=== PATIENT | female | born 1955 | race Caucasian/White ===

== ENCOUNTER 2016-10-22 17:18 | Emergency (ER) | payer BC ==
[~2016-10-22] VITALS: Ht 167.6 cm; Wt 76.7 kg
[~2016-10-22 17:18] MED LIST: ALPRAZOLAM 0.50.5 M1 PO; AMBIEN 10 MG TA10 MG PO; CARAFATE 11 GM/10 M1 PO; CIPRO500 MG PO; DIFLUCAN200 MG PO; FIORICET 50-321 EACH PO; FLAGYL500 MG PO; LOMOTIL TABLET1 EACH PO; NEURONTIN 300300 M1 PO; ONDANSETRON HCL4 M2 PO; PERCOCET 5-3251 EACH PO; PHENERGAN 25 MG25 M1 PO; TOPROL XL100 MG PO; VITAMIN D350000 UNIT PO; WELLBUTRIN SR150 MG PO; ZOFRAN ODT4 MG PO; ZOLOFT 50 MG TA50 M1 PO; ZOLOFT50 MG PO
[2016-10-22] MEDS ORDERED: NORCO 5-325 TA1 EACH PO (20:43)
[2016-10-27] MEDS ORDERED: BACTRIM DS TAB1 EACH PO (00:18)
[2016-10-30] MEDS ORDERED: ENOXAPARIN40 MG/0.1 SUBQ (12:49)
[2016-10-30] MEDS ORDERED: PROTONIX40 M2 PO (12:49)
[2016-10-31] MEDS ORDERED: PERCOCET 5-3251 EACH PO (10:31)
[2016-11-15] MEDS ORDERED: ZOFRAN ODT4 MG PO (11:43)
[2016-11-15] MEDS ORDERED: PHENERGAN 25 MG25 M1 PO (11:43)
== END 2016-10-22 20:55 | disposition home or self-care (01) ==
LOC: ER 17:18
DX: S52.612A Displaced fracture of left ulna styloid process, initial encounter for closed fracture (principal); S80.212A Abrasion, left knee, initial encounter; I10 Essential (primary) hypertension; K21.9 Gastro-esophageal reflux disease without esophagitis; J45.909 Unspecified asthma, uncomplicated; Z98.890 Other specified postprocedural states; Z90.49 Acquired absence of other specified parts of digestive tract; Z88.0 Allergy status to penicillin; Z88.1 Allergy status to other antibiotic agents; Z91.030 Bee allergy status; W54.1XXA Struck by dog, initial encounter; Y93.9 Activity, unspecified; Y92.9 Unspecified place or not applicable; Y99.9 Unspecified external cause status

== ENCOUNTER 2016-11-28 15:41 | Inpatient (IN) | payer OTHER, BC ==
[~2016-11-28] VITALS: Ht 167.6 cm; Wt 81.0 kg
--- NOTE | ~2016-11-28 | EKG ---
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
--- NOTE | ~2016-11-28 | HC ---
[facility] [place] [address] CONSULTATION Name: PRITESH KILPATRICK Room #: 311-P ADM IN M.R.#: [id number] Admission: 11/28/16 Attend Phys: Leo Avila MD Discharge: Date of : 55 Report #: [id number] THIS REPORT FOR: //name// CC: Leo Lemon DATE OF SERVICE: 11/29/2016 CONSULTATION: Infectious diseases. HISTORY OF PRESENT ILLNESS: Ms Kilpatrick is a 61-year-old white female who comes to [facility] emergency room because of depressed mental status. The ER note documents the patient was screaming and moaning incoherently. Apparently, there was a recent history of nausea, vomiting and diarrhea times 12 on the previous 24 hours. The patient has a history of GI problems and has had GI consultation during her last 2 hospitalizations, apparently has had upper and lower endoscopies twice in the last year without any significant diagnosis except for esophageal reflux. The patient did have H. pylori last year and was treated for that as well. The patient was sedated in the emergency room. She was noted to have a fever up to 101. Infectious disease consultation was requested to assist with further evaluation and management. The patient had been admitted on November 19, after suffering a fall. She had a fracture of the left wrist, which required open reduction and internal fixation. The patient was hospitalized for 3 days. She did have an infectious disease and GI consultation during that hospitalization and was discharged to a [facility]. I believe she comes to the ER today from home. The patient has past history, which includes rheumatic heart disease as a child, gastroesophageal reflux, COPD, asthma, and hypertension. It was noted in the previous notes that the patient was very stressed out by her chronic alcoholism. Her medication list does show medication for anxiety, depression, nausea, and reflux. PAST SURGICAL HISTORY: Includes appendectomy, cholecystectomy as well as open reduction and internal fixation of the left wrist. I believe she had surgery for fracture on the right wrist. ALLERGIES: The chart notes allergy to DOXYCYCLINE and anaphylactic allergy to PENICILLIN as well as BEE STINGS. MEDICATION RECONCILIATION: Current medications include acetaminophen 650 mg q.4h p.o. p.r.n., haloperidol 5 mg IV q.6 p.r.n., Toradol 30 mg IV q.8 p.r.n. The patient did receive a single dose of vancomycin in the emergency room. The patient also received the haloperidol, hydrocodone and Zofran. [address] [address] CONSULTATION Name: PRITESH KILPATRICK Room #: 311-P [facility] IN ..#: [id number] Admission: 11/28/16 Attend Phys: Leo Avila MD Discharge: Date of : 55 Report #: [id number] FAMILY HISTORY: Noncontributory. SOCIAL HISTORY: The chart shows the patient is single. Apparently, there is a daughter who was able to give additional history last night. The chart has no history of tobacco. The ER noted no alcohol, although Dr. Rice did note the history of alcoholism. No history of illegal drugs. The patient is on Medicare at age 61. REVIEW OF SYSTEMS: Unavailable as the patient is deep sedated to the point of being unresponsive. PHYSICAL EXAMINATION: GENERAL: The patient appears her stated age. She appears to be sleep being comfortably, in no distress. VITAL SIGNS: Show temperature this morning was 100.3 axillary, blood pressure 112/64, pulse 77, and respirations 19, maximum temperature last night was 101. SKIN: Shows a number of traumatic type ecchymoses on the lower extremities, no other rash, lesions, wounds nor exanthem. ENT: Negative. NEUROLOGIC: Mentally, the patient is still sedated from last night's medications. She would not arouse to voice or examination. CARDIOVASCULAR: The heart sounds are normal. LUNGS: Clear. ABDOMEN: Belly is soft, not tender. There has not been any diarrhea or stools since the patient has come to the hospital. EXTREMITIES: Shows some venostasis changes and trace to 1+ edema in the feet, but otherwise unremarkable. LABORATORY DATA: White count has gone from 9.5->6.1, hemoglobin has gone from 12.4->10.0, hematocrit from 37->30.5 percent with hydration, and platelets have gone from 274,000->190,000. Electrolytes are normal. BUN 26, creatinine has gone from 1.9->1.8. Liver function tests are normal. Lipase is normal. CPK is normal. Troponin is normal. Lactate is normal. Albumin is normal. TSH is normal. The chest x-ray is clear. Urinalysis is negative. Urine drug screen shows benzodiazepines. The patient is prescribed Xanax. Influenza nasal antigens are negative. Blood cultures times 2 are negative at 12 hours. In summary, the patient with chronic GI complaints with nausea, vomiting, and diarrhea who comes the ER screaming incoherently. She is sedated. She did have a temperature of 101.0, which is now down to 100.3. Her examination is otherwise unremarkable except for effects of sedation. At this time, I find no convincing evidence of infection. She did have a fever with abnormal mental status. One needs to be concerned about the possibility of aspiration; however, at this time I think I would like to observe the patient [facility] [address] [place] [address] CONSULTATION Name: PRITESH KILPATRICK Room #: 311-P ADM IN M.R.#: [id number] Admission: 11/28/16 Attend Phys: Leo Avila MD Discharge: Date of : 55 Report #: [id number] off antibiotic therapy, obtain followup CBC, chest x-ray, and observe her temperature. If she has another fever, we can repeat blood cultures. If the patient develops cough or pneumonia, we can try to do a sputum culture. An LP was attempted last night. At this time, the patient has nothing to suggest acute bacterial meningitis. Should she awake up and complaining of headaches, stiff neck, photophobia, repeat attempted LP possibly under fluoroscopy would be appropriate. For now, we will continue the patient on close observe. I appreciate the opportunity of input in the care of this patient. Thank you for requesting infectious disease consult. Dr. Rice will return on Thursday for additional followup. <ELECTRONICALLY SIGNED> By: Rasheed Gomez MD 11/30/16 2037 0942 1833 Rasheed Gomez MD /nt
--- NOTE | ~2016-11-28 | HC ---
[facility] [place] [address] CONSULTATION Name: PRITESH KILPATRICK Room #: 311-P [facility] IN M.R.#: [id number] Admission: 11/28/16 Attend Phys: Haja Donahue MD Discharge: 12/09/16 Date of : 55 Report #: [id number] THIS REPORT FOR: //name// CC: Haja Lemon REASON FOR CONSULTATION: Tachycardia. HISTORY OF PRESENT ILLNESS: The patient is a 61-year-old woman with a history of longstanding hypertension. She was admitted with nausea, vomiting and diarrhea. In association with this, she had intense dizziness and a "spinning room sensation." She was admitted to telemetry for further evaluation. She was also noted to be febrile to 101.9 degrees. While on telemetry monitoring, she had intermittent sinus bradycardia and this was predominantly during sleeping hours and asymptomatic. Her metoprolol dose was substantially reduced from 100 mg daily to 25 mg. She did have a reflex tachycardia with heart rates in the 90-100 range. There were frequent atrial premature complexes, although no sustained episodes of supraventricular tachycardia were identified. There have been no episodes of atrial fibrillation or atrial flutter no episodes of heart block. She did have a nonsyncopal fall while walking her dog over a month ago sustaining a left arm fracture. She reports this was not associated with loss of consciousness or dizziness of any kind. She denies a history of syncope. She denies chest heaviness, pressure or ischemic type symptoms. HOME MEDICATIONS: Include appropriate on XL 150 mg daily, Toprol-XL 100 mg daily and alprazolam. PAST MEDICAL HISTORY: Medical records have been reviewed and include history of tonsillectomy, hypertension, cholecystectomy, H. pylori and prior sepsis. SOCIAL HISTORY: Nonsmoker. FAMILY HISTORY: Unremarkable for premature coronary artery disease. REVIEW OF SYSTEMS: All systems negative except as that noted above. PHYSICAL EXAMINATION: GENERAL: A pleasant woman, in no distress. VITAL SIGNS: Blood pressure is 130/73, heart rate of 80 and regular. She is afebrile and 178 pounds. HEENT: There are neither xanthelasma, subcutaneous xanthomata, oral mucosal or digital cyanosis or kyphoscoliosis present. CHEST: Clear to auscultation and percussion. CARDIAC: Regular rate and rhythm with a soft systolic murmur at the left sternal border. Jugular venous pressure is not elevated. ABDOMEN: Soft and nontender. Left forearm is in a cast. EXTREMITIES: Without cyanosis, clubbing or edema. Radial pulses are 2+. [facility] [address] [place] [address] CONSULTATION Name: PRITESH KILPATRICK Room #: [address] [place] [address].#: [id number] Admission: 11/28/16 Attend Phys: Haja Donahue MD Discharge: 12/09/16 Date of : 55 Report #: [id number] NEUROLOGICAL: She is alert with a nonfocal exam. LABORATORY DATA: Sodium 139; potassium 3.3, which is being supplemented and creatinine 1.4, down from 1.9 on admission. White count 4.6, hemoglobin 11, hematocrit 34 and platelet count 220. RADIOLOGICAL DATA: Ventilation perfusion scan was negative. Lower extremity venous Doppler was negative. Chest x-ray was normal. EKG, sinus tachycardia, otherwise normal tracing. IMPRESSION: 1. Intermittent sinus bradycardia during sleeping hours, clinically asymptomatic. 2. Sinus tachycardia, likely representing beta blockade withdrawal, component of fevers may also be contributing. 3. Nausea, vomiting and diarrhea, resolved. 4. Hypertension. 5. Sleep apnea by history, probably severe. This may be driving some of her dysrhythmias and hypertension. RECOMMENDATIONS: 1. Continued use of metoprolol succinate. I agree with the use of amlodipine in addition for systolic hypertension. 2. Consider outpatient sleep study. 3. Recent thyroid function studies have been normal. No additional cardiovascular testing or evaluation is needed. I have discussed these issues with the patient in detail. Thank you for asking me to participate in her care. <ELECTRONICALLY SIGNED> By: Dejuan Mays MD, FACC 12/10/16 0939 1806 0343 Dejuan Mays MD, FACC /nt
--- NOTE | ~2016-11-28 | HC ---
[facility] [place] [address] CONSULTATION Name: PRITESH KILPATRICK Room #: 311-P ADM IN M.R.#: [id number] Admission: 11/28/16 Attend Phys: Haja Donahue MD Discharge: Date of : 55 Report #: [id number] THIS REPORT FOR: //name// CC: Haja Lemon DATE OF SERVICE: 12/01/2016 HISTORY OF PRESENT ILLNESS: The patient is a 61-year-old white female admitted with acute mental status changes, fever, unknown etiology, was screaming. CT of the head was negative, was combative, given Haldol. Gradually stabilized with improvement of her overall mentation. She has some persistent nausea and vomiting and gastroenterology is following, some generalized abdominal pain. She is thought to have a fever, question viral. Mental status changes have improved. She is noted to be alert and oriented x 3, question if this was due to polypharmacy/benzodiazepines, appears to be better. We are seeing her in rehabilitation medicine consultation. PAST MEDICAL HISTORY: Includes cholecystectomy, tonsillectomy, hypertension, GERD. She had a recent left arm fracture. She indicated she underwent surgery of the left distal radius with closed reduction and percutaneous pinning by Dr. Weiner. She has a history of a "leaky" heart valve. History of H. pylori and sepsis. MEDICATIONS: Please see the full medication listing. SOCIAL HISTORY: Lives in a house alone. Premorbid front-wheeled walker ambulator, 6 steps in, was driving, has involved family. REVIEW OF SYSTEMS: Complains of some nausea. Notes that she utilizes her left upper extremity with the short arm cast in place for functional ADLs and placement on the walker handle. Did not offer any complaints of other extremity pain. Again, no chest pain or shortness of breath. PHYSICAL EXAMINATION: GENERAL: She is a 61-year-old white female in no obvious distress. VITAL SIGNS: Last recorded temperature is 98, pulse 64, respirations 16 and blood pressure 175/96. NEUROLOGIC: She is alert. She follows basic 1 step commands without difficulty. Facies are symmetric. Functional range of motion of the right upper extremity is without focal weakness. Left upper extremity reveals the short arm cast. It appears to have good functional use of that upper extremity with strength at least a grade 4-/5. In her lower extremities, there is no focal calf swelling with functional range of motion with strength to grade 4-/5. She has been contact guard with sit to stand, on occasional min assist. She has ambulated up to 80 feet front-wheeled walker, contact guard assistance. [address] [address] CONSULTATION Name: PRITESH KILPATRICKHLEEN Room #: 311-P [facility] IN M.R.#: [id number] Admission: 11/28/16 Attend Phys: Haja Donahue MD Discharge: Date of : 55 Report #: [id number] ASSESSMENT: A 61-year-old white female with the following problem list: 1. Acute mental status changes, question due to polypharmacy. 2. Fever, question etiology, possibly viral. 3. Acute on chronic renal failure. 4. Nausea with some continued symptoms, GI is involved, Zoan p.r.n. 5. Enteritis. 6. Question benzodiazepine withdrawal. PLAN: Therapies are working with her on gradually improving her strength and functional mobility issues. We will add occupational therapy. Note that, case management is looking into retirement facility options. Would agree with this plan. Would recommend a retirement facility stay for this patient. <ELECTRONICALLY SIGNED> By: Migue Aguirre MD 12/02/16 1205 1626 2342 Migue Aguirre MD /nt
[~2016-11-28 15:41] MED LIST changes: +BACTRIM DS TAB1 EACH PO; +ENOXAPARIN40 MG/0.1 SUBQ; +NORCO 5-325 TA1 EACH PO; +PROTONIX40 M2 PO
[2016-11-28 16:11] LABS: ABSOLUTE NEUTROPHILS 7.2 thou/uL (1.4-8.2); BASOPHILS 0.6 % (0.0-2.0); EOSINOPHILS 0.5 % (0.0-3.0); HEMATOCRIT 37.3 % (37.0-47.0); HEMOGLOBIN 12.4 gm/dL (12.0-15.0); LYMPHOCYTES 18.4 % (24.0-44.0); MCH 29.4 pg (26.0-34.0); MCHC 33.2 g/dL (28.0-37.0); MCV 88.7 fL (80.0-100.0); MONOCYTES 4.6 % (1.0-8.0); PLATELET COUNT 274 thou/uL (150-400); POLYS 75.9 % (36.0-66.0); RDW 14.4 % (10.5-14.5); WBC 9.5 thou/uL (4.0-11.0)
[2016-11-28 16:16] LABS: MANUAL DIFF NO
[2016-11-28 16:25] LABS: ALBUMIN 3.5 g/dL (3.4-5.0); CALCIUM 9.8 mg/dL (8.5-10.1); CREATININE 1.9 mg/dL (0.6-1.3); POTASSIUM 3.8 mmol/L (3.5-5.1); TOTAL BILIRUBIN 1.4 mg/dL (<0.1-1.0); TOTAL PROTEIN 7.5 g/dL (6.4-8.2)
[2016-11-28 16:37] LABS: TROPONIN-I < 0.04 ng/mL (<0.04-0.07)
[2016-11-28 18:01] LABS: URINE BLOOD NEGATIVE (Negative); URINE COLOR YELLOW; URINE GLUCOSE-RANDOM* NEGATIVE (Negative); URINE KETONES 1+ (Negative); URINE NITRITE NEGATIVE (Negative); URINE PROTEIN (DIPSTICK) NEGATIVE (Negative); URINE SPECIFIC GRAVITY 1.025 (1.003-1.035); URINE UROBILINOGEN 0.2 E.U./dl (0.2-1.0)
[2016-11-28 18:04] LABS: URINE BILIRUBIN NEGATIVE (Negative)
[2016-11-28 18:37] LABS: AMP/METHAMP Negative (Negative); BARBITURATES Negative (Negative); BENZODIAZEPINES POSITIVE (Negative); COCAINE Negative (Negative); METHADONE Negative (Negative); OPIATES Negative (Negative); PCP Negative (Negative); THC Negative (Negative)
[2016-11-29 03:03] LABS: ABSOLUTE NEUTROPHILS 3.8 thou/uL (1.4-8.2); BASOPHILS 0.6 % (0.0-2.0); EOSINOPHILS 0.7 % (0.0-3.0); HEMATOCRIT 30.5 % (37.0-47.0); LYMPHOCYTES 27.3 % (24.0-44.0); MCH 29.6 pg (26.0-34.0); MCV 89.8 fL (80.0-100.0); MONOCYTES 9.4 % (1.0-8.0); RBC 3.39 mil/uL (4.20-5.00); RDW 14.5 % (10.5-14.5); WBC 6.1 thou/uL (4.0-11.0)
[2016-11-29 03:12] LABS: PLATELET COUNT 190 thou/uL (150-400)
[2016-11-29 03:13] LABS: MANUAL DIFF NO
[2016-11-29 03:15] LABS: ALBUMIN 2.6 g/dL (3.4-5.0); CALCIUM 8.6 mg/dL (8.5-10.1); CREATININE 1.8 mg/dL (0.6-1.3); MAGNESIUM 1.3 mg/dL (1.8-2.4); POTASSIUM 3.8 mmol/L (3.5-5.1); TOTAL BILIRUBIN 1.2 mg/dL (<0.1-1.0)
[2016-11-29 08:33] LABS: CHOLESTEROL 184 mg/dL (<200); HDL CHOLESTEROL 48 mg/dL (>40); LDL CHOLESTEROL 121 mg/dL (<100); TC:HDL 3.8 Ratio (Not establshd); TRIGLYCERIDE 75 mg/dL (<150); VLDL 15 mg/dL (<40)
[2016-11-29 18:06] LABS: FREE T4 1.56 ng/dL (0.82-1.77)
[2016-11-29 20:10] LABS: GLYCOHEMOGLOBIN (HGB A1C) 4.8 % (4.8-5.6)
[2016-11-30 02:57] LABS: ABSOLUTE NEUTROPHILS 3.1 thou/uL (1.4-8.2); BASOPHILS 0.5 % (0.0-2.0); HEMATOCRIT 28.3 % (37.0-47.0); HEMOGLOBIN 9.4 gm/dL (12.0-15.0); LYMPHOCYTES 27.3 % (24.0-44.0); MCH 29.5 pg (26.0-34.0); MCHC 33.1 g/dL (28.0-37.0); MCV 89.2 fL (80.0-100.0); PLATELET COUNT 163 thou/uL (150-400); POLYS 63.2 % (36.0-66.0); RBC 3.18 mil/uL (4.20-5.00); RDW 14.5 % (10.5-14.5)
[2016-11-30 03:00] LABS: MANUAL DIFF NO
[2016-11-30 03:12] LABS: ALBUMIN 2.3 g/dL (3.4-5.0); CALCIUM 8.4 mg/dL (8.5-10.1); CREATININE 1.4 mg/dL (0.6-1.3); POTASSIUM 3.5 mmol/L (3.5-5.1); TOTAL BILIRUBIN 0.8 mg/dL (<0.1-1.0); TOTAL PROTEIN 5.3 g/dL (6.4-8.2)
[2016-11-30 08:03] LABS: MAGNESIUM 1.7 mg/dL (1.8-2.4)
[2016-12-01 05:20] LABS: CALCIUM 9.1 mg/dL (8.5-10.1); CREATININE 1.4 mg/dL (0.6-1.3); MAGNESIUM 1.5 mg/dL (1.8-2.4); POTASSIUM 3.6 mmol/L (3.5-5.1)
[2016-12-02] MEDS ORDERED: NEXIUM40 MG PO (10:12)
[2016-12-02] MEDS ORDERED: TOPROL XL100 MG PO (10:12)
[2016-12-02] MEDS ORDERED: PERCOCET 5-3251 EACH PO (10:12)
[2016-12-02] MEDS ORDERED: CARAFATE 11 GM/10 M1 PO (10:12)
[2016-12-02] MEDS ORDERED: HYDRALAZINE 2525 MG PO (10:13)
[2016-12-06] MEDS ORDERED: NORVASC10 MG PO (09:04)
[2016-12-06 19:52] LABS: HEMATOCRIT 34.6 % (37.0-47.0); HEMOGLOBIN 11.5 gm/dL (12.0-15.0); MCH 29.2 pg (26.0-34.0); MCHC 33.2 g/dL (28.0-37.0); MCV 87.9 fL (80.0-100.0); RBC 3.94 mil/uL (4.20-5.00); RDW 14.6 % (10.5-14.5); WBC 6.4 thou/uL (4.0-11.0)
[2016-12-06 20:12] LABS: % SATURATION 21 % (20-39); IRON 34 ug/dL (50-170); TIBC 165 ug/dL (250-450); UIBC 131 ug/dL
[2016-12-06 20:30] LABS: FOLIC ACID 3.4 ng/mL (8.6-58.9)
[2016-12-06 20:32] LABS: CREATININE 1.7 mg/dL (0.6-1.3); POTASSIUM 3.5 mmol/L (3.5-5.1)
[2016-12-06 20:37] LABS: ALBUMIN 2.6 g/dL (3.4-5.0); TOTAL BILIRUBIN 0.7 mg/dL (<0.1-1.0); TOTAL PROTEIN 6.3 g/dL (6.4-8.2)
[2016-12-07 05:53] LABS: HEMOGLOBIN 11.1 gm/dL (12.0-15.0); MCH 29.2 pg (26.0-34.0); MCHC 32.8 g/dL (28.0-37.0); MCV 88.9 fL (80.0-100.0); RBC 3.82 mil/uL (4.20-5.00); RDW 14.8 % (10.5-14.5); WBC 4.6 thou/uL (4.0-11.0)
[2016-12-07 06:10] LABS: CALCIUM 8.8 mg/dL (8.5-10.1); CREATININE 1.4 mg/dL (0.6-1.3); POTASSIUM 3.3 mmol/L (3.5-5.1)
[2016-12-08 05:40] LABS: HEMOGLOBIN 11.3 gm/dL (12.0-15.0); MCH 29.6 pg (26.0-34.0); MCHC 33.4 g/dL (28.0-37.0); MCV 88.6 fL (80.0-100.0); RBC 3.83 mil/uL (4.20-5.00); RDW 14.7 % (10.5-14.5); WBC 4.5 thou/uL (4.0-11.0)
[2016-12-08 05:41] LABS: CALCIUM 9.6 mg/dL (8.5-10.1); CREATININE 1.2 mg/dL (0.6-1.3)
[2016-12-09] MEDS ORDERED: TOPROL XL25 MG PO (10:23)
[2016-12-09] MEDS ORDERED: METOPROLOL SUCC50 MG PO (10:48)
[2016-12-09] MEDS ORDERED: CLARITHROMYCIN250 M2 PO (10:48)
[2016-12-09] MEDS ORDERED: FLAGYL 250 MG250 MG PO (10:48)
== END 2016-12-09 14:08 | DRG 682 ==
LOC: ER 15:41 → EROBS 19:07 → 3N 20:15 → ICU 20:54 → 3N 11-30 09:45
PROVIDERS: Family Medicine; Hospitalist; Internal Medicine Infectious Disease; Nurse Practitioner; Nurse Practitioner Family; Psychiatry & Neurology Neurology
DX: N17.9 Acute kidney failure, unspecified (principal); G93.40 Encephalopathy, unspecified; E44.1 Mild protein-calorie malnutrition; K52.9 Noninfective gastroenteritis and colitis, unspecified; M19.90 Unspecified osteoarthritis, unspecified site; K21.9 Gastro-esophageal reflux disease without esophagitis; J45.909 Unspecified asthma, uncomplicated; I09.9 Rheumatic heart disease, unspecified; B02.9 Zoster without complications; E86.0 Dehydration; E80.6 Other disorders of bilirubin metabolism; Z60.2 Problems related to living alone; R00.1 Bradycardia, unspecified; G47.30 Sleep apnea, unspecified; Z96.659 Presence of unspecified artificial knee joint; I12.9 Hypertensive chronic kidney disease with stage 1 through stage 4 chronic kidney disease, or unspecified chronic kidney disease; N18.9 Chronic kidney disease, unspecified; K57.90 Diverticulosis of intestine, part unspecified, without perforation or abscess without bleeding; Z96.669 Presence of unspecified artificial ankle joint; E86.9 Volume depletion, unspecified; J44.9 Chronic obstructive pulmonary disease, unspecified; T42.4X5A Adverse effect of benzodiazepines, initial encounter; Y92.89 Other specified places as the place of occurrence of the external cause; Z90.49 Acquired absence of other specified parts of digestive tract; Z88.0 Allergy status to penicillin; Z88.1 Allergy status to other antibiotic agents; Z80.0 Family history of malignant neoplasm of digestive organs; Z79.899 Other long term (current) drug therapy; Z87.81 Personal history of (healed) traumatic fracture
CPT/HCPCS: 10078; 10096

== ENCOUNTER 2016-12-17 15:05 | Emergency (ER) | payer OTHER, BC ==
[~2016-12-17] VITALS: Ht 167.6 cm; Wt 79.4 kg
--- NOTE | ~2016-12-17 | EKG ---
[address] [place] [address] ELECTROCARDIOGRAM REPORT Name: PRITESH KILPATRICKHLEEN Room #: [facility]#: [id number] Admission: 12/17/16 Attend Phys: Discharge: 12/17/16 Date of : 55 Report #: [id number] THIS REPORT FOR: //name// 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 significant abnormality Compared to ECG 11/28/2016 16:23:47 Sinus tachycardia no longer present ST and T wave abnormality no longer present Electronically Signed On 12-18-2016 8:25:52 CDT by Dejuan Mays [email or web address] <ELECTRONICALLY SIGNED> By: Dejuan Mays MD, [facility] 12/18/16 0825 154 154 Dejuan Mays MD, [facility] /EPI
[~2016-12-17 15:05] MED LIST changes: +CLARITHROMYCIN250 M2 PO; +FLAGYL 250 MG250 MG PO; +HYDRALAZINE 2525 MG PO; +METOPROLOL SUCC50 MG PO; +NEXIUM40 MG PO; +NORVASC10 MG PO; +TOPROL XL25 MG PO
[2016-12-17 15:34] LABS: ABSOLUTE NEUTROPHILS 5.2 thou/uL (1.4-8.2); BASOPHILS 1.2 % (0.0-2.0); EOSINOPHILS 0.9 % (0.0-3.0); HEMATOCRIT 34.9 % (37.0-47.0); HEMOGLOBIN 11.3 gm/dL (12.0-15.0); MCH 28.9 pg (26.0-34.0); MCHC 32.5 g/dL (28.0-37.0); MONOCYTES 5.9 % (1.0-8.0); PLATELET COUNT 298 thou/uL (150-400); RBC 3.91 mil/uL (4.20-5.00); RDW 15.3 % (10.5-14.5); WBC 7.5 thou/uL (4.0-11.0)
[2016-12-17 15:37] LABS: MANUAL DIFF NO
[2016-12-17 15:45] LABS: ANION GAP 8 mmol/L (7-16); BUN 15 mg/dL (7-18); CALCIUM 9.1 mg/dL (8.5-10.1); CHLORIDE 104 mmol/L (98-107); CO2 27 mmol/L (21-32); CREATININE 1.7 mg/dL (0.6-1.3); GLUCOSE 116 mg/dL (70-99); POTASSIUM 3.5 mmol/L (3.5-5.1); SODIUM 139 mmol/L (136-145)
[2016-12-17 15:52] LABS: ALBUMIN 3.1 g/dL (3.4-5.0); ALKALINE PHOSPHATASE 65 U/L (46-116); SGOT 16 U/L (15-37); SGPT 11 U/L (30-65); TOTAL BILIRUBIN 0.5 mg/dL (<0.1-1.0); TOTAL PROTEIN 6.8 g/dL (6.4-8.2); TROPONIN-I < 0.04 ng/mL (<0.04-0.07)
== END 2016-12-17 17:20 ==
LOC: ER 15:05
PROVIDERS: Physician Assistant
DX: R55 Syncope and collapse (principal); E86.0 Dehydration; Z98.890 Other specified postprocedural states; Z90.49 Acquired absence of other specified parts of digestive tract; I12.9 Hypertensive chronic kidney disease with stage 1 through stage 4 chronic kidney disease, or unspecified chronic kidney disease; N18.9 Chronic kidney disease, unspecified; N17.9 Acute kidney failure, unspecified; K21.9 Gastro-esophageal reflux disease without esophagitis; J45.909 Unspecified asthma, uncomplicated; Z91.030 Bee allergy status; Z88.0 Allergy status to penicillin; Z88.1 Allergy status to other antibiotic agents

== ENCOUNTER 2017-05-12 14:56 | Inpatient (IN) | payer OTHER, BC ==
[~2017-05-12] VITALS: Ht 167.6 cm; Wt 64.4 kg
--- NOTE | ~2017-05-12 | EKG ---
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 : 1955 Requested By: Edson Liu Order Number: [id number] MD: Deujan Mays Measurements Intervals [place] Rate: 82 P: 55 NM: 150 QRS: 0 QRSD: 80 T: 23 QT: 371 QTc: 434 Interpretive Statements Sinus rhythm Low voltage, precordial leads Borderline T abnormalities, anterior leads Compared to ECG 12/17/2016 15:41:31 T-wave abnormality now present Electronically Signed On 05-13-2017 7:52:55 CDT by Dejuan Mays [email or web address] <ELECTRONICALLY SIGNED> By: Dejuan Mays MD, FACC 05/13/17 0752 1510 1510 Dejuan Mays MD, [facility] /EPI
--- NOTE | ~2017-05-12 | P ---
[facility] [place] [address] PROCEDURE REPORT Name: PRITESH KILPATRICK Room #: 313-P [facility] IN ..#: [id number] Admission: 05/12/17 Attend Phys: Leo Avila MD Discharge: 05/14/17 Date of : 55 Report #: [id number] THIS REPORT FOR: //name// CC: Leo Lemon DATE OF SERVICE: 05/14/2017 PROCEDURE: Implantable loop recorder insertion. PREOPERATIVE DIAGNOSIS: Syncope. POSTOPERATIVE DIAGNOSIS: Syncope. HISTORY OF PRESENT ILLNESS: The patient is a 62-year-old female with a recurrent hospitalization for unexplained syncope. She has echo showing normal LV size and function. Her EKG shows no significant conduction abnormalities. She has had some brief runs of atrial tachycardia on telemetry, but this was asymptomatic and not associated with the conversion pause. She is here for implantable loop recorder insertion. DESCRIPTION OF PROCEDURE: The patient underwent informed consent. She was prepped and draped in sterile fashion and received IV antibiotics. I injected 30 mL of lidocaine at the second intercostal space, just left of the sternal border. A small incision was made. The device was injected under the skin and the incision was closed with 2 layers of suture and surgical glue was placed to the outer skin layer. There were no complications or significant bleeding. The implanted device was a [employer] BioMonitor 2, reference #524402, serial #[id number]. There was adequate sensing of the cardiac electrograms and device was set to the nominal settings. CONCLUSIONS: Successful implantation of an implantable loop recorder for recurrent syncopal episodes of unexplained etiology. By: 1022 1113 Dale Rice MD /nt
--- NOTE | ~2017-05-12 | 2DMMODE ---
[facility] [address] [place] [address] 2 D/M-MODE ECHOCARDIOGRAM Name: FINESSEPRITESH BOBBY Room #: 313-P ADM IN ..#: [id number] Admission: 05/12/17 Attend Phys: Leo Avila MD Discharge: Date of : 55 Date of Service: 05/13/17 1307 Report #: [id number] THIS REPORT FOR: //name// APPROVED REPORT Study performed: 05/13/2017 11:33:48 EXAM: Comprehensive 2D, Doppler, and color-flow Echocardiogram Patient Location: Bedside Room #: 313 Status: routine BSA: 1.73 HR: 74 bpm BP: 127/85 mmHg Other Information Study Quality: Good Indications Syncope Tachycardia 2D Dimensions RVDd: 30.31 mm LVEF(%): 53.43 (>50%) IVSd: 8.56 (7-11mm) LVOT Diam: 21.21 (18-24mm) LVDd: 43.99 mm PWd: 8.65 (7-11mm) Ascending Ao: 28.80 (22-36mm) LVDs: 31.95 (25-40mm) Aortic Root: 29.21 mm IVC: 14.00 mm Martinez's LVEF: 53.43 % Volumes Left Atrial Volume (Systole) Single Plane 4CH: 51.18 mL Single Plane 2CH: 70.47 mL LA ESV Index: 40.00 mL/m2 Aortic Valve AoV Peak Evens.: 1.31 m/s AO Peak Gr.: 6.90 mmHg LVOT Max P.77 mmHg LVOT Max V: 1.20 m/s GWEN Vmax: 3.23 cm2 Mitral Valve E/A Ratio: 1.2 MV Decel. Time: 152.42 ms [facility] [place] [place] [address] 2 D/M-MODE ECHOCARDIOGRAM Name: FINESSEPRTIESHMercy ROSALES Room #: 313-P [facility] IN M.R.#: [id number] Admission: 05/12/17 Attend Phys: Leo Avila MD Discharge: Date of : 55 Date of Service: 05/13/17 1307 Report #: [id number] MV E Max Evens.: 0.89 m/s MV A Evens.: 0.75 m/s MV PHT: 44.20 ms IVRT: 87.66 ms Pulmonary Valve PV Peak Evens.: 1.04 m/s PV Peak Gr.: 4.34 mmHg Pulmonary Vein P Vein S: 0.59 m/s P Vein A: 0.28 m/s P Vein D: 0.27 m/s P Vein A Dur.: 124.6 msec P Vein S/D Ratio: 2.19 Tricuspid Valve TR Peak Evens.: 2.53 m/s RAP Estimate: 5.00 mmHg TR Peak Gr.: 25.68 mmHg PA Pressure: 31.00 mmHg Left Ventricle The left ventricle is normal size. There is normal left ventricular wall thickness. The left ventricular systolic function is normal. The left ventricular ejection fraction is within the normal range. LVEF is 55-60%. The left ventricular diastolic function is normal. Right Ventricle The right ventricle is normal size. The right ventricular systolic function is normal. Atria Left atrium is dilated. The right atrium size is normal. Aortic Valve The aortic valve is normal in structure. Aortic valve is calcified. Trace aortic regurgitation. There is no aortic valvular stenosis. Mitral Valve The mitral valve is normal in structure. Mild mitral regurgitation. No evidence of mitral valve stenosis. Tricuspid Valve The tricuspid valve is normal in structure. There is trace tricuspid regurgitation. The right atrial pressure is estimated at 5 mmHg. There is no pulmonary hypertension. Pulmonic Valve [facility] [address] [place] [address] 2 D/M-MODE ECHOCARDIOGRAM Name: PRITESH KILPATRICK Room #: 313-P [facility] IN [facility]#: [id number] Admission: 05/12/17 Attend Phys: Leo Avila MD Discharge: Date of : 55 Date of Service: 05/13/17 1307 Report #: [id number] The pulmonary valve is normal in structure. There is no pulmonic valvular regurgitation. Great Vessels The aortic root is normal in size. IVC is normal in size and collapses >50% with inspiration. Pericardium There is no pericardial effusion. <Conclusion> The left ventricle is normal size. The left ventricular systolic function is normal. The right ventricle is normal size. Left atrium is dilated. Trace aortic regurgitation. Mild mitral regurgitation. There is trace tricuspid regurgitation. The right atrial pressure is estimated at 5 mmHg. There is no pulmonary hypertension. <ELECTRONICALLY SIGNED> By: Caesar Varela MD 05/13/17 1307 1307 1307 Caesar Varela MD /INF
[2017-05-12 14:57] VITALS: BP 134/73
[2017-05-12 20:37] LABS: HEMATOCRIT 28.2 % (37.0-47.0); HEMOGLOBIN 9.6 gm/dL (12.0-15.0); MANUAL DIFF NO; MCH 30.5 pg (26.0-34.0); MCHC 33.9 % (28.0-37.0); MCV 89.8 fL (80.0-100.0); PLATELET COUNT 239 thou/uL (150-400); RBC 3.13 mil/uL (4.20-5.00); RDW 15.8 % (10.5-14.5); WBC 7.3 thou/uL (4.0-11.0)
[2017-05-12 20:38] LABS: BASOPHILS 0.2 % (0.0-2.0); EOSINOPHILS 1.1 % (0.0-3.0); LYMPHOCYTES 19.7 % (24.0-44.0); MONOCYTES 4.1 % (1.0-8.0); POLYS 74.9 % (36.0-66.0)
[2017-05-12 21:06] LABS: CALCIUM 8.5 mg/dL (8.5-10.1); CREATININE 1.2 mg/dL (0.6-1.0); POTASSIUM 3.4 mmol/L (3.5-5.1)
[2017-05-12 21:07] LABS: MAGNESIUM 1.1 mg/dL (1.8-2.4)
[2017-05-12 21:13] LABS: TROPONIN-I 0.02 ng/mL (<0.04-0.07)
[2017-05-12 21:49] VITALS: BP 153/89
[2017-05-13 00:12] VITALS: BP 133/77
[2017-05-13 03:50] VITALS: BP 131/94
[2017-05-13 06:37] LABS: HEMATOCRIT 29.8 % (37.0-47.0); MCH 30.1 pg (26.0-34.0); MCHC 33.4 g/dL (28.0-37.0); MCV 90.2 fL (80.0-100.0); RBC 3.3 mil/uL (4.20-5.00); RDW 16.2 % (10.5-14.5); WBC 5.8 thou/uL (4.0-11.0)
[2017-05-13 06:52] LABS: CALCIUM 8.6 mg/dL (8.5-10.1); CREATININE 1.2 mg/dL (0.6-1.0); POTASSIUM 3.1 mmol/L (3.5-5.1)
[2017-05-13 08:47] VITALS: BP 127/85; BP 139/63
[2017-05-13 08:50] VITALS: BP 127/85
[2017-05-13 16:48] VITALS: BP 137/77
[2017-05-13 20:45] VITALS: BP 156/88
[2017-05-14 05:15] VITALS: BP 114/69
[2017-05-14 09:47] VITALS: BP 155/105
[2017-05-14 09:48] VITALS: BP 144/96; BP 156/79
[2017-05-14 11:34] VITALS: BP 165/67
[2017-05-14 15:07] LABS: ABSOLUTE NEUTROPHILS 4.4 thou/uL (1.4-8.2); BASOPHILS 0.2 % (0.0-2.0); EOSINOPHILS 1.3 % (0.0-3.0); HEMATOCRIT 28.4 % (37.0-47.0); HEMOGLOBIN 9.4 gm/dL (12.0-15.0); LYMPHOCYTES 16.7 % (24.0-44.0); MCH 29.9 pg (26.0-34.0); MCHC 32.9 g/dL (28.0-37.0); PLATELET COUNT 216 thou/uL (150-400); POLYS 75.8 % (36.0-66.0); RBC 3.13 mil/uL (4.20-5.00); RDW 16.3 % (10.5-14.5); WBC 5.8 thou/uL (4.0-11.0)
[2017-05-14 15:09] LABS: MANUAL DIFF NO
[2017-05-14 15:14] LABS: CALCIUM 8.1 mg/dL (8.5-10.1); CREATININE 1.2 mg/dL (0.6-1.0); MAGNESIUM 1.4 mg/dL (1.8-2.4); POTASSIUM 3.7 mmol/L (3.5-5.1)
[2017-05-14 17:10] VITALS: BP 172/106
== END 2017-05-14 18:46 | disposition home or self-care (01) | DRG 261 ==
LOC: ER 14:56 → EROBS 20:59 → 3N 20:59
PROVIDERS: Emergency Medicine; Hospitalist; Nurse Practitioner Family
PROC: 0JH632Z Insertion of Monitoring Device into Chest Subcutaneous Tissue and Fascia, Percutaneous Approach (ICD-10-PCS; principal; 2017-05-14)
DX: R55 Syncope and collapse (principal); N17.9 Acute kidney failure, unspecified; I38 Endocarditis, valve unspecified; M19.90 Unspecified osteoarthritis, unspecified site; K21.9 Gastro-esophageal reflux disease without esophagitis; J45.909 Unspecified asthma, uncomplicated; E87.6 Hypokalemia; N18.9 Chronic kidney disease, unspecified; I12.9 Hypertensive chronic kidney disease with stage 1 through stage 4 chronic kidney disease, or unspecified chronic kidney disease; E83.42 Hypomagnesemia; F32.9 Major depressive disorder, single episode, unspecified; N63 Unspecified lump in breast; W18.39XA Other fall on same level, initial encounter; Y93.01 Activity, walking, marching and hiking; Z90.49 Acquired absence of other specified parts of digestive tract; Z79.899 Other long term (current) drug therapy; Z91.030 Bee allergy status; Z88.1 Allergy status to other antibiotic agents; Z88.0 Allergy status to penicillin; Z80.0 Family history of malignant neoplasm of digestive organs; Y92.090 Kitchen in other non-institutional residence as the place of occurrence of the external cause; Y99.8 Other external cause status
CPT/HCPCS: 10096

== ENCOUNTER 2017-05-25 16:18 | Inpatient (IN) | payer OTHER, BC ==
[~2017-05-25] VITALS: Ht 167.6 cm; Wt 65.3 kg
--- NOTE | ~2017-05-25 | EKG ---
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: GWYN : 1955 Requested By: Dale Rice Order Number: [id number] MD: Dejuan Mays Measurements Intervals [place] Rate: 66 P: 17 GA: 137 QRS: 10 QRSD: 78 T: 34 QT: 393 QTc: 412 Interpretive Statements Sinus rhythm Early R-wave progression Nonspecific ST segment abnormality Compared to ECG 05/12/2017 15:10:25 No significant changes Electronically Signed On 05-27-2017 8:43:29 CDT by Dejuan Mays [email or web address] <ELECTRONICALLY SIGNED> By: Dejuan Mays MD, [facility] 05/27/17 0843 1416 1416 Dejuan Mays MD, [facility] /EPI
--- NOTE | ~2017-05-25 | S ---
[facility] [place] [address] SURGICAL PATH RPT PROCEDURE Name: PRITESH KILPATRICKHLEEN Room #: 310-P ADM IN M.R.#: [id number] Admission: 05/25/17 Date of : 55 Discharge: Report #: [id number] Path Case #: [id number] PATHOLOGY REPORT COLLECTION DATE: 05/28/2017 RECEIVED DATE: 05/29/2017 SUBMITTING PHYS: Dr. Latrice Cross OTHER PHYS: Dr. Josse Lemon SPECIMEN(S) RECEIVED: Esteban at antrum * * * * * * * * * * * * FINAL DIAGNOSIS: Gastric mucosa, antrum rule out H. pylori, endoscopic biopsy: - One fragment showing mild chronic active gastritis. - Negative for intestinal metaplasia or atrophy. - Negative for Helicobacter pylori. COMMENT: Helicobacter pylori immunohistochemical stain performed on block A1-negative. (IUV:mgr; 06/02/2017) PATHOLOGIST: Brie Rodriguez M.D. REPORT ELECTRONICALLY SIGNED BY: Brie Rodriguez M.D. DATE/TIME: 06/02/2017 16:34 * * * * * * * * * * * * GROSS PATHOLOGY: Received in formalin labeled "Pritesh Kilpatrick BX at antrum r/o H. pylori," are two segments of anaya soft tissue measuring 0.6 x 0.4 x 0.3 cm in aggregate dimensions and ranging from 0.4 to 0.4 cm in maximum dimension. The specimen is submitted entirely in cassette A1. (TSD; 05/29/2017) CLINICAL HISTORY: Pre-OP DX: Hx H. pylori Post-OP DX: Hiatal hernia, esophageal stricture INITIAL CPT CODE(S): A; 81877, 35345 Professional services performed by [facility] at [facility] [address] [place] [address] SURGICAL PATH RPT PROCEDURE Name: PRITESH KILPATRICK Room #: 310-P ADM IN M.R.#: [id number] Admission: 05/25/17 Date of : 55 Discharge: Report #: [id number] Path Case #: [id number] [address] [facility] , [place] [address] Technical services performed by [facility] at [address] [place] [address], [facility] [address], [place] [address]. [place] [address] PHONE: [phone] DIRECTOR: Juma Jimenez M.D. * * * END OF REPORT * * *
--- NOTE | ~2017-05-25 | P ---
[facility] [place] [address] PROCEDURE REPORT Name: PRITESH KILPATRICK Room #: 310-P [facility] IN M.R.#: [id number] Admission: 05/25/17 Attend Phys: Josse Arceo DO Discharge: Date of : 55 Report #: [id number] THIS REPORT FOR: //name// CC: Josse Barrett MD DATE OF SERVICE: 05/28/2017 PROCEDURE: EGD with biopsies and esophageal dilatation. INDICATION FOR PROCEDURE: Evaluate dysphagia, nausea, vomiting, peptic ulcer disease history and history of H. pylori. The patient had a normal gastric emptying study in November of this year. She has lost 75 pounds unintentionally over the last several months, the reason for this unintentionally weight loss is not clear. We need to be certain that the H. pylori has been cleared with the antibiotic therapy. Informed consent for this procedure was obtained prior to the administration of any medication. The risks of the procedure, which include bleeding, perforation, infection, complications of sedation and the possibility I could miss something have been explained to the patient and she has indicated her consent by signing. Propofol was slowly titrated before and during this procedure for patient comfort by the anesthesia service. The LE TOTEn upper videoscope was introduced through the upper esophageal sphincter and advanced under direct visualization to the descending duodenum. Findings are noted on withdrawal of the scope. The duodenal mucosa appears normal throughout its entirety. Pylorus, normal mucosa. Antrum, normal mucosa. Biopsies were obtained times 2 from the antrum for histopathology to evaluate H. pylori. Body, normal mucosa. Cardia and fundus, normal mucosa. Retroflex view reveals a small hiatal hernia. The scope was withdrawn into the esophagus. The Z-line is appropriately located at the top of the gastric folds and it appears that there is a fairly large caliber Schatzki ring in the distal esophagus just above the Z line. The more proximal esophageal mucosa was normal. The scope was advanced down into the stomach again, the guidewire was advanced through the scope, the scope was withdrawn over the guidewire. Then the #48 and 51-[place]izen [place] Savary dilators were passed over the wire without difficulty. The dilators and the wire were removed. Then, the [employer] upper videoscope was reintroduced through the upper esophageal sphincter and advanced under direct visualization to the descending duodenum. Findings are noted on withdrawal of the scope. The duodenal mucosa appears normal still. Pylorus, normal mucosa. Antrum, normal mucosa except for the biopsy sites that are not bleeding. Body, normal mucosa. Cardia and fundus, normal mucosa. There is some blood from the dilatation that down into the stomach and it [address] [address] PROCEDURE REPORT Name: PRITESH KILPATRICK Room #: 310-P [facility] IN M.R.#: [id number] Admission: 05/25/17 Attend Phys: Josse Arceo DO Discharge: Date of : 55 Report #: [id number] clears readily and there is nothing bleeding in the stomach. The scope was withdrawn into the esophagus. The Schatzki ring appears to be obliterated now that the dilatation has occurred. There is a slight mucosal tear at the level of the Schatzki ring and it was oozing, it has stopped oozing now. The esophageal mucosa above the Schatzki ring level appears intact without any other evidence of any tear from the esophageal dilatation. Good hemostasis was noted. There is no active bleeding at the time of the completion of this examination. The scope was withdrawn. The patient went to the recovery area in stable condition. She tolerated the procedure well. IMPRESSION: 1. Schatzki ring dilated with a #48 and 51-[place]izen [place] Savary dilators as above. 2. Small hiatal hernia. 3. Biopsies taken to rule out Helicobacter pylori. RECOMMENDATIONS: To await the biopsy results. As we do not yet have a cause for her 75-pound unexplained weight loss, I would recommend that she proceed with some type of imaging study of her abdomen is the next test such as CT scan. Her creatinine at this time is 1.0, lipase and liver enzymes are all normal or low, CRP is 17.9, she has a normocytic normochromic anemia of 8.3 with an RDW of 17.6. We will check her B12, folate, and iron levels. Thank you very much once again for allowing me to participate in her care, Dr. Arceo. <ELECTRONICALLY SIGNED> By: Latrice Cross DO 05/29/17 0842 [id number] Latrice Cross DO /nt
[2017-05-25 16:19] VITALS: BP 89/55
[2017-05-25 17:01] LABS: HEMATOCRIT 29.1 % (37.0-47.0); MCH 30.6 pg (26.0-34.0); MCHC 34.4 g/dL (28.0-37.0); PLATELET COUNT 272 thou/uL (150-400); RBC 3.27 mil/uL (4.20-5.00); RDW 16.8 % (10.5-14.5); WBC 8.3 thou/uL (4.0-11.0)
[2017-05-25 17:05] LABS: MANUAL DIFF YES
[2017-05-25 17:06] LABS: URINE BILIRUBIN 3+ (Negative); URINE BLOOD NEGATIVE (Negative); URINE COLOR YELLOW; URINE GLUCOSE-RANDOM* NEGATIVE (Negative); URINE KETONES TRACE (Negative); URINE LEUKOCYTES-REFLEX NEGATIVE (Negative); URINE PROTEIN (DIPSTICK) NEGATIVE (Negative); URINE SPECIFIC GRAVITY >= 1.030 (1.003-1.035)
[2017-05-25 17:07] LABS: ICTOTEST (BILI CONFIRMATORY) Positive (Negative)
[2017-05-25] MEDS ORDERED: PEPCID AC10 MG PO (17:09)
[2017-05-25 17:25] LABS: CALCIUM 8.1 mg/dL (8.5-10.1); CREATININE 1.8 mg/dL (0.6-1.0); POTASSIUM 3.1 mmol/L (3.5-5.1)
[2017-05-25 17:29] LABS: ABSOLUTE NEUTROPHILS 5.6 thou/uL (1.4-8.2); PLATELET ESTIMATE NORMAL; TOTAL CELL COUNT 100
[2017-05-25 17:31] LABS: TOTAL BILIRUBIN 0.8 mg/dL (<0.1-1.0)
[2017-05-25 17:32] LABS: ALBUMIN 2.2 g/dL (3.4-5.0); TOTAL PROTEIN 5.5 g/dL (6.4-8.2)
[2017-05-25 19:54] VITALS: BP 104/59
[2017-05-25 20:20] VITALS: BP 104/60
[2017-05-25 23:43] VITALS: BP 113/53
[2017-05-26] MEDS ORDERED: WELLBUTRIN 100100 MG PO (01:38)
[2017-05-26] MEDS ORDERED: SEROQUEL 25 MG25 M1 PO (01:39)
[2017-05-26] MEDS ORDERED: TRAZODONE HCL50 MG PO (01:41)
[2017-05-26] MEDS ORDERED: XANAX 0.5 MG0.5 MG PO (01:46)
[2017-05-26 04:27] VITALS: BP 122/63
[2017-05-26 07:40] LABS: CALCIUM 7.8 mg/dL (8.5-10.1); CREATININE 1.3 mg/dL (0.6-1.0); MAGNESIUM 1.4 mg/dL (1.8-2.4); POTASSIUM 3.7 mmol/L (3.5-5.1)
[2017-05-26 07:48] VITALS: BP 124/69
[2017-05-26 20:20] VITALS: BP 134/70
[2017-05-27 04:35] VITALS: BP 122/67
[2017-05-27 05:34] LABS: ABSOLUTE NEUTROPHILS 2.7 thou/uL (1.4-8.2); BASOPHILS 0.9 % (0.0-2.0); EOSINOPHILS 1.7 % (0.0-3.0); HEMATOCRIT 23.9 % (37.0-47.0); LYMPHOCYTES 33.1 % (24.0-44.0); MCH 30.2 pg (26.0-34.0); MCHC 33.6 g/dL (28.0-37.0); MCV 89.8 fL (80.0-100.0); MONOCYTES 6.4 % (1.0-8.0); POLYS 57.9 % (36.0-66.0); RBC 2.66 mil/uL (4.20-5.00); RDW 17.1 % (10.5-14.5); WBC 4.6 thou/uL (4.0-11.0)
[2017-05-27 05:38] LABS: PLATELET COUNT 193 thou/uL (150-400)
[2017-05-27 05:39] LABS: MANUAL DIFF NO
[2017-05-27 05:45] LABS: CALCIUM 7.9 mg/dL (8.5-10.1); CREATININE 0.9 mg/dL (0.6-1.0)
[2017-05-27 05:51] LABS: POTASSIUM 2.8 mmol/L (3.5-5.1)
[2017-05-27 07:38] VITALS: BP 137/64
[2017-05-27 15:18] LABS: MAGNESIUM 1.8 mg/dL (1.8-2.4); POTASSIUM 3.3 mmol/L (3.5-5.1)
[2017-05-27 15:39] VITALS: BP 154/82
[2017-05-27 19:45] VITALS: BP 165/89
[2017-05-28 03:45] VITALS: BP 148/91
[2017-05-28 05:29] LABS: HEMATOCRIT 24.6 % (37.0-47.0); HEMOGLOBIN 8.3 gm/dL (12.0-15.0); MCH 30.6 pg (26.0-34.0); MCHC 33.8 g/dL (28.0-37.0); MCV 90.3 fL (80.0-100.0); RBC 2.72 mil/uL (4.20-5.00); RDW 17.6 % (10.5-14.5); WBC 5.4 thou/uL (4.0-11.0)
[2017-05-28 05:37] LABS: CALCIUM 7.7 mg/dL (8.5-10.1)
[2017-05-28 05:38] LABS: POTASSIUM 2.9 mmol/L (3.5-5.1)
[2017-05-28 07:20] VITALS: BP 159/85
[2017-05-28 11:25] LABS: % SATURATION 65 % (20-39); IRON 33 ug/dL (50-170); TIBC 51 ug/dL (250-450); UIBC 18 ug/dL
[2017-05-28 11:45] VITALS: BP 172/92
[2017-05-28 11:54] LABS: FOLIC ACID 1.4 ng/mL (8.6-58.9); TSH 2.046 uIU/mL (0.358-3.740)
[2017-05-28 15:20] VITALS: BP 164/94
[2017-05-28 19:44] VITALS: BP 179/94
[2017-05-29 03:37] VITALS: BP 160/86
[2017-05-29 06:55] LABS: HEMATOCRIT 23.3 % (37.0-47.0); HEMOGLOBIN 7.9 gm/dL (12.0-15.0); MCH 30.7 pg (26.0-34.0); MCHC 34.1 g/dL (28.0-37.0); MCV 89.8 fL (80.0-100.0); RBC 2.59 mil/uL (4.20-5.00); RDW 17.4 % (10.5-14.5); WBC 4.8 thou/uL (4.0-11.0)
[2017-05-29 06:57] LABS: CALCIUM 7.8 mg/dL (8.5-10.1); CREATININE 0.8 mg/dL (0.6-1.0); POTASSIUM 3.4 mmol/L (3.5-5.1)
[2017-05-29 08:00] VITALS: BP 164/87
[2017-05-29 16:00] VITALS: BP 170/108
[2017-05-29 16:03] VITALS: BP 164/87
[2017-05-29 16:23] VITALS: BP 163/94
[2017-05-29 20:30] VITALS: BP 163/95
[2017-05-29 22:37] LABS: MAGNESIUM 1.2 mg/dL (1.8-2.4); POTASSIUM 3.3 mmol/L (3.5-5.1)
[2017-05-30 05:07] VITALS: BP 109/56
[2017-05-30 06:48] LABS: URINE BILIRUBIN NEGATIVE (Negative); URINE BLOOD 3+ (Negative); URINE COLOR OTHER; URINE GLUCOSE-RANDOM* NEGATIVE (Negative); URINE KETONES NEGATIVE (Negative); URINE NITRITE NEGATIVE (Negative); URINE PROTEIN (DIPSTICK) NEGATIVE (Negative); URINE SPECIFIC GRAVITY 1.015 (1.003-1.035); URINE UROBILINOGEN 0.2 E.U./dl (0.2-1.0)
[2017-05-30 07:01] LABS: CASTS None Seen /LPF (None Seen); SQUAMOUS 0-3 Few /LPF (0-3)
[2017-05-30 07:02] LABS: BACTERIA 1-9 Few /HPF (None Seen); CRYSTALS None Seen /LPF (None Seen); URINE RBC >20 Many /HPF (0-2); URINE WBC 6-15 Few /HPF (0-5)
[2017-05-30 07:33] VITALS: BP 126/73
[2017-05-30 15:47] VITALS: BP 149/86
[2017-05-30 19:42] VITALS: BP 153/86
[2017-05-31 03:01] LABS: HEMATOCRIT 21.8 % (37.0-47.0); HEMOGLOBIN 7.4 gm/dL (12.0-15.0); MCH 30.5 pg (26.0-34.0); MCV 89.6 fL (80.0-100.0); RBC 2.43 mil/uL (4.20-5.00); RDW 17.6 % (10.5-14.5); WBC 5.1 thou/uL (4.0-11.0)
[2017-05-31 03:07] LABS: CALCIUM 7.5 mg/dL (8.5-10.1); POTASSIUM 3.3 mmol/L (3.5-5.1)
[2017-05-31 03:58] VITALS: BP 152/75
[2017-05-31 08:00] VITALS: BP 155/91
[2017-05-31 16:00] VITALS: BP 143/67
[2017-05-31 19:47] VITALS: BP 157/94
[2017-06-01 04:38] VITALS: BP 129/68
[2017-06-01 08:55] VITALS: BP 139/75
[2017-06-01 17:41] VITALS: BP 150/79
[2017-06-01 20:40] VITALS: BP 162/85
[2017-06-02 04:30] VITALS: BP 119/68
[2017-06-02 07:34] VITALS: BP 138/77
[2017-06-02] MEDS ORDERED: PANTOPRAZOLE SO40 M1 PO (12:44)
[2017-06-02] MEDS ORDERED: PERCOCET PO (12:49)
[2017-06-02 15:11] VITALS: BP 127/78
[2017-06-02 20:00] VITALS: BP 172/88
[2017-06-03] VITALS (9 sets, daily range): BP systolic 129–181; BP diastolic 74–103
[2017-06-03 06:32] LABS: HEMOGLOBIN 6.9 gm/dL (12.0-15.0); MCH 31.1 pg (26.0-34.0); MCHC 34.6 g/dL (28.0-37.0); MCV 89.7 fL (80.0-100.0); RBC 2.23 mil/uL (4.20-5.00); RDW 17.8 % (10.5-14.5); WBC 4.1 thou/uL (4.0-11.0)
[2017-06-03 06:47] LABS: CALCIUM 8.1 mg/dL (8.5-10.1); POTASSIUM 3.4 mmol/L (3.5-5.1)
[2017-06-04] VITALS: BP 158/94
[2017-06-04 03:53] VITALS: BP 144/90
[2017-06-04 05:50] LABS: ABSOLUTE NEUTROPHILS 3.5 thou/uL (1.4-8.2); BASOPHILS 0.3 % (0.0-2.0); EOSINOPHILS 4.2 % (0.0-3.0); HEMATOCRIT 28.9 % (37.0-47.0); MCHC 35.2 g/dL (28.0-37.0); MCV 88.2 fL (80.0-100.0); MONOCYTES 6.4 % (1.0-8.0); PLATELET COUNT 233 thou/uL (150-400); POLYS 61.1 % (36.0-66.0); RBC 3.28 mil/uL (4.20-5.00); RDW 17.3 % (10.5-14.5); WBC 5.7 thou/uL (4.0-11.0)
[2017-06-04 05:52] LABS: HEMOGLOBIN 10.2 gm/dL (12.0-15.0)
[2017-06-04 05:53] LABS: MANUAL DIFF NO
[2017-06-04 06:01] LABS: CALCIUM 8.3 mg/dL (8.5-10.1); CREATININE 0.8 mg/dL (0.6-1.0); POTASSIUM 3.4 mmol/L (3.5-5.1)
[2017-06-04 08:00] VITALS: BP 154/92
[2017-06-04 11:25] VITALS: BP 128/92
[2017-06-04] MEDS ORDERED: CLOPIDOGREL75 MG PO (12:52)
[2017-06-04 15:56] VITALS: BP 140/93
[2017-06-04 18:10] LABS: URINE BILIRUBIN NEGATIVE (Negative); URINE BLOOD 1+ (Negative); URINE COLOR YELLOW; URINE GLUCOSE-RANDOM* NEGATIVE (Negative); URINE KETONES NEGATIVE (Negative); URINE LEUKOCYTES-REFLEX 3+ (Negative); URINE PROTEIN (DIPSTICK) NEGATIVE (Negative)
[2017-06-04 18:13] LABS: CASTS None Seen /LPF (None Seen); CRYSTALS None Seen /LPF (None Seen); SQUAMOUS 0-3 Few /LPF (0-3); URINE RBC None Seen /HPF (0-2); URINE WBC-REFLEX >25 Many /HPF (0-5)
[2017-06-04 20:52] VITALS: BP 149/89
[2017-06-05 04:17] VITALS: BP 139/82
[2017-06-05 08:00] VITALS: BP 140/83
[2017-06-05 10:34] LABS: ABSOLUTE NEUTROPHILS 4.6 thou/uL (1.4-8.2); BASOPHILS 0.5 % (0.0-2.0); EOSINOPHILS 2.4 % (0.0-3.0); HEMATOCRIT 31.1 % (37.0-47.0); HEMOGLOBIN 10.8 gm/dL (12.0-15.0); LYMPHOCYTES 23.5 % (24.0-44.0); MCH 30.8 pg (26.0-34.0); MCHC 34.7 g/dL (28.0-37.0); MCV 88.7 fL (80.0-100.0); MONOCYTES 4.1 % (1.0-8.0); PLATELET COUNT 240 thou/uL (150-400); POLYS 69.5 % (36.0-66.0); RDW 16.9 % (10.5-14.5); WBC 6.7 thou/uL (4.0-11.0)
[2017-06-05 10:37] LABS: MANUAL DIFF NO
[2017-06-05 10:55] LABS: CALCIUM 8.9 mg/dL (8.5-10.1); CREATININE 1.1 mg/dL (0.6-1.0); POTASSIUM 3.1 mmol/L (3.5-5.1)
[2017-06-05 10:56] LABS: MAGNESIUM 0.9 mg/dL (1.8-2.4)
[2017-06-05 16:00] VITALS: BP 173/93
[2017-06-05 19:30] VITALS: BP 175/100
[2017-06-05 23:41] LABS: MAGNESIUM 1.5 mg/dL (1.8-2.4); POTASSIUM 3.2 mmol/L (3.5-5.1)
[2017-06-06 00:20] VITALS: BP 128/82
[2017-06-06 03:45] VITALS: BP 124/73
[2017-06-06 04:50] LABS: ABSOLUTE NEUTROPHILS 2.3 thou/uL (1.4-8.2); BASOPHILS 0.4 % (0.0-2.0); EOSINOPHILS 4.1 % (0.0-3.0); HEMATOCRIT 25.1 % (37.0-47.0); MCH 30.6 pg (26.0-34.0); MCHC 34.4 g/dL (28.0-37.0); MCV 89.1 fL (80.0-100.0); MONOCYTES 8.9 % (1.0-8.0); PLATELET COUNT 193 thou/uL (150-400); POLYS 59.6 % (36.0-66.0); RBC 2.82 mil/uL (4.20-5.00); RDW 17.2 % (10.5-14.5); WBC 3.9 thou/uL (4.0-11.0)
[2017-06-06 04:52] LABS: HEMOGLOBIN 8.6 gm/dL (12.0-15.0)
[2017-06-06 04:53] LABS: MANUAL DIFF NO
[2017-06-06 04:56] LABS: CALCIUM 8.2 mg/dL (8.5-10.1); CREATININE 0.9 mg/dL (0.6-1.0); POTASSIUM 3.7 mmol/L (3.5-5.1)
[2017-06-06 08:14] VITALS: BP 112/62
[2017-06-06 15:56] VITALS: BP 142/86
[2017-06-06 16:27] VITALS: BP 142/86
[2017-06-06 19:20] VITALS: BP 147/80
[2017-06-07 04:45] VITALS: BP 137/83
[2017-06-07 06:01] LABS: HEMATOCRIT 25.5 % (37.0-47.0); HEMOGLOBIN 8.6 gm/dL (12.0-15.0); MCH 30.6 pg (26.0-34.0); MCHC 33.8 g/dL (28.0-37.0); MCV 90.4 fL (80.0-100.0); RBC 2.82 mil/uL (4.20-5.00); RDW 17.2 % (10.5-14.5); WBC 4.5 thou/uL (4.0-11.0)
[2017-06-07 08:42] VITALS: BP 145/88
[2017-06-07 16:07] VITALS: BP 107/66
[2017-06-07 21:20] VITALS: BP 114/95
[2017-06-07 22:20] VITALS: BP 111/61
[2017-06-08 00:18] LABS: ABSOLUTE NEUTROPHILS 3.1 thou/uL (1.4-8.2); BASOPHILS 0.4 % (0.0-2.0); EOSINOPHILS 4.6 % (0.0-3.0); HEMATOCRIT 26.4 % (37.0-47.0); LYMPHOCYTES 26.7 % (24.0-44.0); MCH 30.5 pg (26.0-34.0); MCHC 34.1 g/dL (28.0-37.0); MCV 89.4 fL (80.0-100.0); MONOCYTES 6.9 % (1.0-8.0); PLATELET COUNT 224 thou/uL (150-400); POLYS 61.4 % (36.0-66.0); RBC 2.96 mil/uL (4.20-5.00); RDW 16.7 % (10.5-14.5)
[2017-06-08 00:20] LABS: MANUAL DIFF NO
[2017-06-08 00:28] LABS: CALCIUM 8.5 mg/dL (8.5-10.1); CREATININE 1.1 mg/dL (0.6-1.0); MAGNESIUM 1.1 mg/dL (1.8-2.4); POTASSIUM 3.3 mmol/L (3.5-5.1)
[2017-06-08 04:47] VITALS: BP 161/94
[2017-06-08 07:33] VITALS: BP 167/87
[2017-06-08 12:58] LABS: MAGNESIUM 1.2 mg/dL (1.8-2.4); POTASSIUM 3.4 mmol/L (3.5-5.1)
[2017-06-08 15:22] VITALS: BP 160/91
[2017-06-08 19:23] LABS: MAGNESIUM 1.3 mg/dL (1.8-2.4); POTASSIUM 3.4 mmol/L (3.5-5.1)
[2017-06-08 19:32] VITALS: BP 156/82
[2017-06-09 03:27] VITALS: BP 106/61
[2017-06-09 04:00] LABS: MAGNESIUM 3.1 mg/dL (1.8-2.4); POTASSIUM 3.7 mmol/L (3.5-5.1)
[2017-06-09 07:46] VITALS: BP 130/78
[2017-06-09 13:38] VITALS: BP 133/73
[2017-06-09 16:05] VITALS: BP 128/83
[2017-06-09 20:10] VITALS: BP 145/77
[2017-06-10 04:20] VITALS: BP 130/71
[2017-06-10 08:00] VITALS: BP 136/85
[2017-06-10 10:46] VITALS: BP 164/87
== END 2017-06-10 14:20 | disposition home health service (06) | DRG 356 ==
LOC: ER 16:18 → 3N 19:34 → EROBS 19:34 → 3N 20:16 → ENTRNSPT 06-10 14:16 → EDTRNSPTSTS 06-10 14:18 → 3N 06-10 14:20
PROVIDERS: Emergency Medicine; Family Medicine; Internal Medicine Gastroenterology; Nurse Practitioner Acute Care; Nurse Practitioner Family; Nurse Practitioner Gerontology; Specialist
PROC: 05H533Z Insertion of Infusion Device into Right Subclavian Vein, Percutaneous Approach (ICD-10-PCS; 2017-05-27)
PROC: 0DB68ZX Excision of Stomach, Via Natural or Artificial Opening Endoscopic, Diagnostic (ICD-10-PCS; principal; 2017-05-28)
PROC: 0D758ZZ Dilation of Esophagus, Via Natural or Artificial Opening Endoscopic (ICD-10-PCS; principal; 2017-05-28)
PROC: 04753DZ Dilation of Superior Mesenteric Artery with Intraluminal Device, Percutaneous Approach (ICD-10-PCS; 2017-06-03)
PROC: B41D1ZZ Fluoroscopy of Aorta and Bilateral Lower Extremity Arteries using Low Osmolar Contrast (ICD-10-PCS; 2017-06-03)
PROC: B4181ZZ Fluoroscopy of Bilateral Renal Arteries using Low Osmolar Contrast (ICD-10-PCS; 2017-06-03)
PROC: 30243N1 Transfusion of Nonautologous Red Blood Cells into Central Vein, Percutaneous Approach (ICD-10-PCS; 2017-06-03)
DX: K22.2 Esophageal obstruction (principal); E43 Unspecified severe protein-calorie malnutrition; N17.9 Acute kidney failure, unspecified; N39.0 Urinary tract infection, site not specified; K55.1 Chronic vascular disorders of intestine; I73.9 Peripheral vascular disease, unspecified; M19.90 Unspecified osteoarthritis, unspecified site; I10 Essential (primary) hypertension; K21.9 Gastro-esophageal reflux disease without esophagitis; J45.909 Unspecified asthma, uncomplicated; E87.6 Hypokalemia; K44.9 Diaphragmatic hernia without obstruction or gangrene; I95.9 Hypotension, unspecified; E83.42 Hypomagnesemia; R13.10 Dysphagia, unspecified; D64.9 Anemia, unspecified; Z90.49 Acquired absence of other specified parts of digestive tract; Z87.81 Personal history of (healed) traumatic fracture; Z79.899 Other long term (current) drug therapy; Z88.0 Allergy status to penicillin; Z88.1 Allergy status to other antibiotic agents; Z91.030 Bee allergy status; Z68.23 Body mass index [BMI] 23.0-23.9, adult; Z82.49 Family history of ischemic heart disease and other diseases of the circulatory system; Z80.0 Family history of malignant neoplasm of digestive organs
CPT/HCPCS: 10094; 27001; 62110; 62900; 70005

== ENCOUNTER 2018-02-23 14:39 | Inpatient (IN) | payer OTHER, BC ==
[~2018-02-23] VITALS: Ht 167.6 cm; Wt 63.0 kg
[~2018-02-23 14:39] MED LIST changes: +CLOPIDOGREL75 MG PO; +CRESTOR5 MG PO; +KEFLEX500 M1 PO; +PANTOPRAZOLE SO40 M1 PO; +PEPCID AC10 MG PO; +PERCOCET 10-321 EACH PO; +PERCOCET PO; +SEROQUEL 25 MG25 M1 PO; +TRAZODONE HCL50 MG PO; +WELLBUTRIN 100100 MG PO; +XANAX 0.5 MG0.5 MG PO
[2018-02-23 15:02] VITALS: BP 161/104
[2018-02-23 15:07] LABS: URINE BILIRUBIN NEGATIVE (Negative); URINE BLOOD 3+ (Negative); URINE CLARITY CLEAR; URINE COLOR YELLOW; URINE GLUCOSE-RANDOM* NEGATIVE (Negative); URINE KETONES NEGATIVE (Negative); URINE NITRITE-REFLEX NEGATIVE (Negative); URINE PROTEIN (DIPSTICK) NEGATIVE (Negative); URINE UROBILINOGEN 0.2 E.U./dl (0.2-1.0)
[2018-02-23 15:11] LABS: URINE LEUKOCYTES-REFLEX TRACE (Negative)
[2018-02-23 15:19] LABS: SQUAMOUS 0-3 Few /LPF (0-3)
[2018-02-23 15:20] LABS: CASTS None Seen /LPF (None Seen); CRYSTALS None Seen /LPF (None Seen)
[2018-02-23 15:21] LABS: URINE WBC-REFLEX 0-5 Rare /HPF (0-5)
[2018-02-23 15:24] LABS: BACTERIA-REFLEX None Seen /HPF (None Seen)
[2018-02-23 15:48] LABS: ABSOLUTE NEUTROPHILS 3.9 thou/uL (1.4-8.2); BASOPHILS 0.2 % (0.0-2.0); EOSINOPHILS 0.8 % (0.0-3.0); HEMATOCRIT 30.8 % (37.0-47.0); HEMOGLOBIN 10.2 gm/dL (12.0-15.0); LYMPHOCYTES 24.6 % (24.0-44.0); MCH 28.3 pg (26.0-34.0); MCHC 33.2 g/dL (28.0-37.0); MCV 85.3 fL (80.0-100.0); MONOCYTES 5.7 % (1.0-8.0); PLATELET COUNT 319 thou/uL (150-400); POLYS 68.7 % (36.0-66.0); RBC 3.62 mil/uL (4.20-5.00); RDW 14.2 % (10.5-14.5); WBC 5.7 thou/uL (4.0-11.0)
[2018-02-23 16:02] LABS: CALCIUM 9.6 mg/dL (8.5-10.1); CREATININE 1.4 mg/dL (0.6-1.0); POTASSIUM 4.1 mmol/L (3.5-5.1)
[2018-02-23 16:09] LABS: ALBUMIN 3.3 g/dL (3.4-5.0); TOTAL BILIRUBIN 0.7 mg/dL (<0.1-1.0); TOTAL PROTEIN 7.5 g/dL (6.4-8.2)
[2018-02-23 17:40] VITALS: BP 159/88
[2018-02-23 21:20] VITALS: BP 156/94
[2018-02-24 03:31] VITALS: BP 124/74
[2018-02-24 06:07] LABS: HEMATOCRIT 27.4 % (37.0-47.0); MCH 28.5 pg (26.0-34.0); MCHC 32.8 g/dL (28.0-37.0); RBC 3.15 mil/uL (4.20-5.00); RDW 14.2 % (10.5-14.5); WBC 3.7 thou/uL (4.0-11.0)
[2018-02-24 07:28] LABS: CALCIUM 8.9 mg/dL (8.5-10.1); CREATININE 1.3 mg/dL (0.6-1.0); MAGNESIUM 1.8 mg/dL (1.8-2.4); POTASSIUM 4.2 mmol/L (3.5-5.1)
[2018-02-24 08:25] VITALS: BP 134/83
[2018-02-24 16:19] VITALS: BP 155/86
[2018-02-24 19:10] VITALS: BP 135/87
[2018-02-25 04:00] VITALS: BP 109/69
[2018-02-25 08:00] VITALS: BP 120/81
[2018-02-25] MEDS ORDERED: PERCOCET 10-321 EACH PO (09:44)
[2018-02-25] MEDS ORDERED: FLAGYL500 MG PO (09:44)
[2018-02-25] MEDS ORDERED: LEVAQUIN 500 M500 M2 PO (09:44)
[2018-02-25] MEDS ORDERED: MIRALAX17 GM PO (09:45)
[2018-02-25 13:19] VITALS: BP 120/81
== END 2018-02-25 14:28 | disposition home or self-care (01) | DRG 871 ==
LOC: ER 14:39 → EROBS 17:14 → 4W 17:14 → ENTRNSPT 02-25 13:30 → EDTRNSPTSTS 02-25 13:50 → 4W 02-25 14:28
PROVIDERS: Hospitalist; Nurse Practitioner Acute Care; Physician Assistant
PROC: 05HY33Z Insertion of Infusion Device into Upper Vein, Percutaneous Approach (ICD-10-PCS; principal; 2018-02-23)
DX: A41.9 Sepsis, unspecified organism (principal); E43 Unspecified severe protein-calorie malnutrition; K92.2 Gastrointestinal hemorrhage, unspecified; K57.92 Diverticulitis of intestine, part unspecified, without perforation or abscess without bleeding; M19.90 Unspecified osteoarthritis, unspecified site; K21.9 Gastro-esophageal reflux disease without esophagitis; J45.909 Unspecified asthma, uncomplicated; N18.9 Chronic kidney disease, unspecified; E86.0 Dehydration; E83.42 Hypomagnesemia; I12.9 Hypertensive chronic kidney disease with stage 1 through stage 4 chronic kidney disease, or unspecified chronic kidney disease; Z82.49 Family history of ischemic heart disease and other diseases of the circulatory system; Z90.49 Acquired absence of other specified parts of digestive tract; Z88.0 Allergy status to penicillin; Z88.8 Allergy status to other drugs, medicaments and biological substances; Z80.0 Family history of malignant neoplasm of digestive organs; Z86.010 Personal history of colon polyps; Z68.22 Body mass index [BMI] 22.0-22.9, adult
CPT/HCPCS: 10045; 27000

== ENCOUNTER 2018-11-26 17:12 | Inpatient (IN) | payer OTHER, BC ==
[~2018-11-26] VITALS: Ht 167.6 cm; Wt 83.5 kg
[~2018-11-26 17:12] MED LIST changes: +LEVAQUIN 500 M500 M2 PO; +MIRALAX17 GM PO
[2018-11-26 18:24] VITALS: BP 161/89
[2018-11-26 19:03] LABS: ABSOLUTE NEUTROPHILS 7.1 thou/uL (1.4-8.2); BASOPHILS 0.4 % (0.0-2.0); EOSINOPHILS 0.4 % (0.0-3.0); HEMATOCRIT 34.2 % (37.0-47.0); HEMOGLOBIN 11.5 gm/dL (12.0-15.0); LYMPHOCYTES 20.6 % (24.0-44.0); MCH 29.3 pg (26.0-34.0); MCHC 33.7 g/dL (28.0-37.0); MCV 86.8 fL (80.0-100.0); MONOCYTES 4.9 % (1.0-8.0); PLATELET COUNT 268 thou/uL (150-400); POLYS 73.7 % (36.0-66.0); RBC 3.94 mil/uL (4.20-5.00); RDW 16.1 % (10.5-14.5); WBC 9.6 thou/uL (4.0-11.0)
[2018-11-26 19:13] LABS: CALCIUM 9.9 mg/dL (8.5-10.1); CREATININE 1.5 mg/dL (0.6-1.0); POTASSIUM 4.8 mmol/L (3.5-5.1)
[2018-11-26 19:21] LABS: ALBUMIN 3.1 g/dL (3.4-5.0); TOTAL BILIRUBIN 0.7 mg/dL (<0.1-1.0); TOTAL PROTEIN 7.7 g/dL (6.4-8.2)
[2018-11-26 19:47] LABS: URINE BILIRUBIN NEGATIVE (Negative); URINE BLOOD NEGATIVE (Negative); URINE CLARITY CLEAR; URINE COLOR YELLOW; URINE GLUCOSE-RANDOM* NEGATIVE (Negative); URINE KETONES NEGATIVE (Negative); URINE NITRITE-REFLEX NEGATIVE (Negative); URINE PROTEIN (DIPSTICK) NEGATIVE (Negative); URINE SPECIFIC GRAVITY 1.025 (1.005-1.035); URINE UROBILINOGEN 0.2 E.U./dl (0.2-1.0)
[2018-11-26 19:48] LABS: URINE LEUKOCYTES-REFLEX 1+ (Negative)
[2018-11-26 19:57] LABS: CASTS None Seen /LPF (None Seen); CRYSTALS None Seen /LPF (None Seen); SQUAMOUS 0-3 Few /LPF (0-3); URINE RBC None Seen /HPF (0-2); URINE WBC-REFLEX 6-15 Few /HPF (0-5)
[2018-11-26 22:20] VITALS: BP 138/70
[2018-11-26 22:44] VITALS: BP 125/82
[2018-11-27 00:17] VITALS: BP 184/90
[2018-11-27 06:05] VITALS: BP 120/73
[2018-11-27 07:13] LABS: HEMATOCRIT 30.8 % (37.0-47.0); HEMOGLOBIN 10.3 gm/dL (12.0-15.0); MCH 29.3 pg (26.0-34.0); MCHC 33.4 g/dL (28.0-37.0); MCV 87.8 fL (80.0-100.0); RBC 3.51 mil/uL (4.20-5.00); RDW 16.2 % (10.5-14.5); WBC 5.6 thou/uL (4.0-11.0)
[2018-11-27 07:31] LABS: CALCIUM 9.2 mg/dL (8.5-10.1); CREATININE 1.4 mg/dL (0.6-1.0); POTASSIUM 3.9 mmol/L (3.5-5.1)
--- NOTE | 2018-11-27 07:58 | NUR ---
PT ARRIVED TO UNIT APPROX 2200 IN STABLE CONDITION. ADMISSION AND ASSESSMENT COMPLETED. PT A&Ox4, AMBULATES x1 ASSIST OR WITH A WALKER, CALLS APPROPRIATELY FOR ASSISTANCE. C/O ABD IN THE LLQ RADIATING SLIGHTLY TO MID LOWER ABD. C/O MILD NAUSEA. DENIES SOB. IV FLUIDS AND ABX INFUSING. GAVE PAIN AND NAUSEA MEDS ONCE OVERNIGHT. NO OTHER CONCERNS, SHIFT REPORT GIVEN AT 0700.
--- NOTE | 2018-11-27 09:19 | NUR ---
A&0X4, AMB AT HOME W/CANE OR WALKER FOR SUPPORT WHEN WEAK. C/O ABD MID TO LLQ X 2 WEEKS, INTERMITTENTLY AND WORSENING. RA, INGESTING LIQUIDS. CALL LIGHT WITHIN REACH, ENCOURAGED HER TO CALL FOR ANY NEEDS
[2018-11-27 20:00] VITALS: BP 121/62
[2018-11-28 04:30] VITALS: BP 152/64
--- NOTE | 2018-11-28 08:29 | NUR ---
ASSUMED CARE AT 1900, ASSESSMENT COMPLETED. PT REPORTS MODERATE PAIN IN LLQ OF ABD WITH MILD NAUSEA. GAVE PAIN AND NAUSEA MEDS x2 OVERNIGHT, NO VOMITING NOTED, TOLERATING DIET. UP STANDBY ASSIST TO BSC, URINATING WELL. IV FLUIDS AND ABX INFUSING. NO OTHER CONCERNS, SHIFT REPORT GIVEN AT 0700.
[2018-11-28 08:44] VITALS: BP 125/72
[2018-11-28 18:26] VITALS: BP 136/54
--- NOTE | 2018-11-28 18:30 | NUR ---
PT ASSESSED THIS AM. CONTINUES TO HAVE ABD PAINS. BACKED OFF ON SOLID FOODS AND TAKING ONLY CLEARS NOW. DR. PIMENTEL IN THIS AFTERNOON AND DISCUSSED SURGERY W/ PT AND SHE IS CONSIDERING IT.
[2018-11-28 21:31] VITALS: BP 158/74
--- NOTE | 2018-11-29 02:54 | NUR ---
PT CONTINUES ON IV ABTS. GETTING IV MORPHINE FOR PAIN WITH SOME RELIEF. AFEBRILE. UP AD MAURICIO. NO FURTHER CONCERNS.
[2018-11-29 05:01] VITALS: BP 143/73
[2018-11-29 07:38] VITALS: BP 130/69
--- NOTE | 2018-11-29 14:04 | NUR ---
INITIAL ASSESSMENT: Pt evaluated for d/c planning needs. Reviewed chart and spoke with nurse and pt's [id number]. Pt is alert and oriented. Pt lives alone in house and was independent with ADL's prior to admission to the hospital. Pt remains active in the community and is still driving. Pt has walker and cane at home, and has been on service with [facility] in the past. Pt plans on returning home on d/c from hospital. WIll remain available to assist as needed.
--- NOTE | 2018-11-29 14:38 | NUR ---
AAOX3 VERY PLESANT AND COOPERATIVE. IV PATENT WITHOUT ERYTHEMA OR EDEMA. REPORTS PAIN IS BETTER THAN THE LAST COUPLE OF HOURS. POOR APPETITE. UP TO BED SIDE COMMODE WITHOUT ASSISTANCE.
[2018-11-29 16:58] VITALS: BP 172/92
--- NOTE | 2018-11-29 18:05 | NUR ---
PATIENT TRANSFERRED TO UNIT FROM #432 TO ROOM #221. PATIENT ORIENTED TO UNIT. PATIENT USED THE BEDSIDE COMMODE AND SETTLED IN BED. CALL LIGHT AND BELONGINGS WITHIN REACH.
[2018-11-29 19:19] VITALS: BP 154/80
--- NOTE | 2018-11-30 05:39 | NUR ---
PATIENT ALERT AND ORIENTED X4. C/O PAIN AND NAUSEA, MED GIVEN WITN PARTIAL RELIEF. NO VOMITING NITED THIS SHIFT. UP TO BSC. SLEPT MOST OF NIGHT.
[2018-11-30 07:54] VITALS: BP 147/85
--- NOTE | 2018-11-30 07:59 | NUR ---
ASSUMED PT CARE AT 0700. ASSESSMENT COMPLETED AND IS CHARTED. VSS. PT AWAKE, ALERT/ORIENTED X4. REPORTS PAIN RATED 7/10 IN HER LOWER LEFT QUADRANT SHE DESCRIBES SHARP ACHING. DENIES NAUSEA. WILL CONTINUE WITH PAIN MEDICATION EVERY 4 HOURS WITH NAUSEA MEDICATION. WILL CONTINUE WITH CURRENT CARE.
--- NOTE | 2018-11-30 14:24 | NUR ---
SW reviewed chart and spoke with nursing and attending physician. Pt was [facility] to [facility] from and is progressing towards goals for discharge. Plan is for pt to discharge home when medically stable. Awaiting input from therapy regarding need for home health services. [facility] is following to assist as needed with discharge planning.
--- NOTE | 2018-11-30 15:59 | NUR ---
PT DOING FAIR THIS SHIFT. CONTINUES TO HAVE PAIN TO LEFT LOWER QUADRANT USUALLY RATED 6-7. MORPHINE HELPS FOR A SHORT TIME. PT WORKED WITH PT TODAY BUT REPORTED SHE FELT DIZZY. WILL ADMINISTER NEW MEDICATION ORDERED BY GI . WILL CONTINUE WITH CURRENT CARE.
[2018-11-30 20:26] VITALS: BP 148/74
--- NOTE | 2018-12-01 04:33 | NUR ---
Patient remains A&Ox4; Swallows meds whole w/o difficulty. Remains cont. B&B. Remains on IVABT/Diverticulitis; no adverse reactions noted. L Hand/thumb SL noted/infusing ABT/flushing w/o difficulty. Appetite remains poor. Patient denies pain or discomfort, at this time. No s/s of acute distress noted. Patient in bed w/ call light/desired belongings within reach. Po fluids encouraged. Will continue to monitor.
[2018-12-01 06:03] LABS: HEMATOCRIT 29.7 % (37.0-47.0); HEMOGLOBIN 9.9 gm/dL (12.0-15.0); MCH 29.2 pg (26.0-34.0); MCHC 33.2 g/dL (28.0-37.0); RBC 3.37 mil/uL (4.20-5.00); RDW 15.7 % (10.5-14.5); WBC 5.8 thou/uL (4.0-11.0)
[2018-12-01 07:12] VITALS: BP 141/74
--- NOTE | 2018-12-01 10:54 | NUR ---
ASSUMED CARE OF PATIENT THIS MORNING. PATIENT IS A&OX4. SHE IS UP W/ SBA TO BS. PATIENT HAD SOME N/V THIS MORNING. SHE WAS GIVEN ZOFRAN IV PUSH WITH SOME RELIEF. SHE ALSO RECEIVED OXYCODONE FOR PAIN THIS MORNING, NO RELIEF OF PAIN. NO ABNORMAL FINDINGS UPON ASSESSMENT. PATIENT WILL HAVE A CT OF THE ABDOMEN W/CONTRAST FOR DIVERTICULITIS SOMETIME TODAY. SHE IS CURRENTLY LYING IN BED WITH CALL LIGHT WITHIN REACH. PATIENT CALLS OUT APPROPRIATELY FOR ASSISTANCE.
--- NOTE | 2018-12-01 13:02 | NUR ---
SW reviewed chart and spoke with nursing and attending physician. Pt is slowly progressing towards goals for discharge. Pt currently leaving the unit to have a CT scan done. Discharge plan is for pt to return home when medically stable. SW is following to assist as needed with discharge planning.
[2018-12-01 20:00] VITALS: BP 150/97
--- NOTE | 2018-12-02 06:36 | NUR ---
Patient remains A&Ox4; Swallows meds whole w/o difficulty. Remains cont. B&B; Needs stand by asst x 1 for tranfers. Utilizes the BSC. Remains on IVABT/Diverticulitis; no adverse reactions noted. L hand/thumb SL infusing ABT/flushed w/o difficulty; no blood return noted. N/V x 1; Zofran IV push given/effective. Patient denies pain or discomfort, at this time. No s/s pf acute distress noted. PO fluids encouraged. Patient in bed w/ call light/desired belongings within reach. Will continue to monitor.
[2018-12-02 07:13] VITALS: BP 128/71
--- NOTE | 2018-12-02 12:14 | NUR ---
SW reviewed chart and spoke with nursing attending physician. ID consulted today regarding need for possible new IV abx. Pt with continued abdominal pain. Plan is for pt to return home when medically stable. [facility] is following to assist as needed with discharge planning.
--- NOTE | 2018-12-02 13:51 | NUR ---
ASSUMED CARE OF PATIENT THIS MORNING. PATIENT IS A&OX4. SHE GETS UP WITH MINIMUM ASSIST TO THE BSC. SHE HAS COMPLAINED OF PAIN 7/10 AND RECIEVED OXYCODONE WITH PARTIAL PAIN RELIEF. PATIENT ALSO RECEIVED ZOFRAN TODAY DUE TO N/V WHICH SOON SUBSIDED AFTER MEDICATION WAS GIVEN. PATIENT HAS NOT HAD MUCH ACTIVITY TODAY AND WILL BE RECEIVING THERAPY THIS AFTERNOON. PATIENTS Q4H PRN MORPHINE IV PUSH WAS CHANGED TO DILAUDID Q4H PRN. SINCE SHE WAS COMPLAINING OF JERKY ARM AND LEG MOVEMENTS, A POSSIBLE SIDE EFFECT TO MORPHINE. INFECTIOUS DISEASE PHYSICIAN CHANGED PATIENTS IV ANTIBIOTIC FLAGYL AND CIPRO TO MEROPENEM. PATIENT IS CURRENTLY LYING IN BED WITH CALL LIGHT WITHIN REACH.
--- NOTE | 2018-12-02 16:51 | NUR ---
CONSULTED TO PLACE A PIV, PATIENT HAS HAD MULTIPLE PIV LINES INFILTRATE. SPOKE TO THE PATIENT ABOUT A MIDLINE ACCESS AND SHE AGREED. THE PROCEDURE WELL RISK AND BENIFITS DISCUSSED AND SHE VERBALIZED UNDERSTANDING. THE RIGHT UPPER ARM BASILIC WAS WIDLEY PATENT. A #4F POWER MIDLINE WAS PLACED PER HOSPITAL POLICY. LINE WAS TRIMMED TO 15CM AND ADVANCED WITHOUT DIFFICULTY. LINE SECURED AND RELEASED FOR USE
[2018-12-02 18:50] VITALS: BP 174/87
--- NOTE | 2018-12-03 05:10 | NUR ---
ASSUMED CARE OF PATIENT AT 1900. VSS. ASSESSMENT COMPLETED AT 2039 AND IS DOCUMENTED. PT UP TO BSC AD MAURICIO SEVERAL TIMES THROUGHOUT THE NIGHT. RIGHT UPPER ARM MIDLINE PATENT WITH GOOD BLOOD RETURN. IV ABT INFUSED WITHOUT COMPLICATION. PT DENIED N/V THIS SHIFT. PT CURRENTLY SLEEPING SOUNDLY IN BED IN NO ACUTE DISTRESS. CALL LIGHT WITHIN REACH. BED LOCKED AND IN LOWEST POSTION. WCTM.
--- NOTE | 2018-12-03 08:14 | HC ---
[facility] [place] [address] CONSULTATION Name: PRITESH KILPATRICK Room #: 221-P ADM IN M.R.#: [id number] Admission: 11/26/18 ������������������ Attend Phys: Hubert Solomon MD Discharge: ������������������ Date of : 55 Report #: [id number] THIS REPORT FOR: //name// CC: Hubert Lemon DATE OF SERVICE: 12/02/2018 INFECTIOUS DISEASE CONSULTATION ATTENDING PHYSICIAN: Dr. Raygoza REASON FOR CONSULTATION: Antibiotic management. Nausea, question secondary to metronidazole. Jerking of right upper extremity, question secondary to Cipro. HISTORY OF PRESENT ILLNESS: The patient is a 63-year-old white woman known to me from previous hospitalizations, admitted with abdominal pain, diagnosed to have diverticulitis. A repeat CT scan of abdomen and pelvis yesterday revealed persistent thickening of the wall of the sigmoid colon compatible with colitis more so than diverticulitis. The patient is known to have previous episode of diverticulitis and also known to have superior mesenteric artery stent in. The patient relates she has been nauseated and vomited twice since yesterday. She also reports she is afraid she might be having a stroke since she is having jerking movements of right upper extremity that wakes her up at night time. DRUG ALLERGIES: ANAPHYLACTIC REACTION TO PENICILLIN, has tolerated Rocephin before. ALSO ALLERGIC INTOLERANT TO DOXYCYCLINE AND OF COURSE SHE IS ALLERGIC TO BEE STINGS. ADVERSE REACTIONS TO BENICAR. MEDICATIONS: Currently on treatment with Flagyl 500 IV q. 8 hours, ciprofloxacin 400 mg IV every 12 hours. She is also on treatment with hydromorphone, ____, quetiapine fumarate, trazodone, oxycodone plus acetaminophen p.r.n., bupropion XL, pantoprazole, alprazolam, p.r.n. magnesium oxide, p.r.n. acetaminophen, p.r.n. ondansetron. SOCIAL HISTORY: See H and P, old records. FAMILY HISTORY: See H and P, old records. PAST MEDICAL HISTORY: Appendectomy. Cholecystectomy, open. C-sections. 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 Colonic diverticulitis, diverticulosis. Gastroesophageal reflux. Right arm fracture, rheumatic heart disease as a child. Previous episode of shingles and H. pylori infection. REVIEW OF SYSTEMS: As above and see H and P. [address] [address] CONSULTATION Name: PRITESH KILPATRICK Room #: 221-P [facility] IN [facility]#: [id number] Admission: 11/26/18 ������������������ Attend Phys: Hubert Solomon MD Discharge: ������������������ Date of : 55 Report #: [id number] PHYSICAL EXAMINATION: GENERAL: Well developed, not toxic looking woman. VITAL SIGNS: Temperature maximum 99.8, pulse 73, respirations 18, BP 128/71. HEENMT: Head normocephalic, atraumatic. Pupils reactive. Mouth: Upper and lower plates. Pharynx normal. NECK: Supple, no thyromegaly. BREASTS: Deferred. LUNGS: Clear to auscultation. HEART: S1, S2. No gallop or murmur. ABDOMEN: Tender left lower abdominal quadrant over the sigmoid colon. PELVIC AND RECTAL: Deferred. EXTREMITIES: No clubbing, cyanosis. NEUROLOGIC: Grossly within normal limits. LABORATORY DATA: Sodium 139, potassium 3.9, BUN 19, creatinine 1.4. WBC 5800, hemoglobin 9.9 g/dL, platelets 220,000. ESR 8 mm per hour. MICROBIOLOGY DATA: Negative. RADIOLOGY EVALUATION: CT scan of the abdomen and pelvis revealed status post cholecystectomy, appendectomy and colonic diverticulitis versus sigmoid colitis with thickening of the gallardo as well as previous stenting of superior mesenteric artery and dense calcification involving the celiac axis and both renal artery. ASSESSMENT: 1. Possible diverticulitis versus sigmoid colon colitis. 2. Suspect ischemic bowel disease. 3. Status post superior mesenteric artery stenting due to stenosis. 4. Nausea, question secondary to metronidazole. 5. Neurological side effects from ciprofloxacin - jerking of right upper extremity question pauly question pauly. 6. PENICILLIN ALLERGY ANAPHYLAXIS and tolerance to Rocephin. SUGGESTIONS: Recommend discontinue metronidazole and ciprofloxacin in view of both side effects, and trial of meropenem 500 IV every 8 hours. Repeat ESR and CRP and if those are negative, I may start suspecting that we are not dealing with infection, but ischemic bowel disease. Dr. Raygoza, thank you for requesting my suggestions. ��������������������������������������������� <ELECTRONICALLY SIGNED> ���������������������������������������� By: Judah Rice MD ��������������������������������������������� 12/03/18 0814 [id number] Judah Rice MD /nt
[2018-12-03 08:25] VITALS: BP 162/92
[2018-12-03 08:52] LABS: ABSOLUTE NEUTROPHILS 5.2 thou/uL (1.4-8.2); BASOPHILS 0.5 % (0.0-2.0); EOSINOPHILS 0.9 % (0.0-3.0); HEMATOCRIT 33.2 % (37.0-47.0); LYMPHOCYTES 19.2 % (24.0-44.0); MCH 28.6 pg (26.0-34.0); MCHC 33.1 g/dL (28.0-37.0); MCV 86.6 fL (80.0-100.0); MONOCYTES 5.5 % (1.0-8.0); PLATELET COUNT 281 thou/uL (150-400); POLYS 73.9 % (36.0-66.0); RBC 3.84 mil/uL (4.20-5.00); RDW 15.6 % (10.5-14.5); WBC 7.1 thou/uL (4.0-11.0)
--- NOTE | 2018-12-03 08:57 | NUR ---
ADM ZOFRAN 4MG IV FOR NAUSEA. PATIENT HAS NAUSEA WITHOUT VOMITING. REFUSING BREAKFAST AND PO TIMED MEDS AT THIS TIME.
--- NOTE | 2018-12-03 09:00 | NUR ---
PATIENT STATED PAIN IS 7 ON 1-10 SCALE TO LOWER ABD, FEELS LIKE A GRABBING FEELING. DENIED PASSING GAS. HYPOACTIVE BS. APPETITE LOW. HAS TIMED PO MEDICATION FOR PAIN AND PRN.
[2018-12-03 09:05] LABS: CREATININE 1.3 mg/dL (0.6-1.0); POTASSIUM 3.5 mmol/L (3.5-5.1)
--- NOTE | 2018-12-03 12:22 | NUR ---
SW reviewed chart and spoke with nursing and attending physician. Pt is slowly progressing towards goals for discharge. Pt started on IV meropenem. Pt with abdominal pain and not wanting to get out of bed. SW attempted to meet with pt at bedside. Pt sleeping soundly during time of visit. Plan is for pt to d/c home when medically stable. SW is following to assist as needed with discharge planning.
--- NOTE | 2018-12-03 13:52 | NUR ---
PATIENT RESTING WITH EYES CLOSED.
--- NOTE | 2018-12-03 15:09 | NUR ---
PATIENT SNORING AT THIS TIME. DID EAT APPLESAUCE FROM BREAKFAST. NO LUNCH AT THIS TIME.
--- NOTE | 2018-12-03 16:46 | NUR ---
PATIENT AWAKE. GAVE HER JELLO, PUDDING, APPLE JUICE, AND GREEN[place]IC ICE. PATIENT COMPLAINS OF BACK PAIN OF 7 ON 1-10 SCALE. ADM DILAUDID 0.25MG IV FOR PAIN. EMPTIED COMMODE HAD X1 URINE AND LOOSE BM.
[2018-12-03 18:47] VITALS: BP 141/69
--- NOTE | 2018-12-04 03:26 | NUR ---
ASSUMED CARE OF PATIENT AT 1899. VSS. ASSESSMENT COMPLETED AT 2104 AND IS DOCUMENTED. PT DENIED N/V THIS SHIFT. C/O LOWER ABDOMINAL PAIN AND LOWER BACK PAIN. PRN DILAUDID GIVEN WITH DESIRED EFFECT ACHIEVED. RIGHT UPPER ARM MIDLINE PATENT WITH POSITIVE BLOOD ASPIRATION. IV ABT INFUSED PER DR ORDER WITHOUT COMPLICATION. PT CURRENTLY SLEEPING SOUNDLY IN BED IN NO ACUTE DISTRESS. CALL LIGHT WITHIN REACH. BED LOCKED AND IN LOWEST POSITION. WCTM.
--- NOTE | 2018-12-04 04:17 | NUR ---
THIS NURSE AGREES WITH ASSESSMENT AND NOTES FROM AUTHORIZATION SPECIALIST.
[2018-12-04 06:39] LABS: HEMATOCRIT 36.3 % (37.0-47.0); HEMOGLOBIN 11.9 gm/dL (12.0-15.0); MCH 28.7 pg (26.0-34.0); MCHC 32.8 g/dL (28.0-37.0); MCV 87.3 fL (80.0-100.0); RBC 4.16 mil/uL (4.20-5.00); RDW 15.9 % (10.5-14.5); WBC 6.7 thou/uL (4.0-11.0)
--- NOTE | 2018-12-04 07:51 | NUR ---
PT IS A&OX4, C/O SLIGHT NAUSEA THIS A.M. WELL PAIN IN LLQ OF ABD AND LOWER BACK, WANTS TO SLEEP, SAID SHE DIDN'T GET MUCH SLEEP LAST NIGHT,AMB INDEPENDENTLY, LAST BM WAS YESTERDAY. ENCOURAGED HER TO CALL FOR ANY NEEDS. PT DESIRES FOR SLIDING GLASS DOOR TO BE KEPT SHUT, PLACED A NOTE FOR ALL TO ACCOMODATE
[2018-12-04 08:15] VITALS: BP 160/98
--- NOTE | 2018-12-04 08:25 | NUR ---
PT IS A&0X4, SLIGHTLY [place], ABLE TO BE D/C'D DEPENDING ON URINATION. IF NO URINE P 8H, BVI AND STRAIGHT CATH. EDUCATED ON D/C PROCESS/TIME. AMB INDEPENDENTLY, SPOUSE AT BEDSIDE. NO C/O PAIN/NAUSEA/URGENCY AT THIS TIME. PT STATES NO OTHER ISSUES W/RETAINING URINE IN PAST. ENCOURAGED ALL TO USE CALL LIGHT FOR ANY NEEDS
--- NOTE | 2018-12-04 15:14 | NUR ---
PT RESTING, RATES PAIN 03/07, THANKS STAFF FOR THE XANAX, HELPED HER 'NOT CARE' THAT SHE FELT MISERABLE. SAID SHE DIDN'T GET ANY SLEEP LAST NIGHT. ENCOURAGED HER TO USE CALL LIGHT FOR ANY NEEDS MONICA AMBULATING TO RESTROOM. SHE ACQUIESCES
[2018-12-04 19:25] VITALS: BP 125/74
--- NOTE | 2018-12-05 04:02 | NUR ---
ASSUMED CARE OF PATIENT AT 1900. VSS. ASSESSMENT COMPLETED AT 2129 AND IS DOCUMENTED. RIGHT UPPER ARM MIDLINE PATENT. IV ABT ADMINISTERED ORDERED WITHOUT COMPLICATION. PT UP TO BSC INDEPENDENTLY. IV AND PO PAIN MEDICATION GIVEN FOR C/O ABD AND BACK PAIN WITH DESIRED EFFECT ACHIEVED. PT CURRENTLY SLEEPING SOUNDLY IN BED IN NO ACUTE DISTRESS. CALL LIGHT WITHIN REACH. BED LOCKED AND IN LOWEST POSITION. WCTM.
--- NOTE | 2018-12-05 05:15 | NUR ---
THIS NURSE AGREES WITH ASSESSMENT AND NOTES FROM COLLAR STITCHER ON THIS PATIENT.
[2018-12-05 08:00] VITALS: BP 127/77
--- NOTE | 2018-12-05 13:23 | NUR ---
AAOX4. CALM, COOPERATIVE. MIDLINE RUE PATENT. DENIES NAUSEA AT THIS TIME. MEROPENUM ORDERED. FREQUENT CHECKS; WILL CONTINUE TO MONITOR.
[2018-12-05 19:46] VITALS: BP 148/82
--- NOTE | 2018-12-06 05:47 | NUR ---
patients cares were assumed at shift change. patient was assessed and meds were passed. patient did sleep most of this shift. hourly rounding was done. patient did apper to be sleep well most of this shft. The bed is in a low and locked position.
--- NOTE | 2018-12-06 10:39 | NUR ---
SW reviewed chart and spoke with nursing. Pt is slowly progressing towards goals for discharge. SW met with pt at bedside. Pt with lights off and requested SW come back at a later time. Pt remains on IV abx. Plan is for pt to discharge home when medically stable. SW is following to assist as needed with discharge planning.
--- NOTE | 2018-12-06 10:43 | NUR ---
ASSUMED PATIENT AND CARES AT 0715, PATIENT IN BED WITH COVERS PULLED OVER HER HEAD, PATIENT PREFERS ROOM WARM DARK AND DOOR CLOSED, A&OX4 WITH C/O PAIN OR DISCOMFORT, MIDLINE TO RUE INTACT AND PATENT SCHEDULED MEROPENEM INFUSING, BSC AT BEDSIDE, UP AD MAURICIO, PERSONAL BELONGINGS AND CALL LIGHT IN REACH, WILL CONTINUE TO MONITOR
[2018-12-06 12:27] LABS: CALCIUM 8.8 mg/dL (8.5-10.1); CREATININE 1.1 mg/dL (0.6-1.0); POTASSIUM 3.7 mmol/L (3.5-5.1)
--- NOTE | 2018-12-06 14:22 | NUR ---
Assess due to length of stay. Admitted with diverticulitis. Intermittent nausea reported by pt, prefers small portions, soft foods. Able to give food preferences. Possible flex sig procedure tomorrow. Fluctating wts. Low nutrition risk.
--- NOTE | 2018-12-06 20:12 | NUR ---
I AGREE WITH NURSING ASSESSMENT DONE BY STEVE/IDANIA.
[2018-12-06 20:14] VITALS: BP 152/72
[2018-12-06 20:25] VITALS: BP 152/72
--- NOTE | 2018-12-07 03:54 | NUR ---
Patient remains A&Ox4; Remains NPO for colonoscope. Remains cont. B&B; ambulates independently w/ steady gait to BSC. Remains on IVABT/Diverticulitis; no adverse reactions noted. SL noted to RAC; infused ABT/flushed w/o difficulty. Patient's ABD soft/nontender and BS+X4. Last BM 12/06/18, per patient. Patient denies pain or discomfort, at this time. No s/s of acute distress noted. Patient asleep in bed w/ call light/desired belongings within reach. Will continue to monitor.
[2018-12-07 08:03] VITALS: BP 158/88
--- NOTE | 2018-12-07 10:16 | NUR ---
EVA reviewed chart and spoke with nursing and attending physician. Pt is scheduled to have flex-sig today. EVA met with pt at bedside to discuss discharge plan and home IV abx. Pt to have flex-sig around 1200 today. EVA provided pt with info regarding $100/week copay. Pt is agreeable with copay. Pt wants to make sure that [facility] and [facility] are in-network with her insurance. Pt provided contact info for [facility] ([facility]) to ensure that providers are in-network. SW contacted [facility] ( ) and spoke with Janice. Per Janice, they do not assist with hospital discharge authorization. They assist with ordering medications/services when pt is in the home. Pt is able to use any HH and Home Infusion providers that are in-network with [facility]. [facility] is able to accept pt. EVA updated [facility] liaison, who will be onsite this afternoon to meet with pt and provide education. Contact info for [facility] and [facility] placed in pt's discharge summary. EVA is following to assist as needed with discharge planning.
[2018-12-07 10:21] VITALS: BP 158/88
--- NOTE | 2018-12-07 16:12 | NUR ---
ASSUMED CARE OF PATIENT THIS MORNING. PATIENT IS A&OX4. SHE IS UP WITH MINIMUM ASSIST WHEN AMBULATING. PATIENT HAS WEAKNESS WHEN AMBULATING AND HAS NOT AMBULATED MUCH TODAY. PATIENT RECENTLY RECEIVED DILAUDID FOR PAIN AND PAIN WILL BE REASSESSED. SHE HAD A BOWEL PREP, TAP WATER ENEMA THIS MORNING FOR A FLEX SIGMOIDOSCOPY. PATIENT TOLERATED PROCEDURE WELL AND 1 BIOPSY WAS TAKEN TO R/O SEGMENTAL CHOLECYSTITIS. ALL MORNING MEDICATIONS WERE HELD SINCE PATIENT WAS NPO FOR PROCEDURE. SHE IS CURRENTLY LYING IN BED WITH CALL LIGHT WITHIN REACH. PATIENT CALLS OUT APPROPRIATELY FOR ASSISTANCE.
[2018-12-07 20:08] VITALS: BP 140/93
[2018-12-07 21:01] VITALS: BP 140/98
--- NOTE | 2018-12-08 04:24 | NUR ---
Patient remains A&Ox4; Swallows meds whole w/o difficulty. Remains cont. B&B; Ambulates independently w/ steady gait. Remains on IVABT/divertuculitis; no adverse reactions noted. RAC midline noted; Infused ABT/flushed w/o difficulty. ABD soft/nontender and BS+x4. Trace edema noted to LLE; Pt. encouraged to elevate ext, as tolerated. Patient has no c/o pain or discomfort, at this time. No s/s of acute distress noted. Patient in bed w/ call light/desired belongings within reach. PO fluids encouraged. Will continue to monitor.
[2018-12-08 07:18] LABS: HEMATOCRIT 33.2 % (37.0-47.0); HEMOGLOBIN 10.9 gm/dL (12.0-15.0); MCHC 32.9 g/dL (28.0-37.0); RBC 3.78 mil/uL (4.20-5.00); RDW 15.5 % (10.5-14.5)
[2018-12-08 07:30] VITALS: BP 146/93
[2018-12-08 07:34] LABS: CREATININE 1.2 mg/dL (0.6-1.0); POTASSIUM 3.8 mmol/L (3.5-5.1)
--- NOTE | 2018-12-08 09:11 | NUR ---
ASSUMED PATIENT AND CARES AT 0715, PATIENT WOKE WITH EYES CLOSED LYING IN BED, COVERS PULLED UP OVER FACE, A&OX4, PAIN 03/07, RECEIVED PRN PAIN MEDICATION AT BEGINNING OF PRIOR SHIFT, PATIENT STATED SHE WOULD LIKE HER PAIN SHOT, MIDLINE TO UPPER RIGHT ARM INTACT WITH MEROPENEM INFUSING, FALL PRECAUTIONS IN PLACE, REMAINS ON CLEAR LIQUID DIET, PERSONAL BELONGINGS AND CALL LIGHT IN REACH, WILL CONTINUE TO MONITOR
--- NOTE | 2018-12-08 12:56 | NUR ---
EVA reviewed chart and spoke with nursing and attending physician. Pt is medically stable for discharge today. [facility] liaison met with pt this morning to provide education on how to administer home IV abx. EVA met with pt and sister in law at bedside. Pt states that she does not feel she is able to manage home IV abx. Pt states she would prefer to go to a SNF. SW provided pt with list of in-network SNFs for review. Pt requests referrals to be sent to [facility]. [facility] does not have beds available. EVA faxed referrals to [facility]. Awaiting call back. Will need insurance auth. EVA updated nursing and attending physician. EVA is follwoing to assist as needed with discharge planning.
--- NOTE | 2018-12-08 16:29 | NUR ---
Assumed care for pt at 11;30. pt c/o pain, addressed with medication. pt worked with PT/OT which she tolerated well. Pt requested to have her diet advanced, obtained order for regular diet. Pt stable throughout shift, expected discharge to SNF tomorrow.
[2018-12-08 20:20] VITALS: BP 162/90
--- NOTE | 2018-12-09 03:57 | NUR ---
ASSUMED CARE OF PATIENT AT 1900. VSS. ASSESSMENT COMPLETED AT 2144 AND IS DOCUMENTED. BLE NON-PITTING EDEMA NOTED. ENCOURAGED TO ELEVATE LEGS. IV ABT INFUSED INTO RIGHT UPPER ARM MIDLINE WITHOUT COMPLICATION. NO ADVERSE REACTION NOTED OR REPORTED. PT TOLERATED WELL. PT UP AD MAURICIO TO BSC WITHOUT INCIDENCE. PRN NORCO AND DILAUDID GIVEN FOR C/O LLQ PAIN WITH DESIRED EFFECT ACHIEVED. PRN ZOFRAN GIVEN FOR C/O NAUSEA WITH RELIEF ACHIEVED. PT CRRENTLY SLEEPING SOUNDLY IN BED IN NO ACUTE DISTRESS. CALL LIGHT WITHIN REACH. BED LOCKED AND IN LOWEST POSITION. WCTM.
[2018-12-09 07:18] VITALS: BP 128/60
--- NOTE | 2018-12-09 08:48 | NUR ---
DISCHARGE PLANNING. [facility] RECOMMENDED AT DISCHARGE. SOBEIDA ROBLES BRANDEIS ANTICIPATING INSURANCE AUTH TODAY. UPDATED THERAPY ASSESSEMENTS FAXED TO [facility] FOR INSURANCE AUTH PROCESS. WILL FACILITATE DISCHARGE ONCE OBTAINED. CHART COPY ORDERED. FOLLOWING TO ASSIST WITH DC NEEDS.
--- NOTE | 2018-12-09 09:54 | NUR ---
EVA reviewed chart and spoke with nursing. Updated PT/OT notes faxed to [facility] for review. Awaiting insurance authorization at this time. EVA is following to assist as needed with discharge planning.
--- NOTE | 2018-12-09 10:14 | NUR ---
ASSUMED CARE OF PATIENT THIS MORNING. PATIENT IS A&OX4. NO COMPLAINTS OF N/V. PATIENT DID COMPLAIN OF SOME GENERALIZED ABDOMINAL PAIN, HYDROCODONE WAS ALREADY GIVEN FOR PAIN, TOO SOON TO GIVE AGAIN Q6H. PATIENT WILL POSSIBLY BE DISCHARGED THIS AFTERNOON TO A NURSING FACILITY. SHE HAS A RIGHT UPPERARM MIDLINE CURRENTLY SALINE LOCKED, MEROPENEM RUNS Q8H AT 80ML/HR. PATIENT IS CURRENTLY LYING IN BED WITH CALL LIGHT WITHIN REACH. CALLS OUT APPROPRIATELY FOR ASSISTANCE.
[2018-12-09] MEDS ORDERED: MEROPENEM 1 GM V1 GM IV (15:05)
--- NOTE | 2018-12-09 18:12 | NUR ---
I AGREE WITH NURSING ASSESSMENT DONE BY SNOW/IDANIA.
--- NOTE | 2018-12-09 18:45 | NUR ---
DANIELLA MIDLINE LEAKING, DISCONTINUED. A NEW LEFT UPPER ARM MIDLINE PLACED PER POLICY. LINE WAS 15CM AND ADVANCED WITHOUT DIFFICULTY
[2018-12-09 19:52] VITALS: BP 133/87
--- NOTE | 2018-12-10 01:53 | NUR ---
Assumed care of pt at 1900. Pt alert and oriented x4. C/o generalized abdominal pain. Prn pain meds administered and pain relief obtained. IV antibiotics administered. Pt likes to take pills in vanilla pudding. Call light within reach. Will continue to monitor and assist with needs as they arise.
[2018-12-10 08:16] VITALS: BP 100/51
--- NOTE | 2018-12-10 08:31 | NUR ---
ASSUMED CARE OF PATIENT THIS MORNING. PATIENT IS A&OX4. SHE COMPLAINS OF ABDOMINAL PAIN 03/07. IT IS TOO SOON FOR ANY ADDITIONAL PAIN MEDICATION TO BE ADMINISTERED. SHE COMPLAINS OF PAIN IN HER LEFT UPPERARM WHERE HER MIDLINE WAS PLACED YESTERDAY. IV TEAM WILL BE CONTACTED. PATIENT WILL BE DISCHARGED TO A NURSING FACILITY ONCE HER INSURANCE AUTHORIZATION GOES THROUGH. PATIENT IS CURRENTLY LYING IN BED WITH CALL LIGHT WITHIN REACH. SHE CALLS OUT APPROPRIATELY FOR NEEDED ASSISTANCE.
--- NOTE | 2018-12-10 11:49 | NUR ---
VASULAR ACCESS CONSULTED TO SEE PT DUE TO PAIN AT THE INSERT SITE OF HER ML THAT WAS REPLACED YESTERDAY ON THE LT ARM. HER PREVIOUS ML HAD BEEN ON THE RT AND INFILTRATED. RECOMMENDED PT HAVE AN NSAID AND WARM PACK TO INSERT SITE AND I ASSESSED 2 HOURS LATER WITH US. THE SITE HAS SOME EDEMA, IS TENDER TO TOUCH, A SMALL HEMATOMA DETECTED AT THE BRACHIAL INSERT SITE WITH US ASSESSMENT, OTHERWISE THE VESSEL WAS COMPRESSIBLE AND WIDELY PATENT. OFFERED TO LOOK FOR ANOTHER ML SITE OR A PIV FOR THE 6 DAYS OF IV ABX AT THE SNF. THE OTHER OPTION WAS TO KEEP WARM PACKS ON IT AND TAKE NSAIDS FOR INFLAMMATION AND SEE IF THE PAIN RESIDES. PT OPTED TO KEEP THE CURRENT ML AND DC WITH IT. THE CM AND RN WERE NOTIFIED OF THE PT'S DECISION.
--- NOTE | 2018-12-10 12:01 | NUR ---
PATIENT DISCHARGED TO [facility]. REPORT CALLED TO FACILITY. DISCHARGE PACKET GIVEN TO [employer] W/ONE PRESCRIPTION FOR MEROPENEM. PATIENT LEFT WITH HER LEFT ARE MIDLINE IV AND IT WILL CONTINUE TO BE MONITORED FOR S/S OF PAIN AND DISCOMFORT THAT THE PATIENT COMPLAINED ABOUT. IV TEAM WAS AWARE AND CAME TO ASSESS THE SITE AND RECOMMENDED TAKING IT OUT IF IT WAS REALLY PAINFUL OR PLACING A PERIPHERAL. IV NURSE TOLD PATIENT THE PAIN COULD BE TEMPORARILY AND CAN BE PAINFUL AT TIMES. THE PATIENT DID NOT WANT THE IV TO BE REMOVED OR ANOTHER ONE WAS PLACED. THE IV TEAM WILL FOLLOW UP IF NEEDED AT THE FACILITY FOR PLACEMENT OF A NEW MIDLINE IF NEEDED. TYLENOL WAS GIVEN FOR THE PAIN AND A WARM BLANKET WAS APPLIED TO THE SITE. THE PATIENT STATED THE WARM BLANKET HELPED MORE THAN THE TYLENOL. BEFORE DISMISSAL FROM THE HOSPITAL THE PATIENT REQUESTED A XANAX AND PAIN MEDICATION WAS GIVEN 1130.
--- NOTE | 2018-12-10 12:07 | PATH ---
[facility] [address] [place] [address] PATHOLOGY RPT PROCEDURE Name: FINESSEPRITESHMercy ROSALES Room #: 221-P ADM IN M.R.#: [id number] ������������������ Admission: 11/26/18 ������������������ Date of : 55 Discharge: Report #: [id number] Path Case #: [id number] [facility] Accession Number: [id number] . 01 Material submitted: . BX OF SGM COLON TO R/O SEGMENTAL COLITIS ASSOCIATED DIVERTICULITIS (SCAD) . 01 Clinical history: . Diverticulitis, rule out: Segmental colitis associated diverticulitis . 02 Diagnosis: Large intestinal mucosa, sigmoid colon to rule out segmental colitis associated with diverticulitis, endoscopic biopsy: - Mild crypt distortion present. - Negative for active cryptitis. - Negative for dysplasia or malignancy. (IUV:popeye; 12/08/2018) MBAlice/12/08/2018 . 02 Comment: Examination shows congested lamina propria with focal mild crypt distortion present. Active cryptitis or crypt abscess formation as well as surface epithelial inflammation are not identified. The provided suspicion for segmental colitis associated with diverticulitis is noted. It is in the differential in addition to active colitis due to infectious etiology, inflammatory bowel disease as well as medication induced colitis. Please correlate clinically. (IUV:capacitor inspector; 12/08/2018) . 02 Electronically signed: . Brie Rodriguez MD, Pathologist NPI- [id number] . 01 Gross description: . The specimen is received in formalin, labeled "Pritesh Soto, BX of sigmoid colon, rule out SCAD", are several anaya pink mucosal fragments measuring 0.5 x 0.5 x 0.2 cm in aggregate, entirely submitted in A1. (SWS; 12/07/2018) SHS/SHS . 02 Pathologist provided ICD-10: K57.32 . 02 CPT . 948689 Specimen Comment: A courtesy copy of this report has been sent to Specimen Comment: [phone], , [phone]. [address] [address] PATHOLOGY RPT PROCEDURE Name: PRITESH SOTO Room #: 221-P [facility] IN M.R.#: [id number] ������������������ Admission: 11/26/18 ������������������ Date of : 55 Discharge: Report #: [id number] Path Case #: [id number] Specimen Comment: Report sent to ,DR STORY / DR CORREIA Specimen Comment: A duplicate report has been generated due to demographic updates. Performed at: [address], [place] [id number] MD Levi Waters MD Phone: [phone] Performed at: [address] [id number] MD Brie Rodriguez MD Phone: [phone]
--- NOTE | 2018-12-10 12:28 | NUR ---
DISCHARGE NOTE: SW received call from Cynthia at [facility], who states they received insurance authorization, and can accept pt today. Human provided auth for nursing care for continued IV abx. [facility] will provide transportation between 7286-8031. Pt s IV replaced by IV team this morning. SW met with pt at bedside to provide update and discuss discharge plan. Pt is aware and in agreement with dc plan. Pt aware of transportation time and requests her sister in law, Jackelyn, be notified of plan. Discharge orders/summary faxed to [facility]. Nursing to call report. No additional SW needs identified at this time, but is available to assist should needs arise.
== END 2018-12-10 12:00 | DRG 392 ==
LOC: ER 17:12 → 4E 20:53 → EROBS 20:53 → 4E 11-27 00:14 → SICU 11-29 16:40
PROVIDERS: Hospitalist; Nurse Practitioner; Nurse Practitioner Family; Physician Assistant; Specialist; Surgery; ADMIT Internal Medicine
PROC: 05HY33Z Insertion of Infusion Device into Upper Vein, Percutaneous Approach (ICD-10-PCS; principal; 2018-12-02)
PROC: 0DBN8ZX Excision of Sigmoid Colon, Via Natural or Artificial Opening Endoscopic, Diagnostic (ICD-10-PCS; 2018-12-07)
DX: K57.32 Diverticulitis of large intestine without perforation or abscess without bleeding (principal); K50.10 Crohn's disease of large intestine without complications; N39.0 Urinary tract infection, site not specified; I10 Essential (primary) hypertension; M19.90 Unspecified osteoarthritis, unspecified site; K21.9 Gastro-esophageal reflux disease without esophagitis; J45.909 Unspecified asthma, uncomplicated; E83.42 Hypomagnesemia; G89.29 Other chronic pain; Z60.2 Problems related to living alone; D64.9 Anemia, unspecified; F41.9 Anxiety disorder, unspecified; K57.30 Diverticulosis of large intestine without perforation or abscess without bleeding; Z90.49 Acquired absence of other specified parts of digestive tract; Z87.81 Personal history of (healed) traumatic fracture; Z88.0 Allergy status to penicillin; Z88.8 Allergy status to other drugs, medicaments and biological substances; Z82.49 Family history of ischemic heart disease and other diseases of the circulatory system; Z85.038 Personal history of other malignant neoplasm of large intestine; Z87.11 Personal history of peptic ulcer disease; Z86.010 Personal history of colon polyps
CPT/HCPCS: 10783; 15002; 27000; 62110; 62900; 70005

== ENCOUNTER 2019-01-18 12:45 | Emergency (ER) | payer OTHER, BC ==
[~2019-01-18] VITALS: Ht 167.6 cm; Wt 84.4 kg
[~2019-01-18 12:45] MED LIST changes: +MEROPENEM 1 GM V1 GM IV
[2019-01-18 13:27] LABS: ABSOLUTE NEUTROPHILS 2.9 thou/uL (1.4-8.2); BASOPHILS 0.4 % (0.0-2.0); EOSINOPHILS 3.8 % (0.0-3.0); HEMATOCRIT 26.3 % (37.0-47.0); HEMOGLOBIN 8.8 gm/dL (12.0-15.0); LYMPHOCYTES 30.9 % (24.0-44.0); MCH 29.5 pg (26.0-34.0); MCHC 33.5 g/dL (28.0-37.0); MCV 88.2 fL (80.0-100.0); MONOCYTES 7.1 % (1.0-8.0); PLATELET COUNT 229 thou/uL (150-400); POLYS 57.8 % (36.0-66.0); RBC 2.99 mil/uL (4.20-5.00); RDW 15.6 % (10.5-14.5)
[2019-01-18 13:38] LABS: PROTIME 10.5 Seconds (9.3-11.4)
[2019-01-18 13:42] LABS: CALCIUM 9.4 mg/dL (8.5-10.1); CREATININE 1.3 mg/dL (0.6-1.0); POTASSIUM 4.6 mmol/L (3.5-5.1)
[2019-01-18 13:45] LABS: ALBUMIN 2.7 g/dL (3.4-5.0); SALICYLATE 3.6 mg/dL (2.8-20.0); TOTAL BILIRUBIN 0.3 mg/dL (<0.1-1.0); TOTAL PROTEIN 6.5 g/dL (6.4-8.2)
[2019-01-18 13:48] LABS: URINE BILIRUBIN NEGATIVE (Negative); URINE BLOOD TRACE (Negative); URINE CLARITY SL HAZY; URINE COLOR YELLOW; URINE GLUCOSE-RANDOM* NEGATIVE (Negative); URINE KETONES NEGATIVE (Negative); URINE LEUKOCYTES 2+ (Negative); URINE NITRITE POSITIVE (Negative); URINE PROTEIN (DIPSTICK) NEGATIVE (Negative); URINE UROBILINOGEN 0.2 E.U./dl (0.2-1.0)
[2019-01-18 13:57] LABS: CASTS None Seen /LPF (None Seen); MUCUS 0-3 Light strn/LPF (None Seen); SQUAMOUS 4-10 Moderate /LPF (0-3)
[2019-01-18 13:58] LABS: BACTERIA >30 Many /HPF (None Seen); CRYSTALS None Seen /LPF (None Seen); URINE RBC None Seen /HPF (0-2); WBC CLUMPS Occasional (None Seen)
[2019-01-18 14:12] LABS: AMP/METHAMP Negative (Negative); BARBITURATES Negative (Negative); BENZODIAZEPINES POSITIVE (Negative); COCAINE Negative (Negative); METHADONE Negative (Negative); OPIATES POSITIVE (Negative); PCP Negative (Negative)
[2019-01-18] MEDS ORDERED: MACROBID 100 M100 M1 PO (14:40)
[2019-01-18 15:44] VITALS: BP 162/87
== END 2019-01-18 15:50 | disposition home or self-care (01) ==
LOC: ER 12:45
PROVIDERS: Emergency Medicine
DX: S01.81XA Laceration without foreign body of other part of head, initial encounter (principal); S93.491A Sprain of other ligament of right ankle, initial encounter; S80.02XA Contusion of left knee, initial encounter; S80.01XA Contusion of right knee, initial encounter; S70.12XA Contusion of left thigh, initial encounter; S70.11XA Contusion of right thigh, initial encounter; I12.9 Hypertensive chronic kidney disease with stage 1 through stage 4 chronic kidney disease, or unspecified chronic kidney disease; N18.9 Chronic kidney disease, unspecified; D64.9 Anemia, unspecified; N39.0 Urinary tract infection, site not specified; G89.29 Other chronic pain; M54.2 Cervicalgia; M19.90 Unspecified osteoarthritis, unspecified site; K21.9 Gastro-esophageal reflux disease without esophagitis; J45.909 Unspecified asthma, uncomplicated; Z87.442 Personal history of urinary calculi; Z90.49 Acquired absence of other specified parts of digestive tract; Z98.890 Other specified postprocedural states; Z79.899 Other long term (current) drug therapy; W18.39XA Other fall on same level, initial encounter; Y93.89 Activity, other specified; Y92.098 Other place in other non-institutional residence as the place of occurrence of the external cause; Y99.8 Other external cause status

== ENCOUNTER 2019-02-07 19:49 | Emergency (ER) | payer OTHER, BC ==
[~2019-02-07] VITALS: Ht 167.6 cm; Wt 77.1 kg
[~2019-02-07 19:49] MED LIST changes: +MACROBID 100 M100 M1 PO
[2019-02-07] MEDS ORDERED: OXYCODONE HCL10 MG PO (21:08)
[2019-02-07 21:54] VITALS: BP 172/54
[2019-02-09] MEDS ORDERED: VITAMIN D250000 UNIT PO (15:21)
[2019-02-09] MEDS ORDERED: EPIPEN0.3 MG/0.1 IM (15:24)
[2019-02-09] MEDS ORDERED: PROTONIX40 M1 PO (15:25)
[2019-02-09] MEDS ORDERED: VENTOLIN HFA 1818 GM INH (15:26)
[2019-02-09] MEDS ORDERED: PERCOCET 10-321 EACH PO (15:26)
[2019-02-09] MEDS ORDERED: PEPCID AC20 MG PO (16:02)
== END 2019-02-07 21:54 | disposition home or self-care (01) ==
LOC: ER 19:49
DX: S82.832A Other fracture of upper and lower end of left fibula, initial encounter for closed fracture (principal); I10 Essential (primary) hypertension; M19.90 Unspecified osteoarthritis, unspecified site; J45.909 Unspecified asthma, uncomplicated; K21.9 Gastro-esophageal reflux disease without esophagitis; Z91.030 Bee allergy status; Z86.2 Personal history of diseases of the blood and blood-forming organs and certain disorders involving the immune mechanism; Z90.49 Acquired absence of other specified parts of digestive tract; Z90.89 Acquired absence of other organs; Z88.8 Allergy status to other drugs, medicaments and biological substances; Z88.0 Allergy status to penicillin; W18.39XA Other fall on same level, initial encounter; Y92.89 Other specified places as the place of occurrence of the external cause; Y93.89 Activity, other specified; Y99.8 Other external cause status

== ENCOUNTER 2019-02-15 05:40 | Inpatient (IN) | payer OTHER ==
[~2019-02-15] VITALS: Ht 167.6 cm; Wt 76.7 kg
[~2019-02-15 05:40] MED LIST changes: +EPIPEN0.3 MG/0.1 IM; +OXYCODONE HCL10 MG PO; +PEPCID AC20 MG PO; +PROTONIX40 M1 PO; +VENTOLIN HFA 1818 GM INH; +VITAMIN D250000 UNIT PO
[2019-02-15 07:33] LABS: HEMATOCRIT 34.2 % (37.0-47.0); HEMOGLOBIN 11.2 gm/dL (12.0-15.0); MCH 28.9 pg (26.0-34.0); MCHC 32.8 g/dL (28.0-37.0); MCV 88.1 fL (80.0-100.0); RBC 3.88 mil/uL (4.20-5.00); RDW 15.6 % (10.5-14.5); WBC 6.6 thou/uL (4.0-11.0)
--- NOTE | 2019-02-15 08:03 | EKG ---
[address] [address] ELECTROCARDIOGRAM REPORT Name: PRITESH KILPATRICK Room #: 150-2 ADM IN M.R.#: [id number] ������������������ Admission: 02/15/19 ������������������ Attend Phys: Jenelle Mon MD, Discharge: ������������������ Date of : 55 Report #: [id number] ����������������������������������������������������������������� [id number] THIS REPORT FOR: //name// [facility] Test Date: 2019-02-15 Test Time: 07:18:04 Pat Name: PRITESH KILPATRICK Department: Room: 150 2 Gender: F Museum Guide: eleni : 1955 Requested By: Jenelle Mon Order Number: [id number] MD: Dale Rice Measurements Intervals Edgar Rate: 74 P: 10 CO: 145 QRS: 5 QRSD: 77 T: 19 QT: 369 QTc: 410 Interpretive Statements Sinus rhythm Abnormal R-wave progression, early transition Baseline wander in lead(s) I,II,aVR,V1,V2 Compared to ECG 01/06/2018 14:22:19 No significant changes Electronically Signed On 02-15-2019 8:02:54 CDT by Dale Rice [email or web address] ��������������������������������������������� <ELECTRONICALLY SIGNED> ���������������������������������������� By: Dale Rice MD ��������������������������������������������� 02/15/19801 7 7 Dale Rice MD /EPI
[2019-02-15 08:12] VITALS: BP 123/66
[2019-02-15 08:13] LABS: CALCIUM 10.2 mg/dL (8.5-10.1); CREATININE 1.8 mg/dL (0.6-1.0); POTASSIUM 4.1 mmol/L (3.5-5.1)
--- NOTE | 2019-02-15 12:33 | O ---
[facility] [place] [address] [address] [place] [address] OPERATIVE REPORT Name: PRITESH KILPATRICK Room #: 150-2 ADM IN M.R.#: [id number] Admission: 02/15/19 ������������������ Attend Phys: Jenelle Mon MD, Discharge: ������������������ Date of : 55 Report #: [id number] THIS REPORT FOR: //name// CC: Jenelle Lemon DATE OF SERVICE: 02/15/2019 PREOPERATIVE DIAGNOSIS: Chronic recurrent sigmoid diverticulitis. POSTOPERATIVE DIAGNOSIS: Chronic recurrent sigmoid diverticulitis. PROCEDURES PERFORMED: 1. Laparoscopic sigmoid colectomy with stapled colorectal anastomosis. 2. Laparoscopic mobilization of the splenic flexure. SURGEON: Jenelle Mon MD BOX BLANK MACHINE OPERATOR HELPER: Andrey Pelletier DO ANESTHESIA: General endotracheal anesthesia. ESTIMATED BLOOD LOSS: Minimal (less than 5 mL). COMPLICATIONS: None appreciated. SPECIMENS: Sigmoid colon with the open end being proximal to pathology. INDICATIONS: The patient is a 63-year-old female with multiple bouts of prior sigmoid diverticulitis and chronic left lower quadrant abdominal pain. The patient was treated most recently with antibiotics several weeks ago, completely resolving her bout of diverticulitis and underwent colonoscopy, showing no evidence of mass lesions. As such, indication was for definitive surgical management with the above-mentioned procedures today. DESCRIPTION OF PROCEDURE: After explaining the risks, benefits and alternatives of the procedure with the patient in detail in the preoperative holding area and obtaining written consent, the patient was brought to the operating room and placed supine on the operating room table. After conducting a thorough timeout procedure, verifying correct patient and procedure, the patient was given general endotracheal anesthesia. Once adequate anesthesia was obtained, her SCDs were hooked up to pneumatic compression device and she was given a preoperative dose of antibiotics in line with the SCIP protocol. The patient's abdomen was now prepped and draped in standard surgical sterile fashion after positioning her in the low lithotomy position with her legs in the Yellofin stirrups. 5 mL of 0.5% Marcaine with epinephrine were used to anesthetize the [address] [address] OPERATIVE REPORT Name: PRITESH KILPATRICK Room #: 150-2 [facility] IN ..#: [id number] Admission: 02/15/19 ������������������ Attend Phys: Jenelle Mon MD, Discharge: ������������������ Date of : 55 Report #: [id number] skin, 2 cm cephalad to the umbilicus and 2 cm to the patient's right. A #15 bladed scalpel was used to create a small skin luca at this location. A 5 mm Visiport was placed over 0-degree 5 mm laparoscope and was introduced through this incision site. Once intra-abdominal placement was verified visually, the obturator for the trocar and laparoscope were both removed and the abdomen was insufflated to 15 mmHg using carbon dioxide gas. The laparoscope was changed to a 5-mm 30-degree laparoscope, which was reintroduced through this trocar. The entire abdomen was evaluated to ensure no injury upon entry. We immediately identified dense adhesions in the left lower quadrant. These were mainly of omentum as well as sigmoid colon stuck to the left adnexa. I now placed 2 additional trocars. A 5 mm port was placed in the left midclavicular line just cephalad to the umbilicus. An additional 12 mm port was placed in the right lower quadrant. Both additional trocars were placed under direct vision after anesthetizing the skin at each location with 5 mL of 0.5% Marcaine with epinephrine, and I had created appropriately sized skin nicks using #15 bladed scalpel. The patient was now placed in Trendelenburg position with left side elevated and I used the articulating EnSeal device to take down all the adhesions from the abdominal wall. The sigmoid colon was plastered to the left adnexa and underside of the uterus and this was tediously dissected off using blunt dissection as well as the EnSeal device. Once I had freed the entirety of the colon, I was able to elevate it cephalad and find a healthy juncture at the rectosigmoid juncture. This was elevated and a window was made in the mesentery using the EnSeal device. The [place] 60 mm stapler with a blue load was now entered into the abdomen where one blade was passed through the window in the mesentery, it was clamped and fired completely, transecting the colon at the rectosigmoid juncture where it was healthy. The proximal staple line was now grasped and elevated and I proceeded to take down the mesentery using the articulating EnSeal device, marching cephalad until I was proximal to the diseased segment. Care was taken to stay out of the left pericolic gutter, so as not to injure the left ureter, which was identified and preserved throughout. Once I had arrived upon healthy descending colon, evaluation showed that it was going to be slightly difficult to get down to the rectal stump and as such, I did perform a full mobilization of splenic flexure. The articulating EnSeal device was used to take down the white line of Toldt on the left lateral abdomen, all the way up around the splenic flexure to allow significant mobility of the colon to drop down into the pelvis. I now identified an appropriate site in the low abdomen for extraction. The abdomen was desufflated. A 5 cm transverse skin incision was made using a #15 bladed scalpel. Electrocautery was used to carry this down through skin and subcutaneous tissues to arrive upon fascia, which was opened transversely as well. The muscles were then spread laterally and I opened on the midline through the peritoneum. A wound protector was then placed in through the abdominal wall and the proximal staple line of the diseased colon was grasped and pulled up, bringing the entire bowel extracorporeal. The healthy site on the descending colon was identified and cleaned off and the auto pursestring suture device was then placed at this juncture. The diseased bowel was removed with curved Romero scissors and passed [facility] [address] [place] [address] OPERATIVE REPORT Name: PRITESH KILPATRICK BOBBY Room #: 150-2 ADM IN [facility].#: [id number] Admission: 02/15/19 ������������������ Attend Phys: Jenelle Mon MD, Discharge: ������������������ Date of : 55 Report #: [id number] off the field with the open end being proximal. The auto pursestring suture device was removed and three Allis clamps were placed on the open end of bowel to triangulate it. The open bowel was now sized appropriately, showing a diminutive colon that would only handle a 25 EEA. Therefore, the appropriate 25 EEA anvil was placed in the open end of bowel and the pursestring suture was then tied down around the post. Care was taken to ensure there was not significant bulky fat around the post itself. This was placed back in the abdomen and the cap was placed on the wound protector. The abdomen was reinsufflated. We now dilated the rectal stump using the rigid proctoscope, the 25 EEA sizer and the 28 EEA sizer which was done with some difficulty. The 25 EEA stapler was then placed at the proximal aspect of the rectum and the spike was delivered through the end of the healthy bowel. The spike and the anvil were mated and the stapler was ratcheted down, ensuring no twisting to the bowel whatsoever. The stapler was fired and removed, showing 2 complete beefy anastomotic rings. I now proceeded to fill the pelvis with normal saline and the rigid proctoscope was placed in the rectal vault, which was used to fully insufflate across the anastomosis, seeing no evidence of bubbling, thereby signifying a negative leak test. Rigid proctoscope was removed. All normal saline was copiously irrigated and suctioned dry and the irrigant ran clear. One final evaluation of the intra-abdominal domain showed no further evidence of pathology. I then closed the 12 mm fascial incision using 0 PDS suture on the Nemesio-Kaylan suture passer device under direct vision. The abdomen was fully desufflated. All remaining trocars were removed under direct vision. The wound protector was removed. I then closed the low abdominal incision using running #1 PDS suture in standard fashion. A 4-0 Monocryl was then used in standard subcuticular fashion for all skin incisions and Dermabond glue was applied to all skin wounds. At the end of the procedure, all instrument, needle and sponge counts were correct. The patient tolerated the procedure without incident, was awakened in the operating room and transitioned to the recovery room in stable condition with no apparent complications. ��������������������������������������������� <ELECTRONICALLY SIGNED> ���������������������������������������� By: Jenelle Mon MD, FACS ��������������������������������������������� 02/15/19 1233 1141 1215 Jenelle Mon MD, FACS /nt
[2019-02-15 13:51] VITALS: BP 160/95
--- NOTE | 2019-02-15 18:30 | NUR ---
PT ARRIVED FROM OR THIS AFTERNOON. PT STABLE, ORDERS IMPLEMENTED. PT C/O PAIN, ADMINISTERED MEDICATION WHICH ALLEVIATED PAIN. FAMILY AT BEDSIDE, PT RESTING COMFORTABLY.
[2019-02-15 19:26] VITALS: BP 151/82
[2019-02-16 03:25] VITALS: BP 134/74
[2019-02-16 06:08] LABS: HEMATOCRIT 25.3 % (37.0-47.0); MCH 30.1 pg (26.0-34.0); MCV 88.5 fL (80.0-100.0); RBC 2.86 mil/uL (4.20-5.00); RDW 15.3 % (10.5-14.5); WBC 10.1 thou/uL (4.0-11.0)
[2019-02-16 06:15] LABS: HEMOGLOBIN 8.6 gm/dL (12.0-15.0)
[2019-02-16 06:23] LABS: CALCIUM 8.5 mg/dL (8.5-10.1); CREATININE 1.5 mg/dL (0.6-1.0); POTASSIUM 4.9 mmol/L (3.5-5.1)
[2019-02-16 07:35] VITALS: BP 123/63
--- NOTE | 2019-02-16 07:44 | NUR ---
progress pt vss, a/o x4 lungs slightly wheezy in all holliday RT in to eval and treat. marroquin intact draining adequate amount of urine, ivf's infusing as ordered. pt bs active and abdomen soft and rounded reports gas pain. pain controlled with .25 mg of dilaudid x3 and oxycodone x 1. tolerating clear liquids with adequate intake. scd's in place. has had multiple falls and currently has a fractured lower left leg with a walking boot in place, fall precautions in place. pt using call light appropriately. continue poc.
[2019-02-16 13:57] VITALS: BP 123/72
--- NOTE | 2019-02-16 14:44 | NUR ---
PT ADMITTED RELATED TO LAPAROSCOPIC SIGMOID RESECTION, HEMICOLECTOMY. MC REVIEWED CHART AND SPOKE WITH CARE TEAM. CM MET WITH PT AT BEDSIDE THIS DAY. PT IS A&O X4. CM ROLE INTRODUCED. PT INDICATED THAT SHE LIVES IN A HOUSE ALONE. SHE INDICATED SHE HAS [employer]WW AND CANE TO ASSIST WITH MOBILITY SHOULD SHE NEED THEM. PT INDIATED SHE HAD [facility] TO ASSIST WITH DC NEEDS. CM CALLED [facility] FAX AND SPOKE WITH AGUSTÍN. SHE INDICATED THAT ANY SERVICES NEEDED UPON DC WOULD NEED TO BE ORDERED FOR HER UPON DC. CHART INDICATED PT HAD BEEN ON SERVICE WITH [facility] AND [facility] IN THE PAST. CM TO FOLLOW INDICATED WITH DC PLANNING.
[2019-02-16 17:59] LABS: CREATININE 1.4 mg/dL (0.6-1.0)
--- NOTE | 2019-02-16 19:19 | NUR ---
PT STABLE THROUGHOUT SHIFT. PT C/O PAIN WHICH WAS ADDRESSED WITH MEDICATION. PT UP TO CHAIR THIS EVENING.
[2019-02-16 19:32] VITALS: BP 142/83
[2019-02-17 04:56] VITALS: BP 122/59
[2019-02-17 05:30] LABS: CALCIUM 8.3 mg/dL (8.5-10.1); CREATININE 1.3 mg/dL (0.6-1.0); POTASSIUM 4.2 mmol/L (3.5-5.1)
[2019-02-17 05:34] LABS: ABSOLUTE NEUTROPHILS 4.3 thou/uL (1.4-8.2); BASOPHILS 0.4 % (0.0-2.0); EOSINOPHILS 0.8 % (0.0-3.0); HEMATOCRIT 23.7 % (37.0-47.0); LYMPHOCYTES 27.1 % (24.0-44.0); MCH 29.9 pg (26.0-34.0); MCHC 33.9 g/dL (28.0-37.0); MCV 88.2 fL (80.0-100.0); MONOCYTES 6.5 % (1.0-8.0); PLATELET COUNT 216 thou/uL (150-400); POLYS 65.2 % (36.0-66.0); RBC 2.69 mil/uL (4.20-5.00); RDW 15.5 % (10.5-14.5); WBC 6.6 thou/uL (4.0-11.0)
--- NOTE | 2019-02-17 06:27 | NUR ---
progress pt a/o x4 up with sba, incisions well approximated with no drainage or signs of infection noted, bruising noted. voiding qs, ivf's infusing as ordered antibiotics continue.marroquin in place with adequate output. o2 at 2 liters sats wnl. continue poc.
[2019-02-17 07:27] VITALS: BP 135/69
[2019-02-17 15:05] VITALS: BP 123/62
--- NOTE | 2019-02-17 19:15 | NUR ---
ASSUMED CARE 0700. ALERT X4, PAIN MANAGED WITH MEDICATIONS, UP TO CHAIR FOR IN MORNING AND AFTERNOON ALONG WITH WALKING AROUND NURSES STATIONS TWICE. COMPLAINT WITH CARES. POSSIBLE DC TOMORROW. FALL PRECAUTIONS IN PLACE. CALLS APPROPRIATLETY.
[2019-02-17 19:22] VITALS: BP 147/77
[2019-02-17 22:35] VITALS: BP 132/62
[2019-02-18 03:21] VITALS: BP 130/73
[2019-02-18 05:39] LABS: ABSOLUTE NEUTROPHILS 2.8 thou/uL (1.4-8.2); BASOPHILS 0.5 % (0.0-2.0); EOSINOPHILS 2.4 % (0.0-3.0); HEMATOCRIT 25.7 % (37.0-47.0); HEMOGLOBIN 8.5 gm/dL (12.0-15.0); LYMPHOCYTES 33.9 % (24.0-44.0); MCH 29.7 pg (26.0-34.0); MCHC 33.3 g/dL (28.0-37.0); MCV 89.3 fL (80.0-100.0); MONOCYTES 6.6 % (1.0-8.0); PLATELET COUNT 253 thou/uL (150-400); POLYS 56.6 % (36.0-66.0); RBC 2.87 mil/uL (4.20-5.00); RDW 15.7 % (10.5-14.5); WBC 4.9 thou/uL (4.0-11.0)
[2019-02-18 05:55] LABS: CALCIUM 8.6 mg/dL (8.5-10.1); CREATININE 1.1 mg/dL (0.6-1.0); POTASSIUM 4.7 mmol/L (3.5-5.1)
[2019-02-18 07:58] VITALS: BP 147/83
--- NOTE | 2019-02-18 08:57 | NUR ---
progress pt progressing slowly, anxious regarding abilities voiced she's afraid of falling at home. continues to report pain and request medication but is very reluctant to get oob did ambulate one time during day shift and sat in chair x 2 , lopez llanes'bandar and pt voiding qs using bedpan states shes afraid she won't be able to get up fast enough to go. did use call light in plenty of time to toljon. increase activity diet advanced continue to monitor
--- NOTE | 2019-02-18 12:06 | PATH ---
[facility] [address] [address] PATHOLOGY RPT PROCEDURE Name: PRITESH SOTOHLEEN Room #: 451-P ADM IN M.R.#: [id number] ������������������ Admission: 02/15/19 ������������������ Date of : 55 Discharge: Report #: [id number] Path Case #: [id number] [facility] Accession Number: [id number] . 01 Material submitted: . sigmoid colon - SIGMOID COLON OPEN END IS PROXIMAL . 01 Clinical history: . Sigmoid diverticulitis . 02 Diagnosis: Large intestine, sigmoid colon, resection: - Marked acute diverticulitis associated with abscess formation. - Mild serositis. - Negative for dysplasia or malignancy. - Margins of resection (proximal and distal) showing unremarkable mucosa. (IUV:arnaldo; 02/17/2019) QMS/02/17/2019 . 02 Electronically signed: . Brie Rodriguez MD, Pathologist NPI- [id number] . 01 Gross description: . The specimen is received in formalin, labeled "Pritesh Soto, sigmoid colon" and consists of a segment of large colon measuring 13.5 cm in length and ranging from 3.6-4.8 cm in diameter with pericolic fat measuring up to 3.5 cm thick. One margin is closed with angelo while the opposite is open (designated proximal). There is an area of stricture approximately 4 cm from the proximal margin. The serosa is anaya-brown and markedly hemorrhagic. Opening reveals a markedly thickened/fibrous wall and a pink-anaya mucosa with no masses. Sectioning reveals multiple diverticula with a single perforation near the proximal margin consistent with the area of stricture. The perforation creates a linear tract for a length of approximately 7 cm with surrounding abscess formation. Medical Service Technician sections are submitted as follows: . A1: Proximal margin A2: Distal margin A3-A4: Perforation A5: Additional diverticula (SDY; 02/16/2019) SYU/SYU . 02 Pathologist provided ICD-10: K57.92, K63.0, K65.8 . [address] [address] PATHOLOGY RPT PROCEDURE Name: PRITESH SOTO BOBBY Room #: 451-P [facility] IN M.R.#: [id number] ������������������ Admission: 02/15/19 ������������������ Date of : 55 Discharge: Report #: [id number] Path Case #: [id number] [facility] . [id number] Specimen Comment: A courtesy copy of this report has been sent to Specimen Comment: [phone]. Specimen Comment: Report sent to Performed at: [address], [place] [id number] MD Levi Waters MD Phone: [phone] Performed at: [address] [id number] MD Brie Rodriguez MD Phone: [phone]
--- NOTE | 2019-02-18 12:50 | NUR ---
ASSUMED CARE 0700. PROGRESSING TOWARDS GOALS. UP TO CHAIR AT THIS TIME. TOLERATING FULL LIQUID DIET. ASSIST X1 BEDSIDE COMMODE. FALL PRECAUTINS IN PLACE. CALL LIGHT IN REACH.
[2019-02-18 14:36] VITALS: BP 122/70
[2019-02-18 21:06] VITALS: BP 171/86
--- NOTE | 2019-02-19 01:07 | NUR ---
PATIENT AOX4 MAKES NEEDS KNOWN. PAIN CONTROLLED THIS SHIFT. MIDLINE INCISION IS IS BRUISED NO S/S OF INFECTION. ALL OTHER 3 INCISIONS ARE C/D/I. PATIENT HAS LEFT ANKLE FX. ELEVATED BLE. PATIENT TOLERATING FULL LIQUID. PATIENT USES BEDPAN AT NIGHT. FALL PRECAUTION IN PLACE.PATIENT IN BED ASLEEP AT THIS TIME BREATHING REGULAR AND UNLABOURED.
[2019-02-19 03:53] VITALS: BP 154/75
[2019-02-19 08:58] VITALS: BP 130/61
[2019-02-19 14:46] VITALS: BP 124/69
--- NOTE | 2019-02-19 15:28 | NUR ---
PROGRESSING TOWARDS GOALS. TOLERATED REGULAR DIET. NO BM AT THIS TIME. WALKED AROUND NURSES STATION AND SAT IN BEDSIDE CHAIR FOR 2 HOURS. CONTINUES TO COMPLAIN OF ABD PAIN. PAIN MANAGED WITH MEDICATIONS. FALL PRECAUTIONS REMAIN IN PLACE.
[2019-02-19 20:05] VITALS: BP 175/84
[2019-02-20 04:45] VITALS: BP 185/88
--- NOTE | 2019-02-20 04:46 | NUR ---
PATIENT ALERT AND ORIENTED X4. UP TO BSC WITH ONE ASSIST. MEDICATED FOR PAIN, ANXIETY AND INCREASED B/P. IVF INFUSING W/O COMPLICATION. POSSIBLE DISCHARGE TODAY. PATIENT STATED THAT SHE HAD BEEN UP WITH HER BOOT ON DURING THE DAY WALKING. PATIENT STATES THAT HER BP IS UP DUE TO HER PAIN. WILL MONITOR. POSSIBLE DISCHARGE TODAY.
[2019-02-20 07:30] VITALS: BP 115/54
[2019-02-20 14:20] VITALS: BP 147/81
--- NOTE | 2019-02-20 18:40 | NUR ---
ASSUMED CARE OF PATIENT AT 0715, PATIEN T ALERT AND ORIENTED X 4. PATIENT UP WITH ASSIST X 1 TO BSC. PATIENT C/O PAIN WITH ABDOMEN AREA GENERALIZED, PATIENT HAS RECEIVED DILAUDID 1MG X 2 AND OXYCODONE 1 TABLET X 1 THIS SHIFT. PATIENT HAS RIGHT FOREARM IV WITH D5NS WITH 20 KCL AT 100CC/HR. PATIENT DIDNT AMBULATE TODAY, SPENT MOST OF THE DAY IN BED. DR COLON HERE THIS AM, PATIENT WILL DISCHARGE TO HOME TOMORROW. WILL CONTINUE TO MONITOR. PATIENT HAS 3 LAP SITES, C/D/I NO S/S OF INFECTION. PATIENT HAS INCISION TO LOWER ABDOMEN/GROIN AREA, BRUISED AND INCISION INTAKE
[2019-02-20 19:15] VITALS: BP 136/65
--- NOTE | 2019-02-21 02:03 | NUR ---
patient uses bedside commode this shift. patient has 3 lapsite and one midline incision, bruise and redness noted,incisions and lapsites are c/d/i no s/s of infection noted. pain controlled this shift. patient continues to say that she thinks her left ankle has no fx. because she can stand on the feet.fall precaution in place. patient in bed asleep at this time breathing regular and unlaboured.
[2019-02-21 03:18] VITALS: BP 158/60
[2019-02-21 08:00] VITALS: BP 146/62
--- NOTE | 2019-02-21 11:47 | NUR ---
ASSUMED CARE 0700. PAIN MANAGED WITH MEDICATIONS, PT VOICED SHE DOES NOT HAVE MUCH OF AN APPETITE. UP TO CHAIR AND WALKING AROUND NURSIN UNIT. PLANS TO DC TOMORROW. NO BM AT THIS TIME.
[2019-02-21 15:00] VITALS: BP 153/74
[2019-02-21 19:21] VITALS: BP 129/61
--- NOTE | 2019-02-22 07:56 | NUR ---
PROGRESS PT UP WITH SBA VOIDING QS, ABDOMEN SOFT WITH INCISIONS WELL APPROXIMATED WITH NO DRAINAGE OR S/S OF INFECTION. TOLERATING DIET BS POSITIVE REPOSTS FLATUS BUT NO STOOL PAIN CONTROLLED WITH ORAL MEDICATIONS POSSIBLY DC HOME TODAY.
[2019-02-22 07:59] VITALS: BP 137/65
[2019-02-22] MEDS ORDERED: SENOKOT-S TABL1 EACH PO (12:53)
[2019-02-22 13:46] VITALS: BP 137/65
[2019-02-22 14:42] VITALS: BP 156/82
--- NOTE | 2019-02-22 15:36 | NUR ---
PHYSICIAN INDICATED THAT PT IS MEDICALLY STABLE TO DISCHARGE HOME THIS DAY WITH HOME HEALTH SERVICES. [facility] IS ABLE TO ACCEPT PT FOR SERVICES UPON DC THIS DAY. NO OTHER CM INTERVENTION INDICATED AT THIS TIME. CASE CLOSED.
--- NOTE | 2019-02-22 16:36 | NUR ---
PT STABLE THROUGHOUT SHIFT. PT UP TO CHAIR FOR SEVERAL HOURS WITH NO COMPLAINTS. PT C/O PAIN, ADMINISTERED MEDICATION. PT DISCHARGED HOME, STILL CONCERNED ABOUT LACK OF SIGNIFICANT B.M. PHYSICIAN AWARE. PT DISCHARGED HOME WITH . PT LEFT UNIT VIA WHEELCHAIR TO PRIVATE VEHICLE.
== END 2019-02-22 16:49 | disposition home health service (06) | DRG 331 ==
LOC: 4W 05:40 → TBA 05:40 → PRE 10:21 → 4W 13:43 → OR 15:26 → EDSTATUS 15:27 → ENTRNSPT 02-22 16:12 → 4W 02-22 16:49
PROVIDERS: Anesthesiology; ADMIT Surgery
PROC: 0DBN4ZZ Excision of Sigmoid Colon, Percutaneous Endoscopic Approach (ICD-10-PCS; principal; 2019-02-15)
DX: K57.32 Diverticulitis of large intestine without perforation or abscess without bleeding (principal); I10 Essential (primary) hypertension; I25.10 Atherosclerotic heart disease of native coronary artery without angina pectoris; J45.909 Unspecified asthma, uncomplicated; K21.9 Gastro-esophageal reflux disease without esophagitis; Z95.5 Presence of coronary angioplasty implant and graft; Z79.899 Other long term (current) drug therapy; Z90.49 Acquired absence of other specified parts of digestive tract; Z88.0 Allergy status to penicillin; Z88.8 Allergy status to other drugs, medicaments and biological substances; Z91.030 Bee allergy status
CPT/HCPCS: 10047; 50010; 50101; 50249; 50290; 50386; 50455; 50525; 50555; 50558; 50740; 50804; 51398; 51437; 51489; 52182; 52265; 53307; 54022; 54118; 56462; 56525; 56526; 56530; 56753; 57092; 57108; 62110; 62900; 70005

== ENCOUNTER 2020-02-22 18:11 | Emergency (ER) | payer OTHER, BC ==
[~2020-02-22] VITALS: Ht 167.6 cm; Wt 77.1 kg
[~2020-02-22 18:11] MED LIST changes: +SENOKOT-S TABL1 EACH PO
[2020-02-22 18:49] LABS: ABSOLUTE NEUTROPHILS 11.9 thou/uL (1.4-8.2); BASOPHILS 0.1 % (0.0-2.0); HEMATOCRIT 26.8 % (37.0-47.0); LYMPHOCYTES 3.8 % (24.0-44.0); MCH 30.7 pg (26.0-34.0); MCHC 33.6 g/dL (28.0-37.0); MCV 91.3 fL (80.0-100.0); MONOCYTES 2.7 % (1.0-8.0); PLATELET COUNT 187 thou/uL (150-400); POLYS 93.4 % (36.0-66.0); RBC 2.93 mil/uL (4.20-5.00); RDW 15.6 % (10.5-14.5); WBC 12.7 thou/uL (4.0-11.0)
[2020-02-22 18:55] LABS: CALCIUM 8.5 mg/dL (8.5-10.1); CREATININE 1.5 mg/dL (0.6-1.0); POTASSIUM 3.5 mmol/L (3.5-5.1)
[2020-02-22 19:01] LABS: ALBUMIN 3.1 g/dL (3.4-5.0); DIRECT BILIRUBIN 0.1 mg/dL (<0.1-0.2); TOTAL BILIRUBIN 0.9 mg/dL (0.2-1.0); TOTAL PROTEIN 6.6 g/dL (6.4-8.2)
[2020-02-22 19:08] LABS: URINE BILIRUBIN NEGATIVE (Negative); URINE BLOOD TRACE (Negative); URINE CLARITY CLEAR; URINE COLOR YELLOW; URINE GLUCOSE-RANDOM* NEGATIVE (Negative); URINE KETONES NEGATIVE (Negative); URINE LEUKOCYTES-REFLEX TRACE (Negative); URINE NITRITE-REFLEX NEGATIVE (Negative); URINE PROTEIN (DIPSTICK) NEGATIVE (Negative); URINE UROBILINOGEN 0.2 E.U./dl (0.2-1.0)
[2020-02-22 21:46] VITALS: BP 147/81
--- NOTE | 2020-02-23 08:59 | EKG ---
[facility] [place] [address] [address] [place] [address] ELECTROCARDIOGRAM REPORT Name: PRITESH KILPATRICK Room #: DEP [id number] Admission: 02/22/20 Attend Phys: Discharge: 02/22/20 Date of : 55 Report #: [id number] THIS REPORT FOR: cc: Apryl Lemon MD, Pamela M. MD Lundgren,Dejuan Rojas MD [facility] ~ THIS REPORT FOR: //name// [facility] ED Test Date: 2020-02-22 Test Time: 18:37:34 Pat Name: PRITESH KILPATRICK Department: Room: Gender: F Gis Technician: : 1955 Requested By: Leigh Virgen Order Number: [id number] MD: Dejuan Mays Measurements Intervals [place] Rate: 117 P: 15 [place]: 131 QRS: 17 QRSD: 63 T: 25 QT: 299 QTc: 417 Interpretive Statements Sinus tachycardia Otherwise no significant abnormality Compared to ECG 02/15/2019 07:18:04 Heart rate has increased Electronically Signed On 02-23-2020 8:57:02 CDT by Dejuan Mays [email or web address] <ELECTRONICALLY SIGNED> By: Dejuan Mays MD, [facility] 02/23/20 0857 [id number] Dejuan Mays MD, [facility] /EPI
== END 2020-02-22 21:59 | disposition home or self-care (01) ==
LOC: ER 18:11
PROVIDERS: Emergency Medicine
DX: J06.9 Acute upper respiratory infection, unspecified (principal); Z20.828 Contact with and (suspected) exposure to other viral communicable diseases; R50.9 Fever, unspecified; K21.9 Gastro-esophageal reflux disease without esophagitis; J45.909 Unspecified asthma, uncomplicated; D72.829 Elevated white blood cell count, unspecified; Z91.030 Bee allergy status; Z88.3 Allergy status to other anti-infective agents; Z88.0 Allergy status to penicillin; Z88.8 Allergy status to other drugs, medicaments and biological substances; Z79.899 Other long term (current) drug therapy; Z90.49 Acquired absence of other specified parts of digestive tract

== ENCOUNTER 2020-02-23 15:03 | Inpatient (IN) | payer OTHER, BC ==
[~2020-02-23] VITALS: Ht 167.6 cm; Wt 79.2 kg
[2020-02-23 15:07] VITALS: BP 82/50
[2020-02-23 15:43] LABS: HEMATOCRIT 26.5 % (37.0-47.0); HEMOGLOBIN 8.9 gm/dL (12.0-15.0); MCH 30.7 pg (26.0-34.0); MCHC 33.5 g/dL (28.0-37.0); MCV 91.7 fL (80.0-100.0); PLATELET COUNT 190 thou/uL (150-400); RBC 2.89 mil/uL (4.20-5.00); RDW 15.9 % (10.5-14.5); WBC 16.9 thou/uL (4.0-11.0)
[2020-02-23 15:52] LABS: CALCIUM 7.9 mg/dL (8.5-10.1); CREATININE 2.4 mg/dL (0.6-1.0); POTASSIUM 3.6 mmol/L (3.5-5.1)
[2020-02-23 15:58] LABS: ALBUMIN 2.4 g/dL (3.4-5.0); DIRECT BILIRUBIN 0.1 mg/dL (<0.1-0.2); TOTAL BILIRUBIN 0.7 mg/dL (0.2-1.0); TOTAL PROTEIN 5.7 g/dL (6.4-8.2)
[2020-02-23 16:14] LABS: ABSOLUTE NEUTROPHILS 16.1 thou/uL (1.4-8.2); METAMYELOCYTES 1 %; PLATELET ESTIMATE NORMAL
[2020-02-23 17:28] LABS: URINE BILIRUBIN NEGATIVE (Negative); URINE BLOOD NEGATIVE (Negative); URINE CLARITY CLEAR; URINE COLOR YELLOW; URINE GLUCOSE-RANDOM* NEGATIVE (Negative); URINE KETONES NEGATIVE (Negative); URINE LEUKOCYTES-REFLEX NEGATIVE (Negative); URINE NITRITE-REFLEX NEGATIVE (Negative); URINE PROTEIN (DIPSTICK) NEGATIVE (Negative); URINE SPECIFIC GRAVITY <= 1.005 (1.005-1.035); URINE UROBILINOGEN 0.2 E.U./dl (0.2-1.0)
[2020-02-23 21:13] VITALS: BP 108/51
--- NOTE | 2020-02-23 21:15 | NUR ---
CALLED FOR REPORT AND WAS TOLD NURSE IS IN AN ISOLATION ROOM AND WILL CALL BACK FOR REPORT
[2020-02-23 22:21] VITALS: BP 89/46
[2020-02-23 23:15] VITALS: BP 111/63
[2020-02-24] VITALS (45 sets, daily range): BP systolic 65–889; BP diastolic 24–108
--- NOTE | 2020-02-24 02:24 | NUR ---
PT ADMTTED FROM ER WITH ALL HER BELONGINGS. ORIENTED PT TO ROOM, FALL PRECAUTIONS,ETC. A&OX4. VSS, LOW GRADE TEMPERATURE. 97% ON 2LNC. ANXIOUS. XANAX GIVEN FOR ANXIETY AND FENTANYL GIVEN FOR PAIN SINCE SHE REFUSED OXYCODONE OR HYDROCODONE AND INSISTED THE DR BE CALLED. LUDMILA AGEE NOTIFIED PER CHARGE ELIAS LE RN. FENTANYL GIVEN FOR GENERALIZED JOINT PAIN ESPECIALLY THE RIGHT KNEE WHICH IS RED WITH 3+ EDEMA NOTED. SHE IS VERY TENDER TO LIGHT TOUCH, MOVEMENT OR REPOSITIONING. PICTURES TAKEN OF UNDERNEATH RIGHT BREAST WHICH IS OPEN SUPERFICIALLY. NYSTATIN APPLIED ORDERED. REDNESS NOTED LEFT BREAST/CHEST, LEFT HAND, RIGHT KNEE, AND SMALL AMT NOTED RADHA AREA. PURE WICK APLIED TO PT. SHE HAS USED THE BEDPAN 2 TIMES NOW. LIGHT BROWN LIQUID STOOL NOTED. REFUSED STOOL SOFTENER. MOISTURE BARRIER APPLIED. NO BREAKDOWN NOTED ON PERINEAL AREA OR HEELS. FEET ELEVATED ON PILLOW. REPOSITIONING PT Q 2 HRS. PT HAS NOT ATTEMPTED TO USE BSC DUE TO PAINFUL RIGHT KNEE AND JOINTS. SHE IS USING BEDPAN FOR NOW PER HER REQUEST. OFFERED DINNER TRAY FROM NUTRITION . PT ONLY TOOK A FEW BITES THEN WENT TO SLEEP. IV FLUIDS INFUSING WITHOUT DIFFICULTY LEFT FA. PRESENTLY SHE IS SLEEPING QUIETLY. NO C/O PAIN.
[2020-02-24 04:27] LABS: HEMOGLOBIN 8.2 gm/dL (12.0-15.0); MCH 30.5 pg (26.0-34.0); MCHC 32.7 g/dL (28.0-37.0); MCV 93.2 fL (80.0-100.0); PLATELET COUNT 162 thou/uL (150-400); RBC 2.69 mil/uL (4.20-5.00); RDW 16.3 % (10.5-14.5)
[2020-02-24 04:49] LABS: CALCIUM 6.9 mg/dL (8.5-10.1); CREATININE 2.4 mg/dL (0.6-1.0); POTASSIUM 4.2 mmol/L (3.5-5.1)
[2020-02-24 05:37] LABS: ABSOLUTE NEUTROPHILS 17.9 thou/uL (1.4-8.2); NUCLEATED RBCS 1 /100WBC
[2020-02-24 05:38] LABS: ANISOCYTOSIS 1+; LARGE PLATELETS OCCASIONAL
--- NOTE | 2020-02-24 08:05 | NUR ---
NOTIFIED LUDMILA AGEE FIRE SUPERVISOR OF MG 1.0, BUN 41 CR 2.4 AND BP 76/48. 500 ML NS BOLUS GIVEN , ALBUMIN 25GM GIVEN IV, MAG IV GIVEN ORDERED. VANCOMYCIN GIVEN. ORTHOPEDIC DR MAYEN CAME AND ASPIRATED FLUID FROM RIGHT KNEE. FLUID SENT TO LAB PER ALIYAH BAKER. DR LUNDBERG NEPHROLOGY CAME TO SEE PT REGARDING INCREASED BUN AND CR WORSENING RENAL STATUS. 1000 ML FLUID BOLUS STARTED ORDERED. PT TRANSFERED TO ICU WITH ALL HER BELONGINGS. REPORT GIVEN TO SAMPSON BAKER.
--- NOTE | 2020-02-24 08:06 | NUR ---
PT ARRIVED TO ROOM 236 VIA BED FROM 3W. PT ON 2L NC. PT ALERT BUT DROWSY. PT HAD BEEN INCONTINENT OF STOOL AND WAS CLEANED UP. FLUID BOLUS RUNNING, MAGNESIUM RUNNING AND MAINTENANCE IV FLUIDS. PT BLOOD PRESSURE 109/37 MAP 61. HR 80, RESPIRATIONS 17. SPO2 100% ON 2L NC. SMALLS INSERTED 50 ML CLEAR DARK YELLOW URINE RETURNED IMMEDIATELY. PT TOLERATED WELL, NO INSERTION DIFFICULTY. DR LUNDBERG PAGED PER HIS REQUEST. ORDER FOR ANOTHER LITER OF NS BOLUS AFTER THIS ONE IS COMPLETED AND A CENTRAL LINE TO BE INSERTED PER IV TEAM. AFTER SECOND LITER BOLUS COMPLETED RETURN CALL TO DR LUNDBERG FOR FURTHER ORDERS TO BE MADE.
--- NOTE | 2020-02-24 08:33 | NUR ---
CLARIFIED WITH PHARMACIST REGARDING PT HAS ALLERGY TO PCN BUT RECEIVED ROCEPHIN IN THE ER. SHE TOLERATED WELL. ROCEPHIN KEPT ON PROFILE PER PHARMACY.
[2020-02-24 11:11] LABS: BF NUCLEATED CELLS 1399 /mm3; BF RBC 14001 /mm3
[2020-02-24 12:20] LABS: TOTAL VOLUME 13 mL
[2020-02-24 12:21] LABS: CLARITY HAZY; COLOR LT RED
[2020-02-24 13:30] LABS: BF MACROPHAGE 10 %; BF NEUTROPHILS 61 %; SOURCE KNEE JOINT
[2020-02-24 14:04] LABS: BF CRYSTALS No Crystals seen
--- NOTE | 2020-02-24 14:16 | NUR ---
VAT CONSULTED FOR A CL FOR THIS PT. A 5FRTL PLACED RT IJ, TIP IN THE SVC. PLEASE SEE INSERTION NOTE FOR DETAILS
--- NOTE | 2020-02-24 16:33 | NUR ---
PAGE PLACED TO DR APONTE FOR PT DECREASED URINE OUTPUT OVER THE LAST FEW HOURS
--- NOTE | 2020-02-24 16:43 | NUR ---
INITIAL ASSESSMENT: Received consult. SW reviewed chart and spoke with attending physician. Pt was admitted from home due to severe sepsis. Pt was on 3W to r/o COVID-19. Pt's test is negative. Pt remains in Enhanced Isolation. Pt transferred to ICU earlier today. SW spoke with pt's [id number]-qeu, Jackelyn via phone. Introduced role of SW. Pt is normally alert/orientated x 4. Pt lives at home alone. Prior to admission, pt was independent with ADLs. Pt has a cane and walker to assist as needed. 6 steps to enter the home. No steps inside. Pt has been to [facility] in the past and has used [facility] for HH services. Pt's PCP is Dr. Apryl Lemon. Pt was not on O2 prior to admission. Pt does use an inhaler. No weekend discharge planned. Pt will need therapy evals ordered when able to participate. SW is following to assist as needed with discharge planning.
[2020-02-24 17:27] LABS: SOURCE SYNOVIAL
[2020-02-25] VITALS (28 sets, daily range): BP systolic 97–148; BP diastolic 42–85
[2020-02-25 04:59] LABS: ABSOLUTE NEUTROPHILS 12.1 thou/uL (1.4-8.2); BASOPHILS 0.2 % (0.0-2.0); EOSINOPHILS 0.9 % (0.0-3.0); HEMATOCRIT 22.2 % (37.0-47.0); HEMOGLOBIN 7.3 gm/dL (12.0-15.0); LYMPHOCYTES 6.3 % (24.0-44.0); MCH 30.3 pg (26.0-34.0); MCHC 32.8 g/dL (28.0-37.0); MCV 92.4 fL (80.0-100.0); MONOCYTES 1.5 % (1.0-8.0); PLATELET COUNT 137 thou/uL (150-400); POLYS 91.1 % (36.0-66.0); RBC 2.41 mil/uL (4.20-5.00); RDW 17.2 % (10.5-14.5); WBC 13.3 thou/uL (4.0-11.0)
[2020-02-25 05:32] LABS: BE(vivo) -8.8 mmol/L (-2 to +3); HCO3 16.2 mmol/L (22.0-26.0); PCO2 31.4 mmHg (35.0-45.0); PO2 106.9 mmHg (80.0-100.0); sO2 97.6 % (92.0-98.0)
[2020-02-25 07:00] LABS: ALBUMIN 1.7 g/dL (3.4-5.0); CALCIUM 7.2 mg/dL (8.5-10.1); CREATININE 2.2 mg/dL (0.6-1.0); MAGNESIUM 1.8 mg/dL (1.8-2.4); PHOSPHORUS 3.1 mg/dL (2.5-4.9); POTASSIUM 3.3 mmol/L (3.5-5.1); TOTAL BILIRUBIN 0.2 mg/dL (0.2-1.0); TOTAL PROTEIN 4.7 g/dL (6.4-8.2)
--- NOTE | 2020-02-25 07:50 | NUR ---
ASSUME CARE 1900. PT DROSY BUT EASILY AROUSES. INTERMITTENT GENERALYZED PAIN. MODERATE TOLERANCE TO ACTIVITY. A/O X 4 BUT FORGETFUL. NO DISTRESS NOTED THROUGH THE NIGHT. SR ON MONITOR. MULPTIPLE LARGE LOOSE BMs NOTED THROUGH THE NIGHT. CDIFF SAMPLE SENT AND PENDING RESULT. ASSESSMENT CHARTED. PROGRESSING MODERATELY TO PLAN OF CARE. PLAN IS TO CONTINUE TO TREAT WITH ABX AND ENCOURAGE ACTIVITY. WILL CONTINUE TO FOLLOW WITH POC
--- NOTE | 2020-02-25 12:50 | 2DMMODE ---
[facility] [place] [address] 2 D/M-MODE ECHOCARDIOGRAM Name: PRITESH KILPATRICK Room #: 236-P ADM IN M.R.#: [id number] Admission: 02/23/20 Attend Phys: Hubert Solomon MD Discharge: Date of : 55 Report #: [id number] THIS REPORT FOR: cc: Apryl Lemon MD, Pamela M. MD Lammoglia, Francisco J. MD ~ APPROVED REPORT Study performed: 02/25/2020 09:49:12 EXAM: Comprehensive 2D, Doppler, and color-flow Echocardiogram Patient Location: ICU Room #: 236 Status: routine BSA: 1.97 HR: 85 bpm BP: 117/82 mmHg Rhythm: NSR Other Information Study Quality: Adequate Indications Bacteremia 2D Dimensions RVDd: 34.04 mm IVSd: 12.56 (7-11mm) LVOT Diam: 18.07 (18-24mm) LVDd: 44.01 mm PWd: 12.35 (7-11mm) Ascending Ao: 34.71 (22-36mm) LVDs: 32.39 (25-40mm) Aortic Root: 25.53 mm IVC: 2.50 mm Volumes Left Atrial Volume (Systole) Single Plane 4CH: 93.34 mL Single Plane 2CH: 46.64 mL LA ESV Index: 36.00 mL/m2 Aortic Valve AoV Peak Evens.: 1.48 m/s AO Peak Gr.: 8.76 mmHg LVOT Max P.40 mmHg LVOT Max V: 1.16 m/s GWEN Vmax: 2.01 cm2 [facility] [address] [place] [address] 2 D/M-MODE ECHOCARDIOGRAM Name: PRITESH KILPATRICKHLEEN Room #: 236-P [facility] IN [facility].#: [id number] Admission: 02/23/20 Attend Phys: Hubert Solomon, Discharge: Date of : 55 Report #: [id number] Mitral Valve E/A Ratio: 1.1 MV Decel. Time: 147.07 ms MV E Max Evens.: 1.13 m/s MV A Evens.: 1.06 m/s MV PHT: 42.65 ms IVRT: 78.43 ms Pulmonary Valve PV Peak Evens.: 1.05 m/s PV Peak Gr.: 4.44 mmHg Pulmonary Vein P Vein S: 0.57 m/s P Vein A: 0.31 m/s P Vein D: 0.42 m/s P Vein A Dur.: 138.4 msec P Vein S/D Ratio: 1.36 Tricuspid Valve TR Peak Evens.: 4.13 m/s RAP Estimate: 15.00 mmHg TR Peak Gr.: 68.36 mmHg PA Pressure: 83.00 mmHg Left Ventricle The left ventricle is normal size. Mild concentric left ventricular hypertrophy. The left ventricular systolic function is normal. The left ventricular ejection fraction is within the normal range. LVEF is 60-65%. Right Ventricle The right ventricle is normal size. The right ventricular systolic function is normal. Atria Left atrium is mildly dilated. Right atrium is at the upper limits of normal. Aortic Valve The aortic valve is normal in structure. No aortic regurgitation is present. There is no aortic valvular stenosis. Mitral Valve The mitral valve is normal in structure. Mild mitral regurgitation. No evidence of mitral valve stenosis. Tricuspid Valve The tricuspid valve appears normal in structure. Moderate to severe tricuspid regurgitation. PAP is estimated at 83 mmHg. [facility] [address] [place] [address] 2 D/M-MODE ECHOCARDIOGRAM Name: PRITESH KILPATRICK Room #: 236-P [facility] IN .R.#: [id number] Admission: 02/23/20 Attend Phys: Hubert Solomon, Discharge: Date of : 55 Report #: [id number] Pulmonic Valve The pulmonary valve is normal in structure. Trace pulmonic regurgitation. Great Vessels The aortic root is normal in size. IVC is dilated and collapses <50% with inspiration. Pericardium There is no pericardial effusion. <Conclusion> The left ventricle is normal size. LVEF is 60-65%. Left atrium is mildly dilated. The aortic valve is normal in structure. The mitral valve is normal in structure. Mild mitral regurgitation. The tricuspid valve appears normal in structure. Moderate to severe tricuspid regurgitation. PAP is estimated at 83 mmHg. The pulmonary valve is normal in structure. Trace pulmonic regurgitation. There is no pericardial effusion. <ELECTRONICALLY SIGNED> By: Trav Solano MD 02/25/20 1247 1247 1247 Trav Solano MD /INF
--- NOTE | 2020-02-25 19:55 | NUR ---
PT IS LETHARGIC, BUT PT IS EASY TO AWAKE, PT CAN FOLLOW COMMANDS, PT IS ON O2 2-4 L/MIN/NC, PT'S VS ARE STABLE, PT DOES NOT HAVE FEVER AND N/V TODAY, PT HAS SURGICAL PROCEDURE DONE ( IRRIGATION AND DEBRIDEMENT BILATERAL LEGS AND R THUMB ) TODAY,PT DENIES PAIN AND N/V .PT IS CONTINUING IV ABX.
[2020-02-26] VITALS (28 sets, daily range): BP systolic 102–162; BP diastolic 46–85
[2020-02-26 06:21] LABS: ALBUMIN 1.7 g/dL (3.4-5.0); CALCIUM 7.3 mg/dL (8.5-10.1); CREATININE 1.9 mg/dL (0.6-1.0); PHOSPHORUS 3.3 mg/dL (2.5-4.9); TOTAL BILIRUBIN 0.2 mg/dL (0.2-1.0); TOTAL PROTEIN 4.9 g/dL (6.4-8.2); URIC ACID* 7.9 mg/dL (2.6-6.0)
--- NOTE | 2020-02-26 06:39 | NUR ---
Pt drowsy but easily aroused, A&Ox4, able to make needs known. Follows commands. Complains of pain in areas of procedure with movement. Vitals signs WNL. Pt's is on 4L via nasal cannula saturation in the 90's. No adverse events throughout the night. Pt is stable progressing towards goals. Assessments and intervention documented.
[2020-02-26 08:24] LABS: HEMOGLOBIN 6.7 gm/dL (12.0-15.0); RDW 16.9 % (10.5-14.5); WBC 6.2 thou/uL (4.0-11.0)
[2020-02-26 08:26] LABS: HEMATOCRIT 20.1 % (37.0-47.0); MCH 30.9 pg (26.0-34.0); MCHC 33.5 g/dL (28.0-37.0); MCV 92.2 fL (80.0-100.0); PLATELET COUNT 114 thou/uL (150-400); RBC 2.18 mil/uL (4.20-5.00)
--- NOTE | 2020-02-26 11:51 | NUR ---
PT'S HGB 6.7. DR. CORREIA ON UNIT AND NOTIFIED. ORDER TO TRANSFUSE 1 UNIT PRBC RECEIVED. PT TYPE AND SCREENED. CONSENT FOR BLOOD TRANSFUSION SIGNED BY PATIENT. BLOOD RETRIEVED, VITAL SIGNS RECORDED. BLOOD PRODUCT VERIFIED BY 2 RN'S. BLOOD TRANSFUSION STARTED. RN STAYED IN ROOM WITH THE PATIENT FOR THE FIRST 15 MINUTES MONITORING FOR ANY REACTIONS. NO REACTIONS NOTED AT THIS TIME. 15 MINUTE VITALS TAKEN POST START TIME. PT IS TOLERATING TRANSFUSION. WILL CONTINUE TO CLOSELY MONITOR. PT REMAINS IN ICU WITH PENDING TRANSFER ORDERS.
--- NOTE | 2020-02-26 13:11 | NUR ---
DAUGHTER TRUPTI CALLED FOR PATIENT UPDATE. PT IS ASLEEP AT THIS TIME BUT RN WILL INFORM HER WHEN SHE AWAKENS THAT HER DAUGHTER CALLED.
--- NOTE | 2020-02-26 17:28 | NUR ---
PT CARE ASSUMED AT THIS TIME. DROWSY BUT ORIENTED. DENIES PAIN AND SOA. VSS. PT AGREEABLE TO EAT SOME OF DINNER. NO DISTRESS NOTED.
--- NOTE | 2020-02-26 20:17 | NUR ---
PT'S DAUGHTER TRUPTI CALLED AND UPDATED OF PT'S TRANSFER TO ROOM 205.
[2020-02-27 00:18] VITALS: BP 117/71
[2020-02-27 04:27] VITALS: BP 119/73
[2020-02-27 04:53] LABS: HEMATOCRIT 22.8 % (37.0-47.0); HEMOGLOBIN 7.5 gm/dL (12.0-15.0); MCH 30.5 pg (26.0-34.0); MCHC 32.8 g/dL (28.0-37.0); RBC 2.45 mil/uL (4.20-5.00); RDW 17.2 % (10.5-14.5)
[2020-02-27 05:20] LABS: ALBUMIN 1.7 g/dL (3.4-5.0); CALCIUM 7.6 mg/dL (8.5-10.1); PHOSPHORUS 4.5 mg/dL (2.5-4.9); POTASSIUM 4.2 mmol/L (3.5-5.1)
[2020-02-27 07:40] VITALS: BP 128/74
--- NOTE | 2020-02-27 08:12 | NUR ---
ASSUMED PT CARE AT 1900, PT IS DROWSY, EASY TO AROUSE, ASSESSMENTS CHARTED, SR ON THE MONITOR, C/O PAIN, MEDICATED PRN WITH PARTIAL RELIEF, MEDICATIOSN GIVEN ORDERED, VSS,RESTING WITH NO DISTRESS NOTED
[2020-02-27 16:50] VITALS: BP 160/83
[2020-02-27 19:58] VITALS: BP 175/63
--- NOTE | 2020-02-27 20:24 | NUR ---
RECEIVED PT'S CARE AROUND 0730; PT. ON BED; DROWSY; TURNED TO SIDE; C/O PAIN WHEN TURNING; DURING ASSESSMENT NOTICED L. SIDE FACE DROOPING; PHYSICIAN NOTIFIED; ORDERS ON PLACED; GONE FOR CT; MRI SCREENING PERFORMED WITH PT. & SISTER IN LAW; PT. NOT ABLE TO IDENTIFY LOOP RECORDER; INFORMATION GOTTEN FROM MEDICAL RECORDS; ABLE TO HAVE MRI AFTER 1600; BS 37; PHYSICIAN NOTIFIED; ORDERS ON PLACED; GLUCOSE GIVEN; RE-ASSESSMENT 97; PT. MORE ALERT; AWAKE; ALERT TO PERSON & HOSPITAL; FORGETFUL; REFUSED MEALS THROUGH THE DAY; DURING THE EVENING C/O PAIN; PO MEDICATION GIVEN; NOT ABLE SWALLOWED; PHYSICIAN NOTIFIED; ORDERS RECEIVED; TURNED FROM SIDE TO SIDE THROUGH THE DAY; NEURO ASSESSMENT PERFORMED; NOT CHANGE FROM AM ASSESSMENT; CHECK CHARTING; ASSESSMENT CHARGED; FOLLOWING POC; PASSED ON REPORT;
[2020-02-27 20:30] VITALS: BP 173/76
[2020-02-28] VITALS (9 sets, daily range): BP systolic 143–187; BP diastolic 61–105
[2020-02-28 05:51] LABS: ALBUMIN 1.7 g/dL (3.4-5.0); CALCIUM 7.7 mg/dL (8.5-10.1); CREATININE 1.9 mg/dL (0.6-1.0); PHOSPHORUS 4.1 mg/dL (2.5-4.9); POTASSIUM 4.2 mmol/L (3.5-5.1)
--- NOTE | 2020-02-28 05:51 | NUR ---
ASSUMED CARE OF PATIENT AT 1900. PATIENT CURRENTYL NPO DUE TO INABILITY TO SWALLOW OBSERVED ON PREVIOUS SHIFT. PATIENT WILL REMAIN NPO UNTIL SPEECH CAN EVALUATE. PATIENT CONTINUES ON PPN ORDERED. PATIENT COMPLAINED OF PAIN WHEN BEING TOUCHED AND ESPECIALLY WHEN BEING MOVED. ADMINISTERED PRN DOSE OF HYDROMORPHONE ORDERED. PATIENT FOUND RESTING UPON REASSSESMENT. PATIENT CONTINUED TO REMOVE NASAL CANNULA THROUGHOUT NOC. REAPPLIED OXYGEN MULTIPLE TIMES. CONTINUED OXYGEN AT 6L WITH OXYGEN SATURATION IN MID 90s. PATIENT HAD A BP OF 173/76 AROUND MIDNIGHT AND 173/92 WHEN RETAKEN. OBTAINED PRN ORDER FOR 10MG HYDRALAZINE Q6H FOR SBP >165 AND ADMINISTERED ORDERED. MEDICATION WAS EFFECTIVE.
[2020-02-28 13:32] LABS: HEMATOCRIT 22.8 % (37.0-47.0); HEMOGLOBIN 7.5 gm/dL (12.0-15.0); MCH 30.5 pg (26.0-34.0); MCHC 32.8 g/dL (28.0-37.0); MCV 93.1 fL (80.0-100.0); RBC 2.45 mil/uL (4.20-5.00); RDW 17.4 % (10.5-14.5); WBC 4.3 thou/uL (4.0-11.0)
--- NOTE | 2020-02-28 17:23 | HC ---
[facility] [place] [address] CONSULTATION Name: PRITESH KILPATRICK Room #: 205-P ADM IN M.R.#: [id number] Admission: 02/23/20 Attend Phys: Hubert Solomon MD Discharge: Date of : 55 Report #: [id number] THIS REPORT FOR: cc: Apryl Lemon MD,Beny Donovan MD, MD ~ CC: Hubert Lemon DATE OF SERVICE: 02/24/2020 CHIEF COMPLAINT: Inframammary intertrigo. HISTORY OF PRESENT ILLNESS: This is a 64-year-old female patient who presented to the hospital with fever, chills, and myalgia and poor appetite. She was evaluated in the Emergency Department and apparently was noted to have positive blood cultures and was called back, was admitted to intensive care with sepsis and sepsis protocol. She was noted to have significant inframammary intertrigo and I have been asked to see her in this regard. She was noted to have redness involving her left knee, was felt to possibly have a septic arthritis. The patient notes tenderness in her left knee as well as a burning sensation beneath her breasts bilaterally. ALLERGIES: DOXYCYCLINE, PENICILLIN AND BENICAR. MEDICATIONS: Include Zofran, Wellbutrin, Seroquel, Desyrel, Xanax, EpiPen, pantoprazole, albuterol, famotidine. PAST MEDICAL HISTORY: Positive for iron deficiency anemia and gastroesophageal reflux disease, asthma, rheumatic fever, aortic valve insufficiency, history of H. pylori, coronary artery disease. SOCIAL HISTORY: Negative for alcohol or tobacco use. FAMILY HISTORY: Noncontributory. REVIEW OF SYSTEMS: CONSTITUTIONAL: The patient does have fever or chills. Denies recent weight loss. NEUROLOGICAL: The patient denies focal weakness, numbness or tingling. EYES: The patient denies visual changes, redness, or drainage. ENT: The patient denies earache, nasal drainage or sore throat. CARDIOVASCULAR: The patient denies chest pain, palpitations or diaphoresis. PULMONARY: The patient denies cough or shortness of breath. GASTROINTESTINAL: The patient denies nausea, vomiting, diarrhea, abdominal pain. [address] [address] CONSULTATION Name: PRITESH KILPATRICK Room #: 205-[facility] IN ..#: [id number] Admission: 02/23/20 Attend Phys: Hubert Solomon MD Discharge: Date of : 55 Report #: [id number] ORTHOPEDIC: The patient does complain of pain and swelling and redness of the left knee and left fourth toe. Other systems in a 14-point review of systems are negative. PHYSICAL EXAMINATION: VITAL SIGNS: At this time include pulse rate 75, respiratory rate 14, pulse oximetry 100%. GENERAL: This is a chronically ill-appearing female patient who appears to be in mild discomfort. HEENT: Head normocephalic. Nose and throat are clear. NECK: Supple. LUNGS: Clear. ABDOMEN: Soft. There is significant inframammary intertrigo bilaterally. The groin appears to be intact. Left knee shows erythema. Examination of the feet and heels demonstrate that the heels are intact. EXTREMITIES: She has some redness involving the fourth toe at the proximal interphalangeal joint as well. NEUROLOGIC: The patient is alert and moving all 4 extremities. LABORATORY DATA: White blood cell count 19,000; hemoglobin of 8.2. Sodium 140, potassium 4.2, chloride 106, CO2 of 23, BUN 41, creatinine 2.4. Lactic acid is now 1.7, was 4.5 on admission. CLINICAL IMPRESSION: 1. Sepsis, likely secondary to septic arthritis, left knee. 2. Inframammary intertrigo. 3. Acute kidney injury. 4. Metabolic encephalopathy. 5. Moderate protein-calorie malnutrition with history of coronary artery disease. RECOMMENDATIONS: At this point in time, the patient has been started on antibiotic therapy per Infectious Disease. There are really no open ulcerations involving the knee or toes or feet. We will recommend InterDry AG to the inframammary folds bilaterally to be changed daily. We will discontinue the nystatin powder as the patient is experiencing some discomfort with that at this time. She will be at risk for pressure ulceration. She will need turning and repositioning in bed. I appreciate being asked to see her in consultation. <ELECTRONICALLY SIGNED> By: Beny Ibarra MD 02/28/20 1723 1827 22 Beny Ibarra MD /nt
--- NOTE | 2020-02-28 20:15 | NUR ---
RECEIVED PT. AROUND 0710; PT. ON BED; RESTING WITH EYES CLOSED; EQUAL CHEST RISING NOTICED; SR ON THE MONITOR; DURING AM ASSESSMENT PT. ALERT TO PERSON & PLACE; C/O PAIN ; PRN PAIN MEDICATION GIVEN; NO ABLE TO GIVE PO MEDICATION; PER ST PT. REMAINED NPO; PHYSICIAN NOTIFIED; ELEVATED SBP; PHYSICIA NOTIFIE DURING ROUNDINGS; PRN MEDICATION GIVEN; SBP REMAINED ELEVATED; PHYSICIAN NOTIFIED; ORDERS ON PLACED; RE-ASSESSMENT SBP ON THE 165; HOSPITALIST & DR. HOPE NOTIFIED; ORDERS RECEIVED; BEFORE GIVEN LOPRESSOR PT'S SBP ON THE 180s; ELEVATED TEMPERATURE; PHYSICIAN NOTIFIED; ORDERS RECEIVED; PRN MEDICATION GIVEN; PER HOSPITALIST NOTIFIED IF TEMPERATURE RAISED TO 39.5 C; ROOM COOL OFF; FAN ON; RE-ASSESSMENT TEMPERATURE 98F; MRI ORDERS ON PLACE; PT. RESTLESS; C/O PAIN; HOSPITALIST NOTIFIED; ORDERS ON PLACE; PT. SHOWING SOME TREMORS OVER BLE; DR. KOLB NOTIFIED; ORDERS RECEIVED; GONE TO MRI AFTER 1600; PT. RESTLESS;; MEDICATION GIVEN; NURSE WITH PT. DURING MRI; BACK TO ROOM AROUN 1700; SBP 180s; PHYSICIAN NOTIFIED; ORDERS ON PLACE; MEDICATION GIVEN; MONITORING; SR ON THE MONITOR; WOUND CARE PERFORMED; ASSESSMENT CHARGED; FOLLOWING POC; PASSED ON REPORT;
[2020-02-28 22:14] LABS: URINE BILIRUBIN NEGATIVE (Negative); URINE BLOOD TRACE (Negative); URINE CLARITY CLEAR; URINE COLOR YELLOW; URINE GLUCOSE-RANDOM* NEGATIVE (Negative); URINE KETONES NEGATIVE (Negative); URINE LEUKOCYTES NEGATIVE (Negative); URINE NITRITE NEGATIVE (Negative); URINE PROTEIN (DIPSTICK) NEGATIVE (Negative); URINE UROBILINOGEN 0.2 E.U./dl (0.2-1.0)
[2020-02-29] VITALS (9 sets, daily range): BP systolic 149–187; BP diastolic 71–101
[2020-02-29 06:21] LABS: HEMATOCRIT 24.1 % (37.0-47.0); MCH 30.3 pg (26.0-34.0); MCHC 33.4 g/dL (28.0-37.0); MCV 90.9 fL (80.0-100.0); RBC 2.65 mil/uL (4.20-5.00); WBC 6.9 thou/uL (4.0-11.0)
[2020-02-29 06:30] LABS: ALBUMIN 1.7 g/dL (3.4-5.0); CALCIUM 7.8 mg/dL (8.5-10.1); CREATININE 1.6 mg/dL (0.6-1.0); PHOSPHORUS 3.6 mg/dL (2.5-4.9); POTASSIUM 4.3 mmol/L (3.5-5.1)
--- NOTE | 2020-02-29 07:50 | NUR ---
ASSUMED PT CARE AT 1900, PT IS DROWSY, EASY TO AROUSE, SR ON THE MONITOR, BP ELEVATED, MEDICATION GIVEN WITH CONTROL, C/O GENERALIZED PAIN, MEDICATED PRN WITH PARTIAL RELIEF, WOUNDS DRY AND INTACT, PT IS NPO, PPN RUNNING ORDERED, BS STABLE, ASSESSMENTS CHARTED, PASSED ON REPORT
--- NOTE | 2020-02-29 08:29 | HC ---
[facility] [place] [address] CONSULTATION Name: PRITESH KILPATRICK Room #: 205-P ADM IN M.R.#: [id number] Admission: 02/23/20 Attend Phys: Hubert Solomon MD Discharge: Date of : 55 Report #: [id number] THIS REPORT FOR: cc: Apryl Lemon MD,Apryl Ruffin-Peggy,Kelly Ken MD ~ CC: Hubert Lemon DATE OF SERVICE: 02/24/2020 REASON FOR CONSULTATION: Acute kidney injury. REASON FOR PRESENTATION: Fever and body aches. HISTORY OF PRESENT ILLNESS: A 64-year-old who was evaluated in the Emergency Room in the last 2 days. She was seen first on the for fever and chills. She had a CT abdomen and pelvis that was done with negative results and when sent home, she continued to have fever and chills and was called to come back as her blood culture from the grew Gram-positive. She reported to me significant right knee pain and redness. Unfortunately, the patient other than her right knee pain was not able to provide me with the history given her current mental status. She is confused. She is lethargic. She appears very septic with a blood pressure of 70/40. I was asked to evaluate the patient regarding her rising creatinine. She did have a CT scan of the abdomen and pelvis with contrast on the . She had constellation of sepsis with significant high white blood cell count, bandemia, high ESR, C-reactive proteins, high lactic acid. She is being ruled out for COVID-19 infection. PAST MEDICAL HISTORY: 1. Hypertension. 2. Tonsillectomy. 3. Cholecystectomy. 4. Appendectomy. 5. Anemia. 6. History of gastrointestinal bleeding. 7. History of mesenteric ischemia with mesenteric artery stents. 8. Diverticulosis. 9. Sigmoidoscopies and colonoscopies. 10. Coronary artery disease. 11. Right arm fracture with hardware placement. MEDICATIONS: 1. Trazodone. 2. Wellbutrin. 3. Alprazolam. [facility] [address] [place] [address] CONSULTATION Name: PRITESH KILPATRICK Room #: 205-P ADM IN [facility].#: [id number] Admission: 02/23/20 Attend Phys: Hubert Solomon MD Discharge: Date of : 55 Report #: [id number] 4. Pantoprazole. I do not see any blood pressure medication listed on her home medications. ALLERGIES: PENICILLIN AND DOXYCYCLINE. FAMILY HISTORY: I am not able to obtain given her current mental status. SOCIAL HISTORY: I am not able to obtain given the patient's current mental status. REVIEW OF SYSTEMS: I am not able to obtain given the patient's current mental status. PHYSICAL EXAMINATION: VITAL SIGNS: Temperature 36.2. Blood pressure is 88/40. T-max was 38.4: She is very lethargic and confused. HEAD AND NECK: No jugular venous distention. CHEST: No crackles. CARDIOVASCULAR: No rub. ABDOMEN: Soft, nontender. EXTREMITIES: Lower extremities, no edema. There is a significant knee erythema with a pustular lesion in the midst of her knee. LABORATORY DATA: Sodium 140, BUN is 41, creatinine is 2.4, calcium is 6.9, magnesium is 1.0. White blood cell count is 19,000, bands 26%. Blood cultures from the revealed Gram-positive cocci. IMPRESSION AND PLAN: 1. Acute kidney injury. 2. Severe sepsis with the right knee as the source. 3. Leukocytosis with bandemia. 4. Lactic acidosis. 5. The patient is extremely hypotensive and I requested from the nurses to move the patient down to the ICU. 6. Initiate aggressive fluid resuscitation. 7. Monitor urine output. 8. Avoid contrasted studies. 9. Avoid nonsteroidals. 10. Receiving vancomycin. 11. Replace electrolytes. 12. Looks like that her acute kidney injury is related to her sepsis, contrast exposure. 13. This should improve in the next 24-48 hours after fluid resuscitation; however, she is at very high risk for decompensation and hence moving her down to the ICU. 14. Appropriate antibiotic therapy to be initiated including vancomycin. [address] [address] CONSULTATION Name: PRITESH KILPATRICK Room #: 205-P ADM IN M.R.#: [id number] Admission: 02/23/20 Attend Phys: Hubert Solomon MD Discharge: Date of : 55 Report #: [id number] 15. If needed, we will utilize pressors. 16. We will continue to follow. <ELECTRONICALLY SIGNED> By: Kelly Beltran MD 02/29/20828 6 Kelly Beltran MD /nt
--- NOTE | 2020-02-29 10:50 | NUR ---
WOUND CONSULT; ROUNDING WITH DR DUMONT AND ANA RN. SURGICAL WOUNDS WERE ASSESSED S/P SURGICAL DEBRIDMENT WITH RETENTION SUTURES IN PLACE TO ALLOW PACKING. THE WOUNDS ARE BILATERAL. PAIN IS THE ONLY SYMPTOM, NO ODER OR FOUL DRAINAGE. RECOMMENDATIONS; PACK ALL WOUNDS WITH IODOFORM GAUZE,COVER WITH XEROFORM,COVER WITH ABD/TAPE RN PRESENT
--- NOTE | 2020-02-29 15:51 | NUR ---
VAT CONSULTED TO REPLACE A CL THAT PT PULLED OUT OF HER RT IJ. PT IS CONFUSED, EDEMETOUS, NEEDS TPN, HAS MULTIPLE WOUNDS AND WILL MOST LIKELY TO NEED A TICC FOR LT ABX IN A FACILITY. PLACED A PIV FOR PPN AND ABX FOR OVERNIGHT AND CONSULTED IR FOR A TICC FOR RIGGER UP NEEDS. RN AND DR OSPINA ADVISED.
--- NOTE | 2020-02-29 18:12 | NUR ---
PT ALERT AND ORIENTED TIMES TWO. BP ELEVATED PRN MEDICATIONS GIVEN TWICE THIS SHIFT. OTHER VSS, PPN INFUSING PER ORDER, SMALLS TO DD. DRESSING TO BLE AND LEFT THUMB CHANGED PER THIS NURSE AND WOUND CARE. PT C/O PAIN PRN MEDIACTIONS GIVEN WITH SOME RELEIF. PT DENIES SOA. SPOKW WITH PT DAUGHTER TODAY AND UPDATED ON CARE.
--- NOTE | 2020-03-01 04:36 | NUR ---
ASSUMED PT CARE AT 1900. PT IS DROWSY. NO SIGN OF DISTRESS NOTED IN PT. PT IS SLEEPING FOR THE MOST PART. PT WAKES UP WITH GENERALIZED PAIN. PAIN MED ADMINISTERED TO PT. ASSESSMENT COMPLETED AND DOCUMENTED. NO SIGN OF DISTRESS NOTED IN PT. PT IS NPO. CALL LIGHT WITHIN REACH. VITAL SIGN STABLE. CONTINUE TO MONITOR PT. DENIES ANY FURTHER NEEDS AT THIS TIME.
[2020-03-01 06:05] LABS: HEMOGLOBIN 7.8 gm/dL (12.0-15.0); MCH 30.7 pg (26.0-34.0); MCHC 33.9 g/dL (28.0-37.0); MCV 90.5 fL (80.0-100.0); RBC 2.54 mil/uL (4.20-5.00); RDW 16.3 % (10.5-14.5)
[2020-03-01 06:29] LABS: ALBUMIN 1.8 g/dL (3.4-5.0); CALCIUM 7.7 mg/dL (8.5-10.1); CREATININE 1.2 mg/dL (0.6-1.0); PHOSPHORUS 3.7 mg/dL (2.5-4.9); POTASSIUM 4.5 mmol/L (3.5-5.1)
[2020-03-01 11:15] VITALS: BP 176/101
[2020-03-01 13:20] VITALS: BP 159/79
--- NOTE | 2020-03-01 13:28 | NUR ---
Case discussed with the care team. Pt remains npo with ST eval pending, BEL pending, IV atb, and PT/OT evals. Mulitple specialists involved: ID,Renal,Wound Care, and neuro. Pt unable to talk on the phone d/t weakness and confusion. Dtr Lea contacted for support and ongoing dc planning. Pt will likely need either acute rehab or snf at dc. Lea in agreement. 5N eval in progress. She has been to snf at [facility] in the past also. Lea reports she is touching base with the nursing staff daily. Support provided. Will follow.
[2020-03-01 15:15] VITALS: BP 157/87
--- NOTE | 2020-03-01 18:02 | NUR ---
ASSUMED CARE AT SHIFT CHANGE, ALERT TO SLEF ONLY AND DRAWSY THIS MORNING. BP ELEVATED NEW MED ORDER, AND PRN GIVEN WITH BETTER BP READING. ASSESSMENTS DOCUMENTED. ANXIUOS AND KEPT C/O BEING SOB, LUNGS ARE CLEAR AND O2 REMAINS ABOVE 95%, MEDICATED AND RESTED FOR COUPLE OF HOURS. AND WILL CONTINUE WITH POC.
[2020-03-01 19:45] VITALS: BP 183/84
[2020-03-02 00:16] VITALS: BP 147/75
[2020-03-02 04:20] VITALS: BP 174/82
--- NOTE | 2020-03-02 04:43 | NUR ---
ASSUMED PT CARE AT 1900. PT IS DROWSY. NO SIGN OF DISTRESS NOTED IN PT. CONTINUE TO MONITOR. PT VERBALIZES PAIN. PAIN MED ADMINISTERED TO PT. FALL PRECAUTION IN PLACE. CALL LIGHT WITHIN REACH. SCHEDULED MEDS ADMINISTERED TO PT. TOLERATED PO INTAKE. PT IS NPO AFTERM MN. PT IS STABLE THROUGHOUT THE NIGHT. ELEVATED BLOOD PRESSURE NOTED WITH VITAL SIGNS. HYDRALAZINE ADMINISTERED. BLOOD PRESSURE LOWERED WITH RECHECK. CONTINUE TO MONITOR. NO FURTHER NEEDS AT THIS TIME.
[2020-03-02 06:16] LABS: HEMOGLOBIN 7.7 gm/dL (12.0-15.0); MCH 30.4 pg (26.0-34.0); MCHC 33.7 g/dL (28.0-37.0); MCV 90.2 fL (80.0-100.0); RBC 2.55 mil/uL (4.20-5.00); RDW 16.3 % (10.5-14.5); WBC 7.9 thou/uL (4.0-11.0)
[2020-03-02 07:08] LABS: CALCIUM 7.7 mg/dL (8.5-10.1); CREATININE 1.1 mg/dL (0.6-1.0); MAGNESIUM 1.9 mg/dL (1.8-2.4); POTASSIUM 4.1 mmol/L (3.5-5.1)
--- NOTE | 2020-03-02 08:07 | NUR ---
PATIENT SEEN BY DR. MIRANDA ON 03/01/20 FOR REHAB CONSULT. PATIENT MAY POSSIBLY BE A CANDIDATE FOR ACUTE REHAB STAY. PATIENT HAS QUALIFYING DIAGNOSIS BUT IS CURRENTLY VERY LOW LEVEL FUNCTIONALLY AND TOLERANCE NEEDS TO IMPROVE. ACUTE REHAB/5N WILL CONTINUE TO FOLLOW. PATIENT HAS MEDICARE REPLACEMENT PLAN, SO WILL NEED AUTHORIATION IF ACCEPTED FOR REHAB STAY.
--- NOTE | 2020-03-02 09:12 | NUR ---
PT TRANSFERRED BACK TO CCU. REPORT TO MEGAN. MARCUS. TOLERATED BEL WELL
--- NOTE | 2020-03-02 09:28 | TEE ---
[facility] [place] [address] TRANSESOPHAGEAL ECHOCARDIOGRAM Name: PRITESH KILPATRICK Room #: 205-P ADM IN M.R.#: [id number] Admission: 02/23/20 Attend Phys: Hubert Solomon MD Discharge: Date of : 55 Report #: [id number] THIS REPORT FOR: cc: Apryl Lemon MD, Pamela M. MD Lundgren, Craig H. MD [facility] ~ APPROVED REPORT Study performed: 03/02/2020 07:52:50 EXAM: Comprehensive 2D, Doppler, and color-flow Echocardiogram Patient Location: Room #: [facility] Status: routine BSA: 1.95 HR: 96 bpm BP: 170/86 mmHg Rhythm: NSR Other Information Study Quality: Excellent Indications Mitral Valve Disease Echo Enhancing Agent Indication: Rule out Shunt Agent(s) / Amount(s) Used: Agitated Saline 7 cc Procedure After obtaining informed consent, patient underwent transesophageal echo in the [facility]. Type of Sedation : Conscious Sedation Sedation was administered by Nurse. Sedation was achieved intravenously with: Versed (3 mg) Fentanyl (50 mcg) Transesophageal probe was inserted and advanced into esophagus without difficulty by Dejuan Mays MD. Echo enhancement indication: R/O Septal defect. Echo enhancement agent administered: Agitated Saline The BEL was performed without complications. Throughout the procedure, the blood pressure, pulse oximetry, cardiac rhythm, and rate were monitored. [facility] [address] [place] [address] TRANSESOPHAGEAL ECHOCARDIOGRAM Name: PRITESH KILPATRICK Room #: 205-P [facility] IN M.R.#: [id number] Admission: 02/23/20 Attend Phys: Hubert Solomon, Discharge: Date of : 55 Report #: [id number] The patient tolerated the procedure without adverse effects. Recovery from conscious sedation was uneventful and vital signs were stable. Left Ventricle The left ventricle is normal size. There is normal LV segmental wall motion. There is normal left ventricular wall thickness. The left ventricular systolic function is normal. The left ventricular ejection fraction is within the normal range. LVEF is 55-60%. Right Ventricle The right ventricle is normal size. The right ventricular systolic function is normal. Atria Left atrium is dilated. No thrombus is visualized in the left atrium or appendage. No shunting by contrast bubble injection Right atrium is dilated. Aortic Valve The aortic valve is normal in structure, trileaflet No aortic regurgitation is present. There is no aortic valvular stenosis. Mitral Valve The mitral valve is normal in structure. Mild mitral regurgitation. No evidence of mitral valve stenosis. Tricuspid Valve The tricuspid valve is normal in structure. Mild to moderate tricuspid regurgitation. Pulmonic Valve The pulmonary valve is normal in structure. There is no pulmonic valvular regurgitation. Great Vessels The aortic root is normal in size. IVC is normal in size and collapses >50% with inspiration. Pericardium Small circumferential pericardial effusion. Critical Notification Physician Notified [facility] [address] [place] [address] TRANSESOPHAGEAL ECHOCARDIOGRAM Name: PRITESH KILPATRICK Room #: 205-P ADM IN M.R.#: [id number] Admission: 02/23/20 Attend Phys: Hubert Solomon, Discharge: Date of : 55 Report #: [id number] <Conclusion> The left ventricular systolic function is normal. There is normal LV segmental wall motion. LVEF is 55-60%. Both atria are dilated. No thrombus is visualized in the left atrium or appendage. No shunting by contrast bubble injection The aortic valve is normal in structure, trileaflet. No aortic regurgitation or stenosis The mitral valve is normal in structure. Mild mitral regurgitation. Small circumferential pericardial effusion. No vegetations <ELECTRONICALLY SIGNED> By: Dejuan Mays MD, FACC 03/02/20925 5 5 Dejuan Mays MD, FACC /INF
[2020-03-02 11:02] VITALS: BP 156/73
[2020-03-02 11:07] LABS: TSH 2.681 uIU/mL (0.358-3.740)
[2020-03-02 11:30] VITALS: BP 167/91
--- NOTE | 2020-03-02 14:30 | NUR ---
Nutrition: pt eating very little > 1 week. REC increase PPN to 100 mL/hr and add 250 mL 20% lipids daily til pt eating or consider DH tube for enteral nutrition
[2020-03-02 15:20] VITALS: BP 149/72
[2020-03-02 17:08] LABS: BODY FLUID PROTEIN 3.9 g/dL (())
--- NOTE | 2020-03-02 18:22 | NUR ---
ASSUMED CARE AT CHANGE OF SHIFT. PT LEFT UNIT FOR BEL AT MORNING SHIFT CHANGE. BEL COMPLETE SEE REPORT. ALERT X4, WITH MINIMAL CONFUSION. PAIN MANAGED WITH MEDICATION. SLEEPY MOST OF MORNING. WOUND DOCTOR VERBLIZED WOUNDS ARE SHOWING IMPROVMENT. ADJUSTED SMALLS. INCONTINET LOOSE BM TODAY. UP TO BEDSIDE CHAIR WITH PT AND OT. NO MORNING OR NOON MEAL INTAKE. 30% DINNER. EDUCATED PT IMPORTANCE OF EATING. COG-EVAL TODAY. PT COMPLAINT WITH CARES. PT LIKE DC TO REHAB. MRI TOMORROW. CALLS FOR ASSISTANCE. PERSONAL ITEMS IN REACH.
[2020-03-02 19:40] VITALS: BP 159/82
[2020-03-03 05:20] VITALS: BP 156/81
--- NOTE | 2020-03-03 07:23 | NUR ---
ASSUME CARE 1900. PT/VITALS STABLE. INTERMITTENT ABDO PAIN WITH MODERATE RELIEF FROM WILBERTO MEDICATION. SR ON MONITOR. NO DISTRESS THROUGH THE NIGHT. ASSESSMENT CHARTED. PROGRESSING MODERATELY WITH POC. PLAN IS TO CONTINUE WITH ANTIBIOTICS WELL PT/OT, WILL CONTINUE TO MONITOR AND FOLLOW WITH POC
[2020-03-03 07:40] VITALS: BP 177/85
--- NOTE | 2020-03-03 08:52 | NUR ---
ASSUMED CARE OF PT AT SHIFT CHANGE, A&0X4, SOMETIMES SLOW TO RESPOND. PHYSICIAN ENCOURAGES HER TO SEEK POSSIBLE SURGEON FOR HER BACK DIAGNOSTIC RESULTS FOR HER PAIN/WALKING. PT STATES SHE IS DISABLED AND USES A WALKER. QUIET SPOKEN. SEE SEPARATE INTERVENTIONS FOR ASSESSMENTS, CARDIAC MONITORED, HAS SCATTERED EMANUEL BRUISING ON BUECRISTIANEY TO DD. WILL CONTINUE TO MONITOR. HAS 02 NC ON YET SATS ARE FINE; SHE INSISTS ON WEARING SHE'S CONGESTED. AGAIN, GENTLE EDUCATION GIVEN ON LACK OF NEED AND DEMO GIVEN ON DEEP SLOW EFFECTIVE BREATHING AND FACT SHE WON'T LEAVE WITH THE 02 WHICH CAN CAUSE PROBLEMS. WILL CONTINUE TO MONITOR
[2020-03-03 11:37] VITALS: BP 180/92
[2020-03-03 16:05] VITALS: BP 181/81
[2020-03-03 19:20] VITALS: BP 153/69
[2020-03-04 04:00] VITALS: BP 191/99
[2020-03-04 07:40] VITALS: BP 174/98
--- NOTE | 2020-03-04 08:14 | NUR ---
ASSUMED CARE OF PT AT SHIFT CHANGE; STATES SHE DIDN'T GET ANY SLEEP SINCE 0200; HAD ANXIETY, TRIES TO PUT ON 02 WHEN SATS ARE 98%, BREATHES SHALLOW AND FAST AND WILL COMPLY WITH DEMO OF SLOW EFFECTIVE BREATHING. A&0X4, SLIGHTLY FORGETFUL. COMLAINS OF BOREDOM YET SITS IN THE DARK, WANTS BLINDS PULLED. LIKES ANIMAL SHOWS; GAVE HER TV GUIDE AND ENCOURAGED HER TO DO MORE FOR HERSELF. DRESSING CHANGES ON BLE, CHRONIC SEVERE BACK PAIN, PUT THE TIME ON BOARD WHEN SHE'S ABLE TO CALL FOR MORE PAIN RELIEF SHOULD SHE NEED IT. SEE SEPARATE INTERVENTIONS FOR ASSESSMENTS. ENCOURAGED HER TO CALL FOR ANY NEEDS
[2020-03-04 11:50] VITALS: BP 164/90
[2020-03-04 11:50] LABS: HEMOGLOBIN 6.9 gm/dL (12.0-15.0); MONOCYTES 4.8 % (1.0-8.0); WBC 7.3 thou/uL (4.0-11.0)
[2020-03-04 11:54] LABS: ABSOLUTE NEUTROPHILS 5.6 thou/uL (1.4-8.2); BASOPHILS 0.5 % (0.0-2.0); EOSINOPHILS 2.1 % (0.0-3.0); HEMATOCRIT 20.6 % (37.0-47.0); LYMPHOCYTES 15.7 % (24.0-44.0); MCH 30.3 pg (26.0-34.0); MCHC 33.5 g/dL (28.0-37.0); MCV 90.5 fL (80.0-100.0); PLATELET COUNT 168 thou/uL (150-400); POLYS 76.9 % (36.0-66.0); RBC 2.27 mil/uL (4.20-5.00); RDW 16.8 % (10.5-14.5)
[2020-03-04 12:02] LABS: ALBUMIN 1.8 g/dL (3.4-5.0); ANION GAP 5 mmol/L (7-16); BUN 32 mg/dL (7-18); CHLORIDE 100 mmol/L (98-107); CO2 27 mmol/L (21-32); CREATININE 1.2 mg/dL (0.6-1.0); GLUCOSE 82 mg/dL (74-106); MAGNESIUM 1.4 mg/dL (1.8-2.4); PHOSPHORUS 3.8 mg/dL (2.5-4.9); POTASSIUM 4.9 mmol/L (3.5-5.1); SGOT 16 U/L (15-37); SODIUM 132 mmol/L (136-145); TOTAL BILIRUBIN 0.4 mg/dL (0.2-1.0); TOTAL PROTEIN 6.3 g/dL (6.4-8.2)
[2020-03-04 12:03] LABS: SGPT < 6 U/L (30-65)
[2020-03-04 15:31] LABS: HEMATOCRIT 20.7 % (37.0-47.0); HEMOGLOBIN 6.9 gm/dL (12.0-15.0); MCH 30.6 pg (26.0-34.0); MCHC 33.4 g/dL (28.0-37.0); MCV 91.5 fL (80.0-100.0); OBSERVED RETIC COUNT 2.99 % (0.6-2.6); RBC 2.26 mil/uL (4.20-5.00); RDW 16.5 % (10.5-14.5); WBC 7.1 thou/uL (4.0-11.0)
[2020-03-04 15:35] LABS: % SATURATION 6 % (20-39); IRON 13 ug/dL (50-170); TIBC 202 ug/dL (250-450)
[2020-03-04 16:20] VITALS: BP 182/105
[2020-03-04 16:39] VITALS: BP 173/91; BP 178/88
[2020-03-04 18:37] VITALS: BP 165/81
[2020-03-05 00:33] LABS: ABSOLUTE NEUTROPHILS 6.6 thou/uL (1.4-8.2); BASOPHILS 0.7 % (0.0-2.0); EOSINOPHILS 2.8 % (0.0-3.0); HEMOGLOBIN 8.9 gm/dL (12.0-15.0); MCH 30.8 pg (26.0-34.0); MCHC 34.2 g/dL (28.0-37.0); MCV 89.9 fL (80.0-100.0); MONOCYTES 3.5 % (1.0-8.0); PLATELET COUNT 222 thou/uL (150-400); RBC 2.89 mil/uL (4.20-5.00); RDW 16.2 % (10.5-14.5); WBC 8.3 thou/uL (4.0-11.0)
[2020-03-05 04:36] VITALS: BP 177/91
--- NOTE | 2020-03-05 04:45 | NUR ---
ASSUMED CARE OF PATIENT AT 1900. PATIENT REQUESTED PAIN MEDICATION THROUGHOUT NIGHT OFTEN RATING PAIN 7 OR ABOVE. PATIENT STATED HER PAIN WAS ALL OVER. ADMINISTERED OXYCODONE ORDERED. PATIENT REPORTED THAT PAIN MEDICATION DID PROVIDE SOME RELIEF. PATIENT REMOVED CPDOA6Y PERIODICALLY THROUGHOUT NIGHT. OXYGEN SATURATIONS STILL REMAINED ABOVE 92%. PATIENT IS PROGRESSING WELL TOWARDS GOALS.
[2020-03-05 05:32] LABS: CALCIUM 8.2 mg/dL (8.5-10.1); CREATININE 1.2 mg/dL (0.6-1.0); POTASSIUM 4.6 mmol/L (3.5-5.1)
[2020-03-05 07:40] VITALS: BP 178/82
[2020-03-05 11:20] VITALS: BP 144/80
--- NOTE | 2020-03-05 12:11 | NUR ---
spoke with Levi barroso who reports plan to review therapy evals this afternoon and will have decision today if a candidate for Levi.
[2020-03-05 15:45] VITALS: BP 178/98
--- NOTE | 2020-03-05 16:55 | NUR ---
PT CARE ASSUMED APPROX 0700. ASSESSMENTS CHARTED. PT DENIES SOA. WEANED TO RA. REPORTS ADEQUATE PAIN MANAGEMENT OF BLE AND NECK. VSS. UP TO CHAIR BRIEFLY WITH P/T. PT UNMOTIVATED TO EAT OR MOBILIZE. EDUCATED. TURNING Q2 HRS AND PRN. WOUND CARE TO BE COMPLETED ORDERED. MAG REPLACED. PT TOLERATING POC. NO DISTRESS NOTED.
--- NOTE | 2020-03-05 16:58 | NUR ---
5n is accepting of patient clinically. They need to seek auth and pending bed avail may not be until Thurs/Fri
--- NOTE | 2020-03-05 18:00 | NUR ---
PATIENT HAS NOW BEEN SEEN BY THERAPY. DR. MIRANDA HAS REVIEWED UPDATED PATIENT INFORMATION AND FEELS PATIENT IS A CANDIDATE TO COME TO ACUTE REHAB, PENDING AUTHORIZATION AND BED AVAILABILITY. WILL CONTINUE TO FOLLOW. POTENTIAL ACUTE HOSPITAL DISCHARGE DATE NOT KNOWN AT THIS TIME. WEB SITE MANAGER INFORMED OF ABOVE.
[2020-03-05 19:48] VITALS: BP 163/100
[2020-03-06 04:29] VITALS: BP 186/95
--- NOTE | 2020-03-06 05:51 | NUR ---
ASSUMED CARE OF PATIENT AT 1900. PATIENT CONTINUES ON ROOM AIR. OXYGEN SATURATION MAINTAINED IN UPPER 90s. PATIENT DID COMPLAIN OF LOOSE COUGH AND DESCRIBED PRODUCING A SMALL AMOUNT OF LIGHT BROWN SPUTUM. THIS WAS NOT OBSERVED BY NURSE. PATIENT DID C/O PAIN AT INITIAL ASSESSMENT. ADMINISTERED PRN PAIN MEDS ORDERED. PATIENT STATED IT WAS EFFECTIVE. AT LAST ASSESSMENT PATIENT RATED PAIN 3/10 AND STATED IT WAS TOLERABLE. BLOOD SUGAR AT HS WAS 78. PATIENT HAS HISTORY OF HYPOGLYCEMIA. GAVE HS MEDS WITH OJ. PATIENT DRANK WITHOUT ISSUE. PATIENT ALSO HAD A SNACK DURING THE NOC. PATIENT APPEARS TO BE PROGRESSING TOWARDS GOALS.
[2020-03-06 07:10] VITALS: BP 149/76
[2020-03-06] MEDS ORDERED: FOLIC ACID1 MG PO (07:57)
[2020-03-06] MEDS ORDERED: CLONIDINE1 EAC1 TRANSDERM (07:57)
[2020-03-06] MEDS ORDERED: METOPROLOL TART25 MG PO (07:57)
[2020-03-06 09:14] LABS: HEMATOCRIT 24.9 % (37.0-47.0); HEMOGLOBIN 8.4 gm/dL (12.0-15.0)
--- NOTE | 2020-03-06 12:35 | O ---
[facility] [place] [address] OPERATIVE REPORT Name: PRITESH KILPATRICK Room #: 205-P [facility] IN M.R.#: [id number] Admission: 02/23/20 Attend Phys: Hubert Solomon MD Discharge: Date of : 55 Report #: [id number] THIS REPORT FOR: cc: Apryl Lemon MD,Santos Lorenz MD, MD ~ CC: Hubert Lemon DATE OF SERVICE: 02/25/2020 PREOPERATIVE DIAGNOSES: 1. Right prepatellar bursitis, infected. 2. Left and right leg abscesses. 3. Right thumb abscess. POSTOPERATIVE DIAGNOSES: 1. Right prepatellar bursitis, infected. 2. Left and right leg abscesses. 3. Right thumb abscess. PROCEDURES: 1. Left knee irrigation and debridement of the prepatellar bursa. 2. Bilateral leg irrigation and debridement of subcutaneous abscesses. 3. Right hand irrigation and debridement, dorsal thumb abscess. [place] [address] for the right prepatellar bursa irrigation and debridement, 45330 for the multiple subcutaneous abscesses and 12703 for the finger abscess. SURGEON: Dr. Santos Weiner. ANESTHESIA: General. ESTIMATED BLOOD LOSS: 10 mL. DRAINS: The wounds were packed with iodoform gauze. COMPLICATIONS: There were no complications. DESCRIPTION OF PROCEDURE: The patient brought to the operating room where she was placed under general anesthesia. Once under adequate general anesthesia, her right hand was attended to first. The necrotic abscess at dorsal to her interphalangeal joint of her thumb was then excised with a 15 blade. This was then debrided copiously with normal saline solution, packed with a sterile gauze and wrapped with Carmel dressing then attended the right lower extremity and the prepatellar bursa was incised, 3 cm in length, open with purulent material extending from it, this was then irrigated copiously with pulsatile lavage with [facility] [address] [place] [address] OPERATIVE REPORT Name: PRITESH KILPATRICK BOBBY Room #: [address] [place] [address] [place] [facility].#: [id number] Admission: 02/23/20 Attend Phys: Hubert Solomon MD Discharge: Date of : 55 Report #: [id number] normal saline solution. Similarly, a 3 cm incision was made distally over a subcutaneous abscess, which was incised, opened, drained and irrigated copiously with normal saline, pulsatile lavage. We then attended the left lower extremity where the 2 areas of abscesses were irrigated copiously with pulsatile lavage. The leg wounds were all closed loosely with a single 2-0 nylon suture and packed with iodoform gauze. The wounds were dressed with 4 x 4s, and Kerlix afterwards. There were no complications from the procedure. The patient tolerated the procedure well and went to the recovery room without incident. <ELECTRONICALLY SIGNED> By: Santos Weiner MD 03/06/20 1235 1625 1703 Santos Weiner MD /nt
--- NOTE | 2020-03-06 12:36 | O ---
[facility] [address] [place] [address] OPERATIVE REPORT Name: PRITESH KILPATRICK Room #: 205-P ADM IN M.R.#: [id number] Admission: 02/23/20 Attend Phys: Hubert Solomon MD Discharge: Date of : 55 Report #: [id number] THIS REPORT FOR: cc: Apryl Lemon MD,Santos Lorenz MD, MD ~ CC: Hubert Lemon DATE OF SERVICE: 02/25/2020 Please change the dictated date of service from 02/23/2020 to 02/25/2020 on the dictated operative report for her multiple infected abscesses and bursa. <ELECTRONICALLY SIGNED> By: Santos Weiner MD 03/06/20 1236 0910 0915 Santos Weiner MD /nt
[2020-03-06 12:50] VITALS: BP 179/94
--- NOTE | 2020-03-06 14:31 | NUR ---
Nutrition: Pt with very little oral intake over admit despite interventions. PPN has now D/C'ed. REC start mirtazapine or megace for appetite stimulation. If no plans for rehab transfer would suggest restart PPN. Otherwise may need to consider supplemental tube feeds due to inadequate intake nearly 2 weeks.
[2020-03-06 16:50] VITALS: BP 181/92
--- NOTE | 2020-03-06 16:58 | NUR ---
spoke with sister Jackelyn regarding 5n/skilled. Sister reports patient would be concerned with transfer to [facility] due to COVID 19. Discussed patient reports she cannot tolerate 3 hours of therapy and sister reports not now necessarily but possibly. Sister reports patient still rec tests today and running fever so not ready for 5n. 5n to review in am. Bed avail for 5n not until Thursday this week. They also must submit for auth.
[2020-03-06 17:40] VITALS: BP 137/66
--- NOTE | 2020-03-06 18:01 | NUR ---
PT CARE ASSUMED APPROX 0700. ASSESSMENTS CHARTED. PT DENIES SOA. REPORTS PAIN CONSTANTLY. MANAGING PAIN MEDS ALLOW. PAIN MEDS ADJUSTED TODAY. PT UNMOTIVATED TO EAT OR MOBILIZE. PT EDUCATED BUT UNMOTIVATION REMAINS UNCHANGED. CLINICAL UPDATE GIVEN TO PT'S SISTER IN LAW. SISTER IN LAW IS AWARE THAT PT IS SELF LIMITING. URINARY CATH REMOVED WITHOUT ISSUE. PT VOIDING WITH EXT CATH. DR OSPINA AND DR SPICER WERE BOTH NOTIFIED OF PT'S ELEVATION IN TEM[place]. FEVER BEING MANAGED WITH ANTIPYRETIC. ORDERS FOLLOWED. TURNING PT Q2 HRS AND PRN WHEN SHE ALLOWS. TOLERATING POC. NO DISTRESS NOTED.
[2020-03-06 18:11] LABS: URINE BILIRUBIN NEGATIVE (Negative); URINE BLOOD 2+ (Negative); URINE CLARITY CLEAR; URINE COLOR YELLOW; URINE GLUCOSE-RANDOM* NEGATIVE (Negative); URINE KETONES NEGATIVE (Negative); URINE LEUKOCYTES-REFLEX NEGATIVE (Negative); URINE NITRITE-REFLEX NEGATIVE (Negative); URINE PROTEIN (DIPSTICK) NEGATIVE (Negative); URINE UROBILINOGEN 0.2 E.U./dl (0.2-1.0)
[2020-03-06 18:42] LABS: SQUAMOUS 4-10 Moderate /LPF (0-3)
[2020-03-06 18:43] LABS: URINE RBC 3-10 Few /HPF (0-2); URINE WBC-REFLEX 0-5 Rare /HPF (0-5); YEAST-REFLEX Present (None Seen)
[2020-03-06 18:44] LABS: BACTERIA-REFLEX None Seen /HPF (None Seen); CASTS None Seen /LPF (None Seen); CRYSTALS None Seen /LPF (None Seen)
[2020-03-06 20:36] VITALS: BP 121/68
[2020-03-07 03:20] VITALS: BP 146/77
--- NOTE | 2020-03-07 04:58 | NUR ---
ASSUMED CARE OF PATIENT AT 1900. PATIENT CONITUES ON ROOM AIR WITH OXYGEN SATURATIONS IN THE 90s. NO COMPLAINTS OF SOA. PATIENT REQUEST PAIN MEDICATION ONCE DURING SHIFT. ALSO APPLIED WARM BLANKET TO BACK TO HELP ALLEVIATE BACK PAIN. AT 0034 PATIENT REPORTED HAVING CHILLS AND FEELING WARM TO TOUCH. TEMPERATURE WAS 99.2. PATIENT HAD JUST RECEIVED HYDRO/APAP ALSO REMOVED BLANKETS. AT 0130 TEMPERATURE WAS 98.9. AT 0320 TEMPERATURE WAS 99.1. DECREASED ROOM TEMPERATURE. POST VOID BLADDER SCAN REVEALED 34 CC. WILL CONTINUE TO MONITOR
[2020-03-07 05:45] LABS: ABSOLUTE NEUTROPHILS 2.6 thou/uL (1.4-8.2); BASOPHILS 1.8 % (0.0-2.0); EOSINOPHILS 5.7 % (0.0-3.0); HEMATOCRIT 24.2 % (37.0-47.0); HEMOGLOBIN 8.2 gm/dL (12.0-15.0); LYMPHOCYTES 28.3 % (24.0-44.0); MCH 30.4 pg (26.0-34.0); MCHC 33.7 g/dL (28.0-37.0); MCV 90.2 fL (80.0-100.0); MONOCYTES 9.5 % (1.0-8.0); PLATELET COUNT 274 thou/uL (150-400); POLYS 54.7 % (36.0-66.0); RBC 2.68 mil/uL (4.20-5.00); RDW 15.7 % (10.5-14.5); WBC 4.7 thou/uL (4.0-11.0)
[2020-03-07 06:00] LABS: ALBUMIN 1.8 g/dL (3.4-5.0); CALCIUM 8.4 mg/dL (8.5-10.1); CREATININE 1.1 mg/dL (0.6-1.0); MAGNESIUM 1.6 mg/dL (1.8-2.4); POTASSIUM 4.5 mmol/L (3.5-5.1); TOTAL BILIRUBIN 0.4 mg/dL (0.2-1.0); TOTAL PROTEIN 6.6 g/dL (6.4-8.2)
--- NOTE | 2020-03-07 07:38 | NUR ---
NO BED AVAILABLE FOR 5N AT THIS TIME. BED NOT AVAILABLE FOR UNTIL MARCH 09. SOCIOLOGY PROFESSOR SPOKE WITH PATIENT ON 03/06/20 REGARDING ACUTE REHAB AND NEED TO PARTICIPATE IN 3 HOURS OF THERAPY A DAY. PATIENT UNABLE TO DECIDE AT THE TIME IF PATIENT WANTED TO GO TO ACUTE REHAB. SPOKE WITH ARCHEOLOGIST ABOUT TOLERANCE/PARTICIPATION DISCUSSION WITH PATIENT. THERAPY WILL SEE PATIENT TODAY AND FURTHER EVALUATION OF APPROPRIATENESS WILL BE MADE. IF PATIENT IS TO BE ADMITTED, INSURANCE AUTHORIZATIO WILL NEED TO BE OBTAINED. SOCIOLOGY PROFESSOR ALSO SPOKE WITH ARCHEOLOGIST REGARDING POSSIBLE ASSISTANCE NEEDS FOR PATIENT AT DISCHARGE. ARCHEOLOGIST TO SPEAK WITH FAMILY.
[2020-03-07 08:00] VITALS: BP 170/81
[2020-03-07 11:26] VITALS: BP 150/73
[2020-03-07 16:01] VITALS: BP 122/55
--- NOTE | 2020-03-07 16:16 | NUR ---
5N cont to follow. Patient voiced concerns regarding care left message with Patient experience coordinator. 5N reports they want to eval how patient participated with therapy in am. Fever yesterday, blood cultures pending. casemgt following.
--- NOTE | 2020-03-07 16:16 | NUR ---
PATIENT DECLINED OT SESSION TODAY AND DECLINED ACTIVITIES ATTEMPTED WITH PHYSICAL THERAPY, ALTHOUGH DID DO BED LEVEL EXERCISES. TURPENTINE DISTILLER SPOKE WITH PATIENT ABOUT THE NEED TO GET INSURANCE AUTHORIZATION FOR PATIENT TO ADMIT TO ACUTE REHAB AND THAT PATIENT PARTICIPATION IN REHAB SESSIONS WAS VERY IMPORTANT FACTOR IN GETTING AUTHORIZATION. PATIENT EXPRESSED CONCERNS ABOUT HER MEDICAL STATUS AND ABOUT HER MEDICAL NEEDS NOT BEING ADDRESSED. THESE CONCERNS WERE SHARED WITH HER NURSE, JAMES. ALSO SHARED WITH BAND REAMER MACHINE OPERATOR. NAVIN IS TO REACH OUT TO GISELLE, PATIENT ADVOCATE, TO HELP LISTEN TO CONCERNS AND ADDRESS FOR PATIENT. WILL CONTINUE TO FOLLOW AND SEE HOW PATIENT DOES IN THERAPIES TOMORROW. IF PATIENT'S PARTICIPATION IMPROVES, AUTHORIZATION CAN BE REQUESTED FOR ACUTE REHAB STAY.
--- NOTE | 2020-03-07 17:20 | NUR ---
PT CARE ASSUMED APPROX 0700. ASSESSMENTS CHARTED. PT DENIES SOA. REPORTS CHRONIC PAIN TO BACK AND INTERMITTENT ACUTE PAIN TO BLE. MANAGING PAIN MEDS ALLOW. TURNING PT Q2HRS WHEN SHE ALLOWS. WOUNDS PHOTOGRAPHED AND DSGs CHANGED PER ORDER. RIGHT BREAST FOLD WOUND HAS HEALED. PT TOLERATING POC. TEARFUL THIS EVENING. PT EDUCATED ON POC AND HOW TO IMPROVE CLINICAL ISSUES WITH MOBILITY AND NUTRITION. MESSAGE WAS LEFT FOR A FAMILY HELPER TO VISIT WITH PT WHEN AVAILABLE. APPETITE POOR. PHYSICIAN/ALLERGY/IMMUNOLOGY EDUCATED PT AGAIN. NO DISTRESS NOTED.
--- NOTE | 2020-03-07 18:06 | EEG ---
[facility] [place] [address] ELECTROENCEPHALOGRAM Name: PRITESH KILPATRICK Room #: 205-P ADM IN M.R.#: [id number] Admission: 02/23/20 Attend Phys: Hubert Solomon MD Discharge: Date of : 55 Report #: [id number] THIS REPORT FOR: //name// CC: Hubert Pink [facility] DATE OF SERVICE: 02/28/2020 This patient is being evaluated for altered mental status. EEG was done by placing the electrode by standard 10-20 system of electrode placement. Both referential and sequential montages were used for recording. Background activity in this patient's EEG is about 6-7 Hz and 30 microvolt. It is a symmetrical activity. Photic stimulation is unremarkable. The patient became drowsy and that is associated with bilateral slowing and vertex sharp waves. Throughout the record, no active epileptiform activity was noticed. IMPRESSION: This is an abnormal EEG because it is disorganized and poorly formed. That finding can occur with encephalopathy. However, clinical correlation is recommended. <ELECTRONICALLY SIGNED> By: Amandeep Kline MD 03/07/20 1806 [id number] Amandeep Kline MD /nt
--- NOTE | 2020-03-07 18:06 | HC ---
[facility] [place] [address] CONSULTATION Name: PRITESH KILPATRICK Room #: 205-P ADM IN M.R.#: [id number] Admission: 02/23/20 Attend Phys: Hubert Solomon MD Discharge: Date of : 55 Report #: [id number] THIS REPORT FOR: cc: Apryl Lemon MD,Amandeep Olivares MD, MD ~ CC: Hubert Lemon DATE OF SERVICE: 02/27/2020 HISTORY OF PRESENT ILLNESS: This is a 64-year-old female patient who was seen by me today. I talked to the referring physician and I talked to the nurses looking after this patient. This patient has multiple comorbidities. She has a history of asthma, anemia, history of rheumatic fever, anxiety, depression, severe osteoporosis, diverticulitis. It looks like she was septic. It would appear that she was encephalopathic. She also appeared to have myalgias, body aches, acute kidney injuries and she is being followed by multiple consultants including ID. On my examination later on today, she is extremely confused and that is what the consultation is requested as well as the finding on the CT. REVIEW OF SYSTEMS: All 14-point review of system was carried out and other consultants' note was seen and will not be repeated here. The patient has numerous medical problems. Neurologically, she is pretty dysarthric and is not able to talk properly and she does not even follow simple command, although she says a few things. PAST MEDICAL HISTORY: From the patient and we will see if some other family member is there. It looks like is positive for multiple things like hypertension, coronary artery disease, etc. SOCIAL HISTORY: Apparently, she is a nonsmoker. PHYSICAL EXAMINATION: Pretty limited. She has very dysarthric speech. She is able to see if say a few words and I can understand, but she does not follow simple commands. When I asked her what month it is, she does not tell me what month it is. She does not know what hospital she is in. When I asked her to smile, she looks like has facial diplegia. I noticed some movements of all 4 extremities, but she did not cooperate at all to do the strength, sensory or other testing. She did have a CT and MRI and they were both reviewed and that does not show any abnormality, which can explain the patient's symptom. Her blood pressure is 128/74, respiration is 12, pulse is 80, temperature is 99.3. LABORATORY DATA: Her white count is 4 and her glucose has been running pretty low according to the nurses and according to the records. Last creatinine was 2. [facility] [address] [place] [address] CONSULTATION Name: PRITESH KILPATRICK Room #: 205-P ADM IN M.R.#: [id number] Admission: 02/23/20 Attend Phys: Hubert Solomon MD Discharge: Date of : 55 Report #: [id number] IMPRESSION: This patient has numerous medical problems. I will confine strictly my evaluation for the possibility of stroke for which the consultation was requested. There is no evidence of stroke on MRI or CT and therefore it is unlikely this patient has a stroke. She is pretty dysarthric, but I suspect that is probably because of systemic problem. It is unusual to have dysarthria though. I am going to get an EEG done to evaluate the patient for encephalopathy. I do not know how to work her up for the weakness and how much weakness she has anyway. I will defer any evaluation of the spine to you or any spine physician you will like to consult, but since she does have septicemia, it may not be a bad idea to get an MRI of the cervical and thoracic spine done because she is not moving much and is very difficult to determine what the cause for that is. I do not know how long it has been even going on. I will discuss that with you. Thank you very much for this referral and if you have any question, please feel free to contact me. <ELECTRONICALLY SIGNED> By: Amandeep Kline MD 03/07/20 1806 [id number] Amandeep Kline MD /nt
[2020-03-07 19:43] VITALS: BP 138/59
[2020-03-08 04:44] VITALS: BP 158/60
--- NOTE | 2020-03-08 04:46 | NUR ---
ASSESSMENT DOCUMENTED.PT BEEN RESTING IN NO ACUTE DISTRESS.A/OX4.VSS.REMAINED AFEBRILE SO FAR THIS SHIFT.BACK AND GENERALIZED PAIN REPORTED BY THE PATIENT THAT IS CONTROLLED WITH PAIN MEDS ORDERED AND PER PATIENT REQUEST.PERICARE GIVEN MUTIPLE TIMES THIS SHIFT.EMANUEL LES DRESSING CDI.PT DENIES ANY OTHER CONCERNS AT THIS TIME.WILL CONT TO MONITOR PER POC.
[2020-03-08 07:27] VITALS: BP 159/77
[2020-03-08 12:54] VITALS: BP 161/103
[2020-03-08 16:58] VITALS: BP 188/92
--- NOTE | 2020-03-08 17:01 | NUR ---
Attempted to reach pt this afternoon to discuss snf referrals. Pt was sleeping. Case discussed with the attending and care team at length. [facility] acute rehab is following along but feel snf may benefit the pt due to her low tolerance. Pt will need iv atb for approx 2 more weeks as well as PT/OT/ST and wound care. Plating Engineer spoke with her sister in law Jackelyn and she and Mary (dtr) will talk this evening. They acknowledge that the pt lives alone and would not have the support to return home with hh. She has been to [facility] in the past and would consider it vs trying a place that they have not been too. Family feels the pt would do better if they could come in daily to help provide encouragement however due to the covid crisis visitation is limited in all health care settings. Pt had fever yesterday and blood cultures are pending. Will send referral to [facility] and check on their bed availability. Family to talk this evening and try to talk with the pt via phone as well. Support provided. Pt rep was also attempting to visit with the pt today as well. Will follow for snf at [facility].
--- NOTE | 2020-03-08 20:18 | NUR ---
RECEIVED PT'S CARE AROUND 0710; PT. ON BED; EQUAL CHEST RISING NOTICED; SR ON THE MONITOR; DURING AM ASSESSMENT PT. RESTING; SLEEP INTERRUPTED; AM MEDICATIONS GIVEN; REQUESTED PRN PAIN MEDICATION & XANAX; EDUCATED ABOUT SIDE EFFECTS OF TAKING BOTH MEDICATIONS AT THE SAME TIME; REMAINED ABOUT FENTANYL PATCH OVER L. SIDE; RE-ASSESSMENT PT. RESTING WITH EYES CLOSED; REQUESTED ZOFRAN BEFORE WORKING WITH PT & OT; MEDICATION GIVEN; REFUSED MEALS THROUGH THE DAY; REFUSED TO USE THE BED SIDE COMMODE; EDUCATED ABOUT GETTING UP IN ORDER TO INCREASE TO STRENGH; REFUSED IT; SR ON THE MONITOR; SBP ELEVATED; PRN MEDICATION GIVEN; PASSED ON REPORT; ASSESSMENT CHARGED; FOLLOWING POC; PASSED ON REPORT;
[2020-03-08 20:50] VITALS: BP 170/79
[2020-03-08 23:09] VITALS: BP 155/69
[2020-03-09 03:53] LABS: ABSOLUTE NEUTROPHILS 1.7 thou/uL (1.4-8.2); BASOPHILS 2.1 % (0.0-2.0); EOSINOPHILS 3.1 % (0.0-3.0); HEMATOCRIT 23.5 % (37.0-47.0); HEMOGLOBIN 7.8 gm/dL (12.0-15.0); LYMPHOCYTES 38.2 % (24.0-44.0); MCH 29.9 pg (26.0-34.0); MCV 90.6 fL (80.0-100.0); MONOCYTES 10.4 % (1.0-8.0); PLATELET COUNT 282 thou/uL (150-400); POLYS 46.2 % (36.0-66.0); RDW 15.1 % (10.5-14.5); WBC 3.7 thou/uL (4.0-11.0)
[2020-03-09 04:45] VITALS: BP 141/83
--- NOTE | 2020-03-09 04:50 | NUR ---
ASSESSMENTS CHARTED, MEDS GIVEN CHARTED. PATIENT IN BED DURING SHIFT. REFUSING TO USE THE BEDSIDE COMMODE, USING BEDPAN. HAD SM BOWEL MOVEMENT. SINUS RHYTHM ON MONITOR. LUNGS CLEAR OVER DIMINISHED ON ROOM AIR. CHECKED BLOOD GLUCOSE AT HS 76. C/O PAIN IN BACK, HIPS AND LEGS. REQUESTED ANXIETY MED. FALL PRECAUTIONS IN PLACE DURING SHIFT.
[2020-03-09 05:48] LABS: ALBUMIN 1.9 g/dL (3.4-5.0); CALCIUM 8.3 mg/dL (8.5-10.1); CREATININE 1.2 mg/dL (0.6-1.0); POTASSIUM 3.9 mmol/L (3.5-5.1); TOTAL BILIRUBIN 0.3 mg/dL (0.2-1.0); TOTAL PROTEIN 6.8 g/dL (6.4-8.2)
[2020-03-09 08:16] VITALS: BP 107/60
[2020-03-09 12:18] VITALS: BP 102/37
--- NOTE | 2020-03-09 13:39 | NUR ---
Case discussed with the care team. The attending has asked Levi to reevaluate noting pt appears more motivated to work with therapy. Levi barroso indicates that they will submit for ins auth for an acute rehab stay due to medical complexity of pt;need for therapies, ivatb and wound care. SNF referral to [facility] on hold awaiting insurance response. Pt up in chair several hours today but sleeping at this time. Update called to dtr Lea. She and Jackelyn have been updating each other and trying to encourage the pt as well. Lea indicates that staff can call either one with updates as they communicate regularly. [facility] updated and holding referral. Family supportive of Levi or SNF at [facility] pending and are hopeful the pt can return to indep living. Will follow.
--- NOTE | 2020-03-09 14:22 | NUR ---
AUTHORIZATION FOR ACUTE REHAB STAY AT [facility] 5N REQUESTED THIS DATE AND INFORMATION SENT TO INSURANCE COMPANY. PER THEIR SENIOR MICROSOFT CONSULTANT, NO ANSWERS REGRADING AUTHORIZATION REQUEST WILL BE GIVEN UNTIL Thursday03/12/20. WILL AWAIT RESPONSE. DUSTER TENDER INFORMED.
--- NOTE | 2020-03-09 15:08 | NUR ---
Assumed care of pt at 07 from SAMUEL Kilgore. Assessed, vss, poc reviewed with pt, she verbalized understanding, pt up to chair with assist x 2, ate both breakfast and lunch in chair, worked with OT and Pt, Dr Gonzalez spoke with pt regarding the realities of getting into rehab if she refuses to try to do the exercises PT recommends. pt seems more willing now, she used bsc, and got back into bed "for a nap." will monitor
[2020-03-09 16:49] VITALS: BP 146/66
[2020-03-09 20:16] VITALS: BP 131/67
[2020-03-10] VITALS (7 sets, daily range): BP systolic 95–126; BP diastolic 47–68
--- NOTE | 2020-03-10 03:30 | NUR ---
ASSESSMENTS CHARTED, MEDS GIVEN CHARTED. PATIENT RESTING IN ROOM DURING SHIFT. ALERT AND ORIENTED, ON ROOM AIR, PATIENT MOVING SELF IN BED TO HELP RELIEVE PAIN. COMPLAIN OF PAIN AT START OF SHIFT AND MIDWAY THROUGH NIGHT. PATIENT STATING THAT HER APPITITE IS BETTER, AND SHE IS HUNGRY. FALL PRECAUTIONS IN PLACE DURING SHIFT.
[2020-03-10 16:33] LABS: HEMATOCRIT 20.1 % (37.0-47.0); HEMOGLOBIN 6.5 gm/dL (12.0-15.0)
--- NOTE | 2020-03-10 16:51 | NUR ---
HGB: LAB DID NOT CALL. HGB IS 6.5. SENT MESSAGE TO DR. SPICER.
[2020-03-11 04:45] VITALS: BP 121/59
--- NOTE | 2020-03-11 06:41 | NUR ---
ASSESSMENTS CHARTED, MEDS CHARTED GIVEN. PATIENTS HGB WAS 6.5 PRIOR TO SHIFT START, TYPE AND CROSS WAS DONE SINCE PRIOR BAND HAD , TRANSFUSE ORDER WAS PUT IN AND PATIENT RECEIVED ONE UNIT OF PRBC'S. C/O CHRONIC PAIN THROUGH SHIFT. FALL PRECAUTIONS IN PLACE DURING SHIFT.
[2020-03-11 07:30] VITALS: BP 131/83
[2020-03-11 09:56] LABS: ABSOLUTE NEUTROPHILS 1.5 thou/uL (1.4-8.2); BASOPHILS 2.2 % (0.0-2.0); EOSINOPHILS 8.5 % (0.0-3.0); HEMATOCRIT 25.2 % (37.0-47.0); LYMPHOCYTES 38.4 % (24.0-44.0); MCH 30.1 pg (26.0-34.0); MCHC 33.7 g/dL (28.0-37.0); MCV 89.2 fL (80.0-100.0); MONOCYTES 10.9 % (1.0-8.0); PLATELET COUNT 229 thou/uL (150-400); RBC 2.82 mil/uL (4.20-5.00); RDW 15.7 % (10.5-14.5); WBC 3.6 thou/uL (4.0-11.0)
[2020-03-11 10:07] LABS: HEMOGLOBIN 8.5 gm/dL (12.0-15.0)
[2020-03-11 12:00] VITALS: BP 146/75
[2020-03-11 16:30] VITALS: BP 150/78
[2020-03-11 19:43] VITALS: BP 133/62
--- NOTE | 2020-03-11 21:26 | NUR ---
PT SLEEPING IN BED, IN THE DARK. PT EASILY AROUSABLE, CLEAR SPEECH, GOOD EYE CONTACT. PT REQUESTED APPLE JUICE AND SCOTTISH ICE AND PROVIDED. PT COMPLIANT WITH ASSESSMENT AND MEDICATIONS. BLE DRESSINGS INTACT. HEART MURMUR, O2 PER NC, PT REPOSITIONS SELF.
[2020-03-12 04:27] VITALS: BP 144/51
[2020-03-12 08:41] VITALS: BP 170/80
--- NOTE | 2020-03-12 10:20 | NUR ---
RECEIVED CALL FROM TAD AT [facility] THIS MORNING REQUESTING UPDATED CLINICAL INFO ON Pt. CLINICAL UPDATES SENT TO [facility] TO TAD/HANNAH AT [phone]. AWAITING RESPONSE REGARDING AUTHORIZATION FOR ACUTE REHAB. INSOLE CHANNELER/CM UPDATED.
--- NOTE | 2020-03-12 10:46 | NUR ---
CARE OF PT ASSUMED AT 0700 FROM SAMUEL LY, PT ASSESSED, VSS, SLEEPING IN BED, WOKEN UP FOR MED AND TO DISCUSS POC, PAIN MEDS GIVEN PER PT'S REQUEST, OT IN TO SEE PT, GAVE PT BATH, PT SLEEPING IN CHAIR, ENCOURAGED TO MOVE MORE, USE BSC OFTEN POSSIBLE. CALL LIGHT AT SIDE, WILL MONITOR
[2020-03-12 11:55] VITALS: BP 126/61
--- NOTE | 2020-03-12 13:34 | NUR ---
RECEIVED CALL BACK FROM TAD AT [facility] REGARDING INSURANCE AUTHORIZATION FOR ACUTE REHAB. Pt IS STILL PENDING SOME TESTS, NEW GI CONSULT, AND HAD RECENT BLOOD TRANSFUSION OVER THE WEEKEND, THEY DID NOT FEEL Pt WAS QUITE READY FOR D/C. BASED ON THERAPY NOTES, Pt HAS NOT BEEN COOPERATIVE AND PARTICIPATORY. RECEIVED PRESUMPTIVE DENIAL FROM [facility] FOR ACUTE REHAB WITH RECOMMENDATION TO PURSUE SNF LEVEL OF CARE INSTEAD EVEN AFTER THE Pt'S ADDITIONAL MEDICAL CONCERNS ARE ADDRESSED. PER TAD, INFORMATION REGARDING PEER TO PEER, IF DESIRED, WERE LEFT ON VOICEMAIL ON THE ACUTE HOSPITAL SIDE. PEER TO PEER WOULD BE DUE Thursday03/15/20 AT 11:00. SW UPDATED WITH THIS INFORMATION. THANK YOU FOR THIS REFERRAL.
--- NOTE | 2020-03-12 15:26 | NUR ---
called and sp with patient in room. Discussed insurance denial of . patient reports she strongly wants to transfer to . She reports she is not medically ready, running a fever. She reports when she is ready to transfer to she will likely be able to tolerate 3 hours of therapy. Discussed skilled care. Patient does not want to return to [facility] she wants to review options. [employer] list sent on fax to be given to patient to review. Discussed with [facility] if can also discuss with patient denial. Patient to review [employer] list with family. Plan to call patient in am to discuss.
[2020-03-12 17:20] VITALS: BP 138/58
[2020-03-12 19:50] VITALS: BP 120/59
--- NOTE | 2020-03-13 00:04 | NUR ---
03/12/200 ASSUMED CARE OF PT AFTER BEDSIDE REPORT, PT RESTING IN BED, REFUSES TO CHANGE POSTITION. 2009 PT WAS COMPLAINING OF PAIN TO BACK AND LEGS, REFUSED TRAMADOL AND HYDROCODONE, STATED SHE WANTED DILAUDID IT IS THE ONLY THING THAT HELPS HER PAIN RATED 8/10, WILL CONTINUE TO MONITOR, DRESSINGS TO WOUNDS IN PLACE AND C/D/I, NO DRAINAGE NOTED, FALL PRECAUTIONS IN PLACE, WILL CONTINUE TO MONITOR
[2020-03-13 00:35] VITALS: BP 134/66
[2020-03-13 05:04] VITALS: BP 139/65
[2020-03-13 07:57] VITALS: BP 145/57
--- NOTE | 2020-03-13 10:28 | HC ---
[facility] [address] CONSULTATION Name: PRITESH KILPATRICK Room #: 205-P ADM IN M.R.#: [id number] Admission: 02/23/20 Attend Phys: Hubert Solomon MD Discharge: Date of : 55 Report #: [id number] THIS REPORT FOR: cc: Apryl Lemon MD,Migue Duval MD, MD ~ CC: Hubert Lemon DATE OF SERVICE: 03/01/2020 HISTORY OF PRESENT ILLNESS: The patient is a 64-year-old white female originally admitted on 02/23/2020 with nausea, vomiting, myalgias, was noted to have severe sepsis, acute renal insufficiency superimposed on chronic kidney disease with multiple abscesses, right knee, right hand, left leg. She underwent I and D by Dr. Weiner on 02/25/2020. She was noted to be significantly encephalopathic with mental status changes, was seen by Neurology. MRI, CT was negative for CVA, but she was noted to be quite confused and lethargic. She was hypotensive, monitored in the intensive care unit. She has acute renal insufficiency superimposed on chronic kidney disease. Severe sepsis is secondary to septic arthritis. She has the toxic metabolic encephalopathy, appears to be gradually improving. We are seeing her in rehabilitation medicine consultation. PAST MEDICAL HISTORY: Includes asthma, anemia of chronic disease, rheumatic fever, severe osteoporosis, diverticulitis with prior colectomy, chronic kidney disease. She has had a prior right arm fracture and a prior left arm fracture. She indicates some type of left foot fracture as well, although I am uncertain regarding her history. MEDICATIONS: Please see the full medication listing. ALLERGIES: BEE STINGS, DOXYCYCLINE, PENICILLIN, OLMESARTAN. SOCIAL HISTORY: Lives in a house alone, 6 steps in, did not utilize gait aids, had a walker that she kept in her car. Has a [id number] in the area that lives in [place] as well as a daughter that lives in [place]. REVIEW OF SYSTEMS: Complains of some overall generalized weakness, extremity pain complaints, lower back complaints. She has had prior MRI of the thoracic spine that was negative except for severe scoliosis. PHYSICAL EXAMINATION: GENERAL: A 64-year-old overweight white female, lying in bed, in no obvious [facility] [address] [place] [address] CONSULTATION Name: PRITESH KILPATRICK Room #: 205-P [facility].#: [id number] Admission: 02/23/20 Attend Phys: Hubert Solomon MD Discharge: Date of : 55 Report #: [id number] distress, obviously with some frustration with her current condition and has decreased insight. VITAL SIGNS: Temperature 36.8, pulse 100, respirations 18, blood pressure 183/106. NEUROLOGIC: The patient is alert, but definite latency to her responses, concrete in her thinking, decreased insight, needs encouragement. Facies appeared symmetric. EXTREMITIES: She has multiple dressings in place, right hand, bilateral lower extremities from the I and D. She is able to hold her arm up over her body bilaterally, a grade 3 to 3+/5, but needs encouragement. Strength of the upper extremities otherwise is probably a 3 to 3+/5. In her lower extremities, there is no focal calf swelling. I would again grade her strength at probably a 3 to 3+ at max. She tends to move slowly. She has been dependent with sit to supine, max assist with rolling. ASSESSMENT: A 64-year-old white female with the following problem list: 1. Toxic metabolic encephalopathy. 2. Likely critical illness myopathy. 3. Severe sepsis secondary to septic arthritis, status post incision and drainage on 02/25/2020 of right leg, left leg and right thumb abscesses. 4. Acute renal insufficiency superimposed on chronic kidney disease. 5. Dysphagia, likely due to the encephalopathy. She is currently n.p.o. with speech therapy involved. 6. Hypertension has been uncontrolled. 7. Severe protein-calorie malnutrition. 8. Coronary artery disease with a history of percutaneous coronary intervention x 3. 9. Severe osteoporosis. 10. Anxiety/depression. PLAN: We would anticipate that the patient would be a candidate for an acute in-hospital inpatient rehabilitation stay. I would like to see her tolerance improve. She is at a very low level currently functionally. She looks like she is becoming a little more alert, so hopefully she will be able to participate in therapies a little bit more. She certainly has considerable medical complexity issues and definitely meets the rehab diagnostic criteria. Insurance precertification issues would need to be checked into as she further medically stabilizes. We will be glad to follow along with you regarding her rehab therapy needs. <ELECTRONICALLY SIGNED> By: Migue Aguirre MD 03/13/20 1028 [id number] Migue Aguirre MD /nt
[2020-03-13 10:41] LABS: HEMATOCRIT 24.8 % (37.0-47.0); HEMOGLOBIN 8.3 gm/dL (12.0-15.0); MCH 29.9 pg (26.0-34.0); MCHC 33.6 g/dL (28.0-37.0); MCV 88.9 fL (80.0-100.0); RBC 2.79 mil/uL (4.20-5.00); RDW 15.5 % (10.5-14.5); WBC 3.7 thou/uL (4.0-11.0)
[2020-03-13 11:55] VITALS: BP 124/76
--- NOTE | 2020-03-13 13:35 | NUR ---
Patient denied [facility] by ins, offered peer to peer however phys reports patient may not be candidate for [facility]. Patient was given her skilled list but has not reviewed. Emailed skilled list to JEOVANNY Hayden to review. She reports ultimately patients decision but she will discuss with patient. Updated RN
--- NOTE | 2020-03-13 14:59 | NUR ---
Spoke with patient who reviewed her [employer] list. Referrals to [facility], [facility] and [facility] for review.
[2020-03-13 15:43] VITALS: BP 132/59
--- NOTE | 2020-03-13 16:21 | NUR ---
FAXED REFERRAL TO [facility] SPOKE WITH JORY IN ADM SHE RECEIVED AND WILL REVIEW. FAXED REFERRAL TO [facility] RECEIVED CONFIRMATION AND LEFT MSG WITH ADM. DP TO FOLLOW.
--- NOTE | 2020-03-13 20:22 | NUR ---
RECEIVED PT'S AROUND 0720; PT. ON BED; RESTING WITH EYES CLOSED; SR ON THE MONITOR; EQUAL CHEST RISING NOTICED; DURING AM ASSESSMENT C/O BACK PAIN; PT. REMAINED ABOUT FENTANYL PATCH; REQUESTED PRN PAIN MEDICATION; PT. RESTING WITH EYES CLOSED WHEN BACK WITH PAIN MEDICATION; NO GIVEN; AM MEDICATION; EDUCATED ABOUT THE IMPORTANCE TO TAKE BP MEDICATION; THROUGH THE DAY PT. RESTING WITH EYES CLOSED; EDUCATED ABOUT POC; ENCOURAGE TO CHOOSE PLACES WITH PHYSICIAN AT THE BED SIDE; SISTER IN LAW CALLED & UPDATE ABOUT IT; GENERAL LOT ATTENDANT UPDATE; PER SOCIAL PT. CHOSE THREE OPTIONS; SR ON THE MONITOR; PT. EDUCATED ABOUT FALL PREVENTIONS & NEED TO MANTAIN OPEN DOOR; NEEDS TO BE REMAINED; ASSESSMENT CHARGED; FOLLOWING POC; PASSED ON REPORT;
[2020-03-14 08:06] VITALS: BP 155/68
--- NOTE | 2020-03-14 09:13 | NUR ---
pt resting quietly in bed thru the noc, prn pain meds given at hs, vss, pt repositiod as needed, voiding per bedpan, concerned with dc'd medications, up to chair this am, report given to next shift to con't with ppoc.
[2020-03-14 12:03] VITALS: BP 119/63
--- NOTE | 2020-03-14 12:44 | NUR ---
[facility] and [facility] not accepting of patients. [facility] accepting of patient clinically and working on auth with insurance. Updated patient. Left message with JEOVANNY Hayden.
--- NOTE | 2020-03-14 15:06 | CRIT ---
[facility] [place] [address] CRITICAL CARE NOTE Name: PRITESH KILPATRICK Room #: 205-P ADM IN ..#: [id number] Admission: 02/23/20 Attend Phys: Hubert Solomon MD Discharge: Date of : 55 Report #: [id number] THIS REPORT FOR: //name// CC: Hubert Lemon HISTORY OF PRESENT ILLNESS: The patient is a pleasant 64-year-old female I have been asked to see for further evaluation of her anemia. She has had a prolonged hospital stay and has been in the hospital for over 2 weeks. All the details regarding her hospitalization can be evaluated throughout the computer. She struggled with sepsis, septic arthritis, prepatellar bursitis, subcutaneous abscess, metabolic encephalopathy, coronary artery disease, protein-calorie malnutrition. Her medical history is otherwise documented as well in the chart. She denies significant abdominal pain, although she does have intermittent epigastric abdominal discomfort. She denies hematochezia, hematemesis or melena. She is noted to have a hemoglobin drop to 6.5 from 7.8 and her hemoglobin now is 8.5 after transfusion. MEDICATIONS: Include albuterol, vitamin B1, Prozac, bupropion, Seroquel, amlodipine, alprazolam, metoprolol, Protonix 40 mg daily, tramadol, cyclobenzaprine, hydrocodone, clonidine, hydromorphone, hydralazine, Rocephin, Colace, alteplase, Tylenol. FAMILY HISTORY AND SOCIAL HISTORY: Noncontributory. REVIEW OF SYSTEMS: Negative for weight loss, weakness or fatigue. She denies head, eyes, ears, nose or throat complaints. Denies chest pain, chest palpitation, chest pressure, cough, shortness of breath, wheezing, genitourinary, musculoskeletal or neuropsychiatric complaints beyond those described above. PHYSICAL EXAMINATION: VITAL SIGNS: Afebrile. Vital signs, stable. HEENT: Nonicteric. ABDOMEN: Soft, nondistended, nontender. PERTINENT LABORATORY DATA: Include hemoglobin as detailed above. White count 3.6. Blood gas was reviewed. Serum chemistry noted for C-reactive protein of 43.8. Imaging was reviewed. ASSESSMENT: In summary, the patient has anemia, but no evidence of significant rectal bleeding, hematochezia, hematemesis or melena. She has epigastric abdominal discomfort. This is intermittent in nature. I would increase her Protonix to 40 mg twice daily orally. If indeed her abdominal pain worsens, then an upper endoscopy would be reasonable. Eventual colonoscopy is also reasonable as an outpatient. At this point, there is no evidence of gross GI bleeding and acute endoscopy is not indicated. [address] [address] CRITICAL CARE NOTE Name: PRITESH KILPATRICK Room #: 205-P ADM IN M.R.#: [id number] Admission: 02/23/20 Attend Phys: Hubert Solomon MD Discharge: Date of : 55 Report #: [id number] PLAN: We will follow concurrently. I appreciate the opportunity to participate in the care of this nice woman. <ELECTRONICALLY SIGNED> By: Master Suarez MD 03/14/20 1506 [id number] 1300 Sachin Meyer MD /nt
[2020-03-14] MEDS ORDERED: DURAGESIC1 EAC4 TRANSDERM (16:41)
[2020-03-14] MEDS ORDERED: NORCO 7.5-3251 EACH PO (16:41)
[2020-03-14] MEDS ORDERED: LYRICA 75 MG CA75 MG PO (16:41)
[2020-03-14] MEDS ORDERED: AMLODIPINE BESY10 MG PO (16:41)
[2020-03-14] MEDS ORDERED: TRAMADOL 50 MG50 MG PO (16:41)
[2020-03-14] MEDS ORDERED: SEROQUEL 25 MG25 M1 PO (16:41)
[2020-03-14] MEDS ORDERED: LOPRESSOR50 PO (16:41)
[2020-03-14] MEDS ORDERED: CYCLOBENZAPRINE5 MG PO (16:41)
--- NOTE | 2020-03-14 16:51 | NUR ---
[facility] rec auth and acceptance today transport at 1700 via [facility] van. Patient in agreement with plan. Verified for patient no COVID patients at [facility]. chart copied orders faxed. Notfied RN of transport time. Notified family Jackelyn and location/number for [facility] no futher needs
--- NOTE | 2020-03-14 20:05 | NUR ---
RECEIVED PT'S CARE AROUND 724; PT. ON BED; RESTING WITH EYES CLOSED; EQUAL CHEST RISING NOTICED; SR ON THE MONITOR; DURING AM ASSESSMENT AOX4; FORGETFUL; AM MEDICATIONS GIVEN; REMAINED THE REASON OF TAKING BP MEDICATION; ST. USUALLY TAKES ONLY ONE; EDUCATD ABOUT GOALS THROUGH THE DAY; UP TO CHAIR WITH OT; PER REPORT BY PT. PT. ABLE TO AMBULATE AROUND THE BED WITH WALKER; NO C/O PAIN; SB ON THE MONITOR WHILE RESTING WITH EYES CLOSED; WOUND CARE PERFORMED; PICTURES TAKEN BEFORE D/C; D/C ORDERS ON PLACED; CALLED PER REPORT NO ANSWER; RECEIVED CALL BACK; PER ADMISSION NURSE PACKAGE DID NOT HAVE MEDICATION LIST; MEDICATION LIST FAXED; REPORT GIVEN; FOLLOWED POC; ASSESSMENT CHARGED; PASSED ON REPORT;
--- NOTE | 2020-03-15 15:16 | HC ---
[facility] [place] [address] CONSULTATION Name: PRITESH KILPATRICK Room #: 205-P [facility] IN M.R.#: [id number] Admission: 02/23/20 Attend Phys: Hubert Solomon MD Discharge: 03/14/20 Date of : 55 Report #: [id number] THIS REPORT FOR: cc: Apryl Lemon MD,Apryl Petersonouachita and morehouse parishesJackelyn MD ~ CC: Hubert Lemon DATE OF SERVICE: 02/24/2020 ORTHOPEDIC CONSULTATION NOTE REASON FOR CONSULTATION: Cellulitis, left hand; possible septic right knee. HISTORY OF PRESENT ILLNESS: The patient is a 64-year-old female who presented to the Emergency Department with diffuse myalgias, fevers, aches for the last few days. She has been seen in the Emergency Department. Blood cultures came back positive. In the Emergency Department visit, it was noted that there was redness in her knee and also pain in her left hand and redness. She reports she was held down in order to have her COVID-19 swab performed there. The history was significantly limited and physical exam was somewhat limited by the patient's mental status. She was sleepy, did not answer questions well. PAST MEDICAL HISTORY: Obtained from the chart, which includes iron deficiency anemia, history of hypertension, osteoarthritis, gastroesophageal reflux disease, asthma, leaking aortic valve, shingles, depression, anxiety, coronary artery disease. PAST SURGICAL HISTORY: Tonsillectomy, cholecystectomy, appendectomy, history of a right arm fracture, left arm fracture, cardiac stents. ALLERGIES: INCLUDE PENICILLIN, DOXYCYCLINE, OLMESARTAN, AND BEE STINGS. SOCIAL HISTORY: Obtained from the chart. No alcohol or drugs. REVIEW OF SYSTEMS: Again is obtained from the chart. MUSCULOSKELETAL: See HPI. SKIN: See HPI for cellulitis or redness. MEDICATIONS: Ondansetron, bupropion, quetiapine, trazodone, alprazolam, vitamin D, epinephrine, pantoprazole, albuterol, oxycodone, famotidine. LABORATORY STUDIES: Done on 02/24/2020 show white blood cell count 19, hemoglobin 8.2, hematocrit 25, platelet count 162. ESR on 02/22 was 40. Chemistry on 02/23 showed a normal sodium, normal potassium, creatinine is [address] [address] CONSULTATION Name: PRITESH KILPATRICK Room #: 205-P [facility] IN .R.#: [id number] Admission: 02/23/20 Attend Phys: Hubert Solomon MD Discharge: 03/14/20 Date of : 55 Report #: [id number] elevated at 2.4, calcium and magnesium are low. COVID test is pending. PHYSICAL EXAMINATION: GENERAL: The patient is awake, but sleepy. She did not answer questions to determine her alert and oriented status. She is a well-developed, well-nourished female, in moderate distress. She is in her hospital bed. VITAL SIGNS: Show a temperature of 36.2, heart rate 84, respiratory rate 16, blood pressure is 78/48, pulse oximetry is 99% on 2 liters nasal cannula. EXTREMITIES: Examination of her right upper extremity, there is a 5 mm eschar on the dorsal aspect of her thumb at approximately the level of the IP joint with a rim of erythema and some central necrosis. She reports this as being an old injury. This is not significantly tender and most likely, the erythema is reactive. She has 2+ radial pulse. Sensation is grossly intact. Grossly intact strength and stability of her right upper extremity. There is no pain with range of motion of her right shoulder, elbow, forearm, wrist or hand. There is no significant tenderness to her entire right upper extremity. Left upper extremity exam, 2+ radial pulse. Skin is clean, dry and intact. She has a mild dorsal ulnar cellulitis in the hand with some tenderness. Gross strength and stability is intact. She wiggles if she moves her fingers. There is no pain with range of motion of the ____ shoulder, elbow, forearm, wrist or fingers except for the ring and small. There is no other tenderness throughout the entire left upper extremity. Right lower extremity exam shows a 2+ dorsalis pedis pulse. Sensation is grossly intact. Gross strength and stability is intact. The skin is clean, dry and intact. On the anterior aspect of the knee, there is a rim of erythema with surrounding area of cellulitis measuring approximately 10-15 cm. This does not extend to the lateral aspect where the attempted aspiration was performed by the ER physician. There is a moderate knee effusion. There is tenderness anteriorly at the knee, mild tenderness posteriorly. The knee is grossly stable. There is no pain with hip range of motion. There is mild pain with right knee range of motion. No pain with ankle range of motion. There is no other tenderness throughout the entire right lower extremity. Left lower extremity: The skin is clean, dry and intact. 2+ dorsalis pedis pulse. Sensory is grossly intact. Gross stability and strength is intact. No pain with range of motion of the left knee, ankle, foot or hip. No tenderness to palpation throughout. RADIOGRAPHS: AP and lateral and oblique of the right knee were evaluated and interpreted by myself as well as the report was reviewed, which shows a knee effusion. No acute injury. 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 IMPRESSION AND PLAN: [facility] [address] [place] [address] CONSULTATION Name: PRITESH KILAPTRICK Room #: 205-P [facility] IN M.R.#: [id number] Admission: 02/23/20 Attend Phys: Hubert Solomon MD Discharge: 03/14/20 Date of : 55 Report #: [id number] 1. Left dorsal hand cellulitis. There is no evidence of acute fracture. Antibiotics per the medical team and we will continue to observe. 2. Right anterior knee cellulitis with an effusion. There was a failed attempt at aspiration in the Emergency Department. The patient is septic and actually currently being moved to the ICU as I am dictating this. I performed an aspiration while in the room, initially evaluating her of the right knee. The risks, benefits, alternatives and complications were discussed. She was able to verbalize understanding. Informed consent was obtained verbally and under sterile conditions, 0.5 mL of 1% lidocaine was injected into the subcutaneous tissue outside of the area of erythema at the superolateral area of the knee, superolateral to the patella. An 18-gauge needle was inserted, 15 mL of serous fluid tinged with blood was obtained. It had normal viscosity. It was sent off to microbiology. I have a low suspicion for a septic knee given her fluid appearance; however, she does have a dorsal area of erythema that needs to be watched for an abscess. She may require incision and debridement. Thank you very much for allowing me to participate in care of this patient. One of my [employer] partners will follow her over the weekend. <ELECTRONICALLY SIGNED> By: Jackelyn Morrow MD 03/15/20 1516 0629 [id number] Jackelyn Morrow MD /nt
[2020-03-19] MEDS ORDERED: PERCOCET 10-321 EAC1 PO (10:36)
[2020-03-19] MEDS ORDERED: DURAGESIC1 EAC2 TRANSDERM (10:37)
[2020-03-23] MEDS ORDERED: INVANZ1 GM IV (12:04)
[2020-03-23] MEDS ORDERED: LASIX 40 MG TAB40 MG PO (12:04)
== END 2020-03-14 17:45 | DRG 853 ==
LOC: ER 15:03 → ICU 19:10 → EROBS 19:10 → 3W 21:42 → ICU 02-24 07:15 → 2N 02-26 17:36
PROVIDERS: Emergency Medicine; Hospitalist; Internal Medicine; Internal Medicine Nephrology; Nurse Practitioner; Orthopaedic Surgery Foot and Ankle Surgery; Orthopaedic Surgery Hand Surgery; Psychiatry & Neurology Neurology; Specialist; ADMIT Internal Medicine; ATTEND Internal Medicine
DX: A40.0 Sepsis due to streptococcus, group A (principal); N17.0 Acute kidney failure with tubular necrosis; G92 Toxic encephalopathy; E43 Unspecified severe protein-calorie malnutrition; L03.114 Cellulitis of left upper limb; M00.9 Pyogenic arthritis, unspecified; B37.89 Other sites of candidiasis; L02.416 Cutaneous abscess of left lower limb; L02.415 Cutaneous abscess of right lower limb; L02.511 Cutaneous abscess of right hand; D62 Acute posthemorrhagic anemia; F33.9 Major depressive disorder, recurrent, unspecified; M70.41 Prepatellar bursitis, right knee; M19.90 Unspecified osteoarthritis, unspecified site; K21.9 Gastro-esophageal reflux disease without esophagitis; J45.909 Unspecified asthma, uncomplicated; F41.9 Anxiety disorder, unspecified; R65.20 Severe sepsis without septic shock; M81.0 Age-related osteoporosis without current pathological fracture; N18.9 Chronic kidney disease, unspecified; M25.461 Effusion, right knee; M25.442 Effusion, left hand; N61.0 Mastitis without abscess; I25.10 Atherosclerotic heart disease of native coronary artery without angina pectoris; D63.8 Anemia in other chronic diseases classified elsewhere; L30.4 Erythema intertrigo; R13.10 Dysphagia, unspecified; E87.6 Hypokalemia; I95.9 Hypotension, unspecified; G89.29 Other chronic pain; M54.9 Dorsalgia, unspecified; M54.2 Cervicalgia; I12.9 Hypertensive chronic kidney disease with stage 1 through stage 4 chronic kidney disease, or unspecified chronic kidney disease; M48.061 Spinal stenosis, lumbar region without neurogenic claudication; Z20.828 Contact with and (suspected) exposure to other viral communicable diseases; E83.42 Hypomagnesemia; M41.9 Scoliosis, unspecified; Z86.010 Personal history of colon polyps; Z87.81 Personal history of (healed) traumatic fracture; Z90.49 Acquired absence of other specified parts of digestive tract; Z95.5 Presence of coronary angioplasty implant and graft; Z88.0 Allergy status to penicillin; Z88.8 Allergy status to other drugs, medicaments and biological substances; Z68.28 Body mass index [BMI] 28.0-28.9, adult
CPT/HCPCS: 10078; 10081; 10797; 10879; 50101; 50386; 53078; 56525; 57091; 57103; 62110; 62900; 70005

== ENCOUNTER 2020-03-19 10:09 | Inpatient (IN) | payer OTHER, BC ==
[2020-03-19] VITALS (10 sets, daily range): BP systolic 86–156; BP diastolic 45–69
[~2020-03-19] VITALS: Ht 167.6 cm; Wt 78.0 kg
--- NOTE | ~2020-03-19 | EMS ---
[place] [address] EMS Patient Care Report Name: PRITESH KILPATRICK Room #: REG ELIZABETH Garcia#: [id number] Admission: 03/19/20 Attend Phys: Discharge: Date of : 55 Report #: [id number] THIS REPORT FOR: //name// Report Transmitted: 03/19/2020 11:32 EMS Care Summary [facility] MED-ACT Incident [id number] @ 03/19/2020 09:26 Incident Location [address] [place] [address] Patient PRITESH KILPATRICK Female, 64 Years 1955 Patient Address [address] [place] [address] Patient History Hypertension (HTN),Gastro-Esophageal Reflux Disease (GERD),Osteoporosis,Anxiety,Chronic Kidney Disease,Cellulitis,Coronary Artery Disease (CAD), Patient Allergies Penicillin allergy,Doxycycline,Other drug allergy, Patient Medications Norvasc, Pantoprazole, Metoprolol, Hydrocodone, Lyrica, Quetiapine, Cyclobenzaprine, Ceftriaxone, Acetaminophen, Percocet, [place], Alprazolam, Zofran, Ventolin, Fentanyl, Chief Complaint Fever, cough, difficulty breathing, body aches Disposition Transported No Lights/[place] Reason Breathing Problem Transported To [address] [address] EMS Patient Care Report Name: PRITESH KILPATRICK Room #: REG [facility]#: [id number] Admission: 03/19/20 Attend Phys: Discharge: Date of : 55 Report #: [id number] Narrative Due to call notes about respiratory symptoms and fever, the lead medic put on the PAPR before making pt contact. [id number] arrived on scene to find pt reclining in her bed. Pt appeared to be in no acute distress. [facility] S47 gave report to EMS. They stated pt was admitted to the facility on Thursday, March 16 after a 20 day stay at [facility] for sepsis. It is unclear what pt's initial infection was, possibly MRSA from a wound on her (R) knee. Pt complains of cough, dyspnea, and body aches that have been going on for 2 days. Pt's temperature this morning was found to be 99.9 by staff. Pt states she has not received any tylenol. Pt reportedly had a COVID test while at the hospital last week and it was negative. Pt was scheduled for a COVID test this morning at her facility, but is going to the hospital instead for her symptoms. Pt had a round of antibiotics going in through the port in her (R) chest when EMS arrived. Pt was found to have 2 lpm NC O2 and S47 upped it to 3 lpm upon arrival due to pt dyspnea complaint. Exam. S47 stated the facility had taken VS shortly prior to EMS arrival and "they were fine." Pt sheet lifted to cot, secured with seatbelts--> unit. ECG, temp attempted, but unsure of it's accuracy. IV deferred due to presence of port, short transport time, and stability of pt. No further complaints and VS monitored en route. Biocom to [place] with information only. Pt sheet lifted to ER bed #12. Report given and care transferred to GENERAL MANAGER, pt condition unchanged. Initial Vitals @09:55P: 61,R: 18,BP: 96/65,Pain: 2/10,GCS: 15,SpO2: 98,Revised Trauma: 12,ME Suspected: false @10:03P: 60,R: 18,BP: 83/55,GCS: 15,SpO2: 98,Revised Trauma: 11,ME Suspected: false @PTAGCS: 15,Temp: 99.9F, Assessments @09:41MENTAL:Person Oriented,Time Oriented,Place Oriented,Event Oriented,SKIN:HEENT:Eyes: Left Pupil: 3-mm,Eyes: Right Pupil: 3-mm,Head/Face: No Abnormalities,Neck/Airway: No Abnormalities,LUNG SOUNDS:General: No Abnormalities,ABDOMEN:General: No Abnormalities,PELVIS//GI:EXTREMITIES:Right Leg: Other,Left Arm: No Abnormalities,Right Arm: No Abnormalities,Left Leg: No Abnormalities,PULSE:Radial: 2+ Normal,NEURO:No Abnormalities, Impression COVID-19 - Suspected - no known exposure [address] [address] EMS Patient Care Report Name: PRITESH KILPATRICK Room #: REG M.R.#: [id number] Admission: 03/19/20 Attend Phys: Discharge: Date of : 55 Report #: [id number] Timeline YARD SPECIALIST,BP: / M,PULSE: ,RR: R,SPO2: Ox,ETCO2: ,BG: ,PAIN: ,GCS: 15, 09:24,Call Received 09:24,Psap Call 09:26,Dispatched 09:27,En Route 09:33,On Scene 09:39,At Patient 09:55,BP: 96/65 M,PULSE: 61,RR: 18 R,SPO2: 98 Ox,ETCO2: ,BG: ,PAIN: 2,GCS: 15, 09:57,Depart Scene 10:03,At Destination 10:03,BP: 83/55 M,PULSE: 60,RR: 18 R,SPO2: 98 Ox,ETCO2: ,BG: ,PAIN: ,GCS: 15, 10:32,Call Closed Disclaimer v1.1 Copyright 2020 [employer] This EMS Care Summary contains data elements from the applicable legal record (which may be displayed differently). It is designed to provide pertinent information for the following purposes: continuity of care, clinical quality, and state data reporting. The complete legal record is available to ED staff and administrators of the receiving hospital in [employer]'s Patient Tracker. All data is provided "as is."
[~2020-03-19 10:09] MED LIST changes: +AMLODIPINE BESY10 MG PO; +CLONIDINE1 EAC1 TRANSDERM; +CYCLOBENZAPRINE5 MG PO; +DURAGESIC1 EAC4 TRANSDERM; +FOLIC ACID1 MG PO; +LOPRESSOR50 PO; +LYRICA 75 MG CA75 MG PO; +METOPROLOL TART25 MG PO; +NORCO 7.5-3251 EACH PO; +TRAMADOL 50 MG50 MG PO
[2020-03-19] MEDS ORDERED: PERCOCET 10-321 EAC1 PO ×2 (10:36)
[2020-03-19] MEDS ORDERED: DURAGESIC1 EAC2 TRANSDERM ×2 (10:37)
[2020-03-19 10:47] LABS: ABSOLUTE NEUTROPHILS 2.4 thou/uL (1.4-8.2); BASOPHILS 1.1 % (0.0-2.0); EOSINOPHILS 7.8 % (0.0-3.0); HEMATOCRIT 25.1 % (37.0-47.0); HEMOGLOBIN 8.3 gm/dL (12.0-15.0); LYMPHOCYTES 34.2 % (24.0-44.0); MCH 29.1 pg (26.0-34.0); MCV 88.2 fL (80.0-100.0); MONOCYTES 10.2 % (1.0-8.0); PLATELET COUNT 276 thou/uL (150-400); POLYS 46.7 % (36.0-66.0); RBC 2.85 mil/uL (4.20-5.00); RDW 15.7 % (10.5-14.5); WBC 5.1 thou/uL (4.0-11.0)
[2020-03-19 10:51] LABS: ANION GAP 6 mmol/L (7-16); BUN 17 mg/dL (7-18); CALCIUM 8.5 mg/dL (8.5-10.1); CHLORIDE 101 mmol/L (98-107); CO2 29 mmol/L (21-32); CREATININE 1.7 mg/dL (0.6-1.0); GLUCOSE 80 mg/dL (74-106); POTASSIUM 3.8 mmol/L (3.5-5.1); SODIUM 136 mmol/L (136-145)
[2020-03-19 11:01] LABS: ALBUMIN 1.9 g/dL (3.4-5.0); SGOT 20 U/L (15-37); TOTAL BILIRUBIN 0.3 mg/dL (0.2-1.0); TOTAL PROTEIN 6.7 g/dL (6.4-8.2); TROPONIN-I <0.06 ng/mL (<0.06)
[2020-03-19 11:06] LABS: DIRECT BILIRUBIN < 0.1 mg/dL (<0.1-0.2); SGPT < 6 U/L (30-65)
[2020-03-19 14:09] LABS: BE(vivo) -0.7 mmol/L (-2 to +3); HCO3 24.7 mmol/L (22.0-26.0); PCO2 44.3 mmHg (35.0-45.0); PO2 76.9 mmHg (80.0-100.0); pH 7.364 (7.360-7.450); sO2 94.9 % (92.0-98.0)
[2020-03-20] VITALS (31 sets, daily range): BP systolic 105–165; BP diastolic 34–76
[2020-03-20 01:19] LABS: URINE BILIRUBIN NEGATIVE (Negative); URINE BLOOD TRACE (Negative); URINE CLARITY CLEAR; URINE COLOR YELLOW; URINE GLUCOSE-RANDOM* NEGATIVE (Negative); URINE KETONES TRACE (Negative); URINE LEUKOCYTES-REFLEX NEGATIVE (Negative); URINE NITRITE-REFLEX NEGATIVE (Negative); URINE PROTEIN (DIPSTICK) NEGATIVE (Negative); URINE UROBILINOGEN 0.2 E.U./dl (0.2-1.0)
[2020-03-20 05:52] LABS: HEMATOCRIT 24.1 % (37.0-47.0); HEMOGLOBIN 8.1 gm/dL (12.0-15.0); MCH 29.4 pg (26.0-34.0); MCHC 33.6 g/dL (28.0-37.0); MCV 87.6 fL (80.0-100.0); RBC 2.76 mil/uL (4.20-5.00); RDW 15.6 % (10.5-14.5); WBC 4.2 thou/uL (4.0-11.0)
[2020-03-20 06:11] LABS: CALCIUM 8.1 mg/dL (8.5-10.1); CREATININE 1.3 mg/dL (0.6-1.0); POTASSIUM 3.7 mmol/L (3.5-5.1)
[2020-03-21 05:00] VITALS: BP 132/66
[2020-03-21 05:53] LABS: HEMATOCRIT 22.9 % (37.0-47.0); HEMOGLOBIN 7.6 gm/dL (12.0-15.0); MCHC 33.1 g/dL (28.0-37.0); MCV 87.6 fL (80.0-100.0); RBC 2.61 mil/uL (4.20-5.00); RDW 15.6 % (10.5-14.5); WBC 3.1 thou/uL (4.0-11.0)
[2020-03-21 06:33] LABS: CALCIUM 7.9 mg/dL (8.5-10.1); CREATININE 1.1 mg/dL (0.6-1.0); POTASSIUM 3.3 mmol/L (3.5-5.1)
[2020-03-21 07:48] VITALS: BP 162/80
[2020-03-21 11:40] VITALS: BP 119/69
[2020-03-21 15:48] VITALS: BP 139/73
[2020-03-21 20:20] VITALS: BP 155/80
[2020-03-22 04:18] VITALS: BP 150/88
[2020-03-22 07:05] VITALS: BP 192/106
[2020-03-22 17:00] VITALS: BP 147/84
[2020-03-22 20:30] VITALS: BP 155/82
[2020-03-23 05:08] VITALS: BP 136/91
[2020-03-23 08:52] VITALS: BP 136/82
[2020-03-23] MEDS ORDERED: LASIX 40 MG TAB40 MG PO ×2 (12:04)
[2020-03-23] MEDS ORDERED: INVANZ1 GM IV ×2 (12:04)
[2020-03-23 12:55] VITALS: BP 156/90
--- NOTE | 2020-03-26 08:10 | HC ---
[facility] [place] [address] CONSULTATION Name: PRITESH KILPATRICK Room #: 219-P [facility] IN M.R.#: [id number] Admission: 03/19/20 Attend Phys: Ena Donahue MD Discharge: 03/23/20 Date of : 55 Report #: [id number] THIS REPORT FOR: cc: Carlito Dutta MD, Neal A. MD Althoff, Jeffrey R. MD ~ CC: Ena Dutta DATE OF SERVICE: 03/20/2020 CHIEF COMPLAINT: Bilateral lower extremity ulcerations. HISTORY OF PRESENT ILLNESS: This is a 64-year-old female patient who was recently here at [facility] with bacteremia and multiple abscesses on her lower extremities. She underwent surgical incision and drainage and was cared for with local packing. She has been readmitted now with acute hypoxemic respiratory failure and altered mental status and I have been asked to see her with regard to the wounds on her legs. PAST MEDICAL HISTORY: Positive for right knee infection and lower extremity abscesses, tricuspid regurgitation, anemia, severe malnutrition, coronary artery disease, respiratory failure and altered mental status. SOCIAL HISTORY: Negative for alcohol or tobacco use. FAMILY HISTORY: Noncontributory. REVIEW OF SYSTEMS: Not obtainable at this time due to the patient's somnolence. MEDICATIONS: Oxycodone, fentanyl, ondansetron, alprazolam, vitamin D2, pantoprazole, albuterol and famotidine. ALLERGIES: BEE STINGS, DOXYCYCLINE, PENICILLIN and OLMESARTAN. PHYSICAL EXAMINATION: VITAL SIGNS: Include temperature 37.3, pulse 78, respiratory rate 20, blood pressure 165/67. GENERAL: This is a chronically ill-appearing female patient who appears to be somnolent. HEENT: Head normocephalic. Nose and throat are clear. LUNGS: Diminished. HEART: Regular rhythm. ABDOMEN: Soft. Bowel sounds present. EXTREMITIES: Lower extremities demonstrate multiple surgical wounds following incision and drainage procedures performed earlier. These are not infected [facility] [address] [place] [address] CONSULTATION Name: PRITESH KILPATRICK Room #: 219-P [facility] IN M.R.#: [id number] Admission: 03/19/20 Attend Phys: Ena Donahue MD Discharge: 03/23/20 Date of : 55 Report #: [id number] appearing at this time, very shallow and show evidence of healing with only slight drainage. LABORATORY STUDIES: Include sodium 138, potassium 3.7, chloride 105, CO2 of 26, BUN 13, creatinine 1.3, glucose 76, albumin is low at 1.9. White blood cell count 4.2 with a hemoglobin of 24.1. CLINICAL IMPRESSION: 1. Surgical wounds following multiple abscesses to both lower legs. 2. Acute mental status changes. 3. Acute kidney injury on chronic kidney disease. 4. Tricuspid regurgitation. 5. Severe pulmonary hypertension. RECOMMENDATIONS: At this point in time, there is really very little area for packing in her legs. We recommend topical bordered foam dressings to be applied Thursday, Thursday, Thursday and as needed for drainage. She will be continuing current medications and receiving intravenous antibiotics per Infectious Disease recommendations. She will need ongoing nutritional support to maximize wound healing. I appreciate being asked to see her in consultation. <ELECTRONICALLY SIGNED> By: Beny Ibarra MD 03/26/20 0810 [id number] Beny Ibarra MD /nt
== END 2020-03-23 15:00 | disposition home or self-care (01) | DRG 548 ==
LOC: ER 10:09 → ICU 14:50 → EROBS 14:50 → 2N 14:50 → ICU 20:48 → 2N 03-20 14:23
PROVIDERS: Emergency Medicine; Hospitalist; Nurse Practitioner Family; ADMIT Internal Medicine; ATTEND Internal Medicine
DX: M00.261 Other streptococcal arthritis, right knee (principal); R65.20 Severe sepsis without septic shock; J96.01 Acute respiratory failure with hypoxia; E43 Unspecified severe protein-calorie malnutrition; J69.0 Pneumonitis due to inhalation of food and vomit; G92 Toxic encephalopathy; L03.115 Cellulitis of right lower limb; N17.9 Acute kidney failure, unspecified; L02.416 Cutaneous abscess of left lower limb; L02.415 Cutaneous abscess of right lower limb; I38 Endocarditis, valve unspecified; B95.0 Streptococcus, group A, as the cause of diseases classified elsewhere; K21.9 Gastro-esophageal reflux disease without esophagitis; J45.909 Unspecified asthma, uncomplicated; K57.90 Diverticulosis of intestine, part unspecified, without perforation or abscess without bleeding; F32.9 Major depressive disorder, single episode, unspecified; F41.9 Anxiety disorder, unspecified; T40.605A Adverse effect of unspecified narcotics, initial encounter; I25.10 Atherosclerotic heart disease of native coronary artery without angina pectoris; I27.20 Pulmonary hypertension, unspecified; I12.9 Hypertensive chronic kidney disease with stage 1 through stage 4 chronic kidney disease, or unspecified chronic kidney disease; N18.9 Chronic kidney disease, unspecified; I07.1 Rheumatic tricuspid insufficiency; G47.10 Hypersomnia, unspecified; D64.9 Anemia, unspecified; Z20.828 Contact with and (suspected) exposure to other viral communicable diseases; M41.9 Scoliosis, unspecified; G89.29 Other chronic pain; M54.9 Dorsalgia, unspecified; M54.2 Cervicalgia; E87.6 Hypokalemia; L27.0 Generalized skin eruption due to drugs and medicaments taken internally; Z87.81 Personal history of (healed) traumatic fracture; Z88.0 Allergy status to penicillin; Z81.1 Family history of alcohol abuse and dependence; Z90.49 Acquired absence of other specified parts of digestive tract; Z95.5 Presence of coronary angioplasty implant and graft; Z88.8 Allergy status to other drugs, medicaments and biological substances; Y92.89 Other specified places as the place of occurrence of the external cause; Z68.27 Body mass index [BMI] 27.0-27.9, adult
CPT/HCPCS: 10078; 10081; 10194

== ENCOUNTER 2020-03-23 20:33 | Emergency (ER) | payer OTHER, BC ==
[~2020-03-23] VITALS: Ht 167.6 cm; Wt 74.8 kg
--- NOTE | ~2020-03-23 | EMS ---
[address] [address] EMS Patient Care Report Name: PRITESH KILPATRICK Room #: REG ELIZABETH Garcia#: [id number] Admission: 03/23/20 Attend Phys: Discharge: Date of : 55 Report #: [id number] THIS REPORT FOR: //name// Report Transmitted: 03/23/2020 20:40 EMS Care Summary [facility] MED-ACT Incident [id number] @ 03/23/2020 20:00 Incident Location [address] [place] [address] Patient PRITESH KILPTARICK Female, 64 Years 1955 Patient Address [address] [place] [address] Patient History Hypertension (HTN),Gastro-Esophageal Reflux Disease (GERD),Osteoporosis,Anxiety,Chronic Kidney Disease,Cellulitis,Coronary Artery Disease (CAD), Patient Allergies Penicillin allergy,Doxycycline,Other drug allergy, Patient Medications Fentanyl, Hydrocodone, Norvasc, Cyclobenzaprine, Ventolin, Pantoprazole, Lyrica, Quetiapine, Alprazolam, Percocet, Acetaminophen, Metoprolol, Zofran, Ceftriaxone, [place], Chief Complaint She was not responding on the toilet Disposition Transported No Lights/[place] Dispatch Reason Falls Transported To [address] [address] EMS Patient Care Report Name: PRITESH KILPATRICK Room #: REG [facility]#: [id number] Admission: 03/23/20 Attend Phys: Discharge: Date of : 55 Report #: [id number] Narrative Arrived to find pt seated in wheelchair in room, awake but somnolent. Pt aroused to verbal, a&o4 and NAD. Pt in the presence of facility staff and [facility]#47 personnel. Staff report pt had just been released from the hospital earlier today and arrived at the facility for rehab. Pt had been admitted at [facility] for sepsis and narcotic induced altered mental status. Staff report pt presented initially at the facility today with the same mental status she is exhibiting upon EMS arrival. Staff report they found pt seated on the toilet in her bathroom, slow to respond, hypotensive and with a low sp02. Upon [facility] arrival, they were able to get pt off the toilet and into the wheelchair. Pts vital signs were assessed and found to be stable. Pt did have a bowel movement but denies increased straining or difficulty having the bowel movement. Pt reports she had "rolled" out of bed onto her knees because she couldn't find her call light. Pt states she crawled into the bathroom and sat on the toilet and that is when staff found pt. Pt was able to stand with minimal assistance from the wheelchair and then sat down on the cot. Pt secured with cot straps in supine position and taken to MICU for non-emergent transport to [facility] as facility requested. Pt condition remained unchanged throughout transport. Pt was moved from cot to hospital bed via sheet without incident. Pt report and transfer of care given to ER room #7. Initial Vitals @20:21P: 62,SpO2: 98,IN Suspected: false @20:20P: 61,R: 16,BP: 135/72,Pain: 0/10,GCS: 15,Glucose: 135,SpO2: 98,Revised Trauma: 12, @20:27P: 60,R: 16,BP: 120/63,Pain: 0/10,GCS: 15,SpO2: 99,Revised Trauma: 12, Assessments @20:12MENTAL:Person Oriented,Time Oriented,Place Oriented,Event Oriented,SKIN:Cold,HEENT:Eyes: Left: Constricted,Eyes: Right: Constricted,Head/Face: No Abnormalities,LUNG SOUNDS:ABDOMEN:PELVIS//GI:EXTREMITIES:Left Arm: No Abnormalities,Right Arm: No Abnormalities,Left Leg: No Abnormalities,Right Leg: No Abnormalities,PULSE:Radial: 2+ Normal,NEURO:No Abnormalities, Impression Hypotension Timeline 19:58,Call Received [address] [address] EMS Patient Care Report Name: PRITESH KILPATRICK Room #: REG M.R.#: [id number] Admission: 03/23/20 Attend Phys: Discharge: Date of : 55 Report #: [id number] 19:58,Psap Call 20:00,Dispatched 20:01,En Route 20:08,On Scene 20:10,At Patient 20:20,BP: 135/72 M,PULSE: 61,RR: 16 R,SPO2: 98 Ox,ETCO2: ,B,PAIN: 0,GCS: 15, 20:21,Depart Scene 20:21,BP: / M,PULSE: 62,RR: R,SPO2: 98 Ox,ETCO2: ,BG: ,PAIN: ,GCS: , 20:27,BP: 120/63 M,PULSE: 60,RR: 16 R,SPO2: 99 Ox,ETCO2: ,BG: ,PAIN: 0,GCS: 15, 20:28,At Destination 20:44,Call Closed Disclaimer v1.1 Copyright 2020 [employer] This EMS Care Summary contains data elements from the applicable legal record (which may be displayed differently). It is designed to provide pertinent information for the following purposes: continuity of care, clinical quality, and state data reporting. The complete legal record is available to ED staff and administrators of the receiving hospital in [employer]'s Patient Tracker. All data is provided "as is."
[~2020-03-23 20:33] MED LIST changes: +DURAGESIC1 EAC2 TRANSDERM; +INVANZ1 GM IV; +LASIX 40 MG TAB40 MG PO; +PERCOCET 10-321 EAC1 PO
[2020-03-23 21:19] LABS: ABSOLUTE NEUTROPHILS 2.2 thou/uL (1.4-8.2); BASOPHILS 1.3 % (0.0-2.0); EOSINOPHILS 4.7 % (0.0-3.0); MCH 28.8 pg (26.0-34.0); MCV 87.3 fL (80.0-100.0); MONOCYTES 8.3 % (1.0-8.0); PLATELET COUNT 236 thou/uL (150-400); POLYS 62.7 % (36.0-66.0); RBC 3.55 mil/uL (4.20-5.00); RDW 15.9 % (10.5-14.5); WBC 3.5 thou/uL (4.0-11.0)
[2020-03-23 21:25] LABS: HEMOGLOBIN 10.2 gm/dL (12.0-15.0)
[2020-03-23 21:26] LABS: ANION GAP 10 mmol/L (7-16); BUN 12 mg/dL (7-18); CALCIUM 8.9 mg/dL (8.5-10.1); CHLORIDE 101 mmol/L (98-107); CO2 24 mmol/L (21-32); CREATININE 1.4 mg/dL (0.6-1.0); GLUCOSE 113 mg/dL (74-106); POTASSIUM 4.3 mmol/L (3.5-5.1); SODIUM 135 mmol/L (136-145)
[2020-03-23 21:34] LABS: TROPONIN-I <0.06 ng/mL (<0.06)
[2020-03-23 21:44] LABS: URINE BILIRUBIN NEGATIVE (Negative); URINE BLOOD TRACE (Negative); URINE CLARITY CLEAR; URINE COLOR YELLOW; URINE GLUCOSE-RANDOM* NEGATIVE (Negative); URINE KETONES 1+ (Negative); URINE LEUKOCYTES-REFLEX NEGATIVE (Negative); URINE NITRITE-REFLEX NEGATIVE (Negative); URINE PROTEIN (DIPSTICK) 1+ (Negative); URINE SPECIFIC GRAVITY 1.025 (1.005-1.035); URINE UROBILINOGEN 0.2 E.U./dl (0.2-1.0)
[2020-03-23 21:51] LABS: AMORPHOUS URATES Few /LPF (None Seen); BACTERIA-REFLEX None Seen /HPF (None Seen); CRYSTALS None Seen /LPF (None Seen); MUCUS 0-3 Light strn/LPF (None Seen); SQUAMOUS None Seen /LPF (0-3)
[2020-03-23 21:52] LABS: FINE GRANULAR CASTS 0-3 Few /LPF (None Seen); URINE RBC 0-2 Rare /HPF (0-2); URINE WBC-REFLEX 0-5 Rare /HPF (0-5)
[2020-03-24 01:52] VITALS: BP 135/63
--- NOTE | 2020-03-24 09:48 | EKG ---
[facility] [place] [address] ELECTROCARDIOGRAM REPORT Name: PRITESH KILPATRICK Room #: DEP [facility].#: [id number] Admission: 03/23/20 Attend Phys: Discharge: 03/24/20 Date of : 55 Report #: [id number] THIS REPORT FOR: cc: Carlito Dutta MD, Neal A. MD Lundgren,Dejuan Rojas MD [facility] ~ THIS REPORT FOR: //name// [facility] ED Test Date: 2020-03-23 Test Time: 20:45:57 Pat Name: PRITESH KILPATRICK Department: Room: Gender: F Sorter Packer[facility] 1955 Requested By: Eric Londono Order Number: [id number] MD: Dejuan Mays Measurements Intervals [place] Rate: 63 P: 7 NC: 142 QRS: 12 QRSD: 85 T: 32 QT: 452 QTc: 463 Interpretive Statements Sinus rhythm Multiple premature complexes, supraven Compared to ECG 02/22/2020 18:37:34 Sinus tachycardia no longer present Electronically Signed On 03-24-2020 9:47:34 CDT by Dejuan Mays [email or web address] <ELECTRONICALLY SIGNED> By: Dejuan Mays MD, [facility] 03/24/20 0947 44 44 Dejuan Mays MD, [facility] /EPI
== END 2020-03-24 00:25 | disposition home or self-care (01) ==
LOC: ER 20:33
PROVIDERS: Emergency Medicine
DX: R55 Syncope and collapse (principal); R41.82 Altered mental status, unspecified; M19.90 Unspecified osteoarthritis, unspecified site; K21.9 Gastro-esophageal reflux disease without esophagitis; J45.909 Unspecified asthma, uncomplicated; F32.9 Major depressive disorder, single episode, unspecified; F41.9 Anxiety disorder, unspecified; Z90.49 Acquired absence of other specified parts of digestive tract; Z90.89 Acquired absence of other organs; Z98.890 Other specified postprocedural states; Z95.5 Presence of coronary angioplasty implant and graft; Z79.899 Other long term (current) drug therapy; Z91.030 Bee allergy status; Z88.0 Allergy status to penicillin; Z88.1 Allergy status to other antibiotic agents; Z88.8 Allergy status to other drugs, medicaments and biological substances